=== PATIENT | female | born 1945 | race Caucasian/White ===

== ENCOUNTER → 2017-04-30 | Outpatient (CLI) | payer OTHER ==
[~2017-04-30] MED LIST: AZIT250 PO; Aspir 8181 MG PO; BENZ100A PO; BREO ELLIPTA 21 EACH INH; BUME2 PO; CEPH250A PO; DESL5; ESTR1; FLUT220OIA; LANS30PKT; LINZESS145 MCG PO; LOSA50 PO; MELO7.5 PO; MIRALAX17 GM PO; MOXIOPS RIGHTEYE; Omeprazole20 M1 PO; POTA10T PO; PRAV20; PROACE50 PO; Pravachol40 MG PO; VENL150ER PO; VENL75ER; ZAFI20 PO; [UNRECOGNIZED DRUG - OTHER]
== END | disposition home or self-care (01) ==
LOC: LAB EV 14:55
DX: N39.0 Urinary tract infection, site not specified (principal)
CPT/HCPCS: 87077; 87086; 87186

== ENCOUNTER → 2017-08-25 | Outpatient (CLI) | payer OTHER ==
[~2017-08-25] MED LIST changes: -AZIT250 PO; -Aspir 8181 MG PO; -BENZ100A PO; -BREO ELLIPTA 21 EACH INH; -BUME2 PO; -CEPH250A PO; -LINZESS145 MCG PO; -LOSA50 PO; -MELO7.5 PO; -MIRALAX17 GM PO; -MOXIOPS RIGHTEYE; -Omeprazole20 M1 PO; -POTA10T PO; -Pravachol40 MG PO; -VENL150ER PO; -ZAFI20 PO
== END | disposition home or self-care (01) ==
LOC: LAB SHORT 18:25 → LAB EV 18:25
DX: N39.0 Urinary tract infection, site not specified (principal)
CPT/HCPCS: 87077; 87086; 87186

== ENCOUNTER → 2017-10-18 | Outpatient (CLI) | payer OTHER | END | disposition home or self-care (01) | LOC: LAB 16:45 → LAB SHORT 16:45 | DX: R10.9 Unspecified abdominal pain (principal) | CPT/HCPCS: 87177; 87209 ==

== ENCOUNTER 2018-02-22 18:00 | Inpatient (IN) | payer OTHER ==
[~2018-02-22] VITALS: Ht 162.6 cm; Wt 87.8 kg
[~2018-02-22 18:00] MED LIST changes: +Aspir 8181 MG PO; +BUME2 PO; +CEPH250A PO; +LINZESS145 MCG PO; +LOSA50 PO; +Omeprazole20 M1 PO; +POTA10T PO; +Pravachol40 MG PO; +VENL150ER PO; +ZAFI20 PO
[2018-02-22 19:06] LABS: Magnesium, Blood 1.9 mg/dL (1.6-2.4); Troponin I 0.145 ng/mL (0.000-0.040)
[2018-02-22 19:11] LABS: Albumin, Blood 2.5 g/dL (3.4-5.0); Albumin/Globulin Ratio 0.9 (0.8-1.8); Bilirubin, Total 0.8 mg/dL (0.1-1.0); Bun/Creatinine Ratio 23.2 (12.0-20.0); Calcium, Blood 8.3 mg/dL (8.5-10.1); Creatinine, Blood 1.51 mg/dL (0.40-1.00); Globulin, Blood 2.8 g/dL (2.2-4.0); Potassium, Blood 5.4 mmol/L (3.5-5.5); Total Protein, Blood 5.3 g/dL (6.4-8.2)
[2018-02-22 19:47] LABS: BASOPHILS PERCENT AUTO 0 % (0-2); EOSINOPHILS ABSOLUTE AUTO 0.12 K/mm3 (0.00-0.68); EOSINOPHILS PERCENT AUTO 2 % (0-6); IMMATURE GRAN ABSOLUTE AUTO 0.04 K/mm3 (0.00-0.10); IMMATURE GRAN PERCENT AUTO 1 % (0-1); LYMPHOCYTES ABSOLUTE AUTO 1.32 K/mm3 (0.84-5.20); LYMPHOCYTES PERCENT AUTO 19 % (21-46); MONOCYTES ABSOLUTE AUTO 1.03 K/mm3 (0.16-1.47); MONOCYTES PERCENT AUTO 15 % (4-13); Mean Corpuscular HGB 25.2 pg (26.0-34.0); Mean Corpuscular HGB Conc 29.8 g/dL (31.5-36.5); Mean Corpuscular Volume 85 fL (80-100); Mean Platelet Volume 10.4 fL (9.1-12.4); NEUTROPHILS ABSOLUTE AUTO 4.41 K/mm3 (1.96-9.15); NEUTROPHILS PERCENT AUTO 64 % (41-73); Platelet Count 241 K/mm3 (150-400); RDW Coefficient Variation 14.4 % (11.7-14.2); RDW Standard Deviation 44.4 fL (35.1-46.3); Red Blood Cell Count 1.43 M/mm3 (3.80-5.20); White Blood Cell Count 6.92 K/mm3 (4.00-11.30)
[2018-02-22 19:49] LABS: Hematocrit 12.1 % (33.0-51.0); Hemoglobin 3.6 g/dL (11.5-16.0)
[2018-02-22 19:50] LABS: International Normalized Ratio 1.24; Prothrombin Time Results 12.6 Sec (9.7-11.5)
[2018-02-22] MEDS ORDERED: BREO ELLIPTA 21 EACH INH (21:53)
[2018-02-23 02:21] LABS: Hematocrit 22.1 % (33.0-51.0); Hemoglobin 7.1 g/dL (11.5-16.0)
[2018-02-23 02:40] LABS: Albumin, Blood 2.4 g/dL (3.4-5.0); Albumin/Globulin Ratio 0.9 (0.8-1.8); Bilirubin, Total 1.9 mg/dL (0.1-1.0); Bun/Creatinine Ratio 22.9 (12.0-20.0); Calcium, Blood 7.9 mg/dL (8.5-10.1); Creatinine, Blood 1.44 mg/dL (0.40-1.00); Globulin, Blood 2.6 g/dL (2.2-4.0); Potassium, Blood 4.8 mmol/L (3.5-5.5)
[2018-02-23 05:56] LABS: BASOPHILS ABSOLUTE AUTO 0.02 K/mm3 (0.00-0.23); BASOPHILS PERCENT AUTO 0 % (0-2); EOSINOPHILS ABSOLUTE AUTO 0.08 K/mm3 (0.00-0.68); EOSINOPHILS PERCENT AUTO 1 % (0-6); Hematocrit 21.8 % (33.0-51.0); Hemoglobin 7.2 g/dL (11.5-16.0); IMMATURE GRAN ABSOLUTE AUTO 0.02 K/mm3 (0.00-0.10); IMMATURE GRAN PERCENT AUTO 0 % (0-1); LYMPHOCYTES ABSOLUTE AUTO 1.41 K/mm3 (0.84-5.20); LYMPHOCYTES PERCENT AUTO 25 % (21-46); MONOCYTES ABSOLUTE AUTO 0.85 K/mm3 (0.16-1.47); MONOCYTES PERCENT AUTO 15 % (4-13); Mean Corpuscular HGB 28.3 pg (26.0-34.0); Mean Corpuscular Volume 86 fL (80-100); Mean Platelet Volume 9.7 fL (9.1-12.4); NEUTROPHILS ABSOLUTE AUTO 3.35 K/mm3 (1.96-9.15); NEUTROPHILS PERCENT AUTO 59 % (41-73); Platelet Count 166 K/mm3 (150-400); RDW Coefficient Variation 14.5 % (11.7-14.2); Red Blood Cell Count 2.54 M/mm3 (3.80-5.20); White Blood Cell Count 5.73 K/mm3 (4.00-11.30)
[2018-02-23] MEDS ORDERED: MIRALAX17 GM PO (07:03)
[2018-02-23 10:02] LABS: Hematocrit 22.2 % (33.0-51.0); Hemoglobin 7.2 g/dL (11.5-16.0)
[2018-02-23 10:42] LABS: International Normalized Ratio 1.25; Prothrombin Time Results 12.7 Sec (9.7-11.5)
[2018-02-23 21:30] LABS: Hematocrit 24.7 % (33.0-51.0); Hemoglobin 8.2 g/dL (11.5-16.0)
[2018-02-24 03:38] LABS: Hematocrit 25.6 % (33.0-51.0); Hemoglobin 8.3 g/dL (11.5-16.0)
[2018-02-24 03:39] LABS: BASOPHILS ABSOLUTE AUTO 0.03 K/mm3 (0.00-0.23); BASOPHILS PERCENT AUTO 1 % (0-2); EOSINOPHILS ABSOLUTE AUTO 0.11 K/mm3 (0.00-0.68); EOSINOPHILS PERCENT AUTO 2 % (0-6); Hemoglobin 8.3 g/dL (11.5-16.0); IMMATURE GRAN ABSOLUTE AUTO 0.04 K/mm3 (0.00-0.10); IMMATURE GRAN PERCENT AUTO 1 % (0-1); LYMPHOCYTES ABSOLUTE AUTO 1.38 K/mm3 (0.84-5.20); LYMPHOCYTES PERCENT AUTO 21 % (21-46); MONOCYTES ABSOLUTE AUTO 0.95 K/mm3 (0.16-1.47); MONOCYTES PERCENT AUTO 14 % (4-13); Mean Corpuscular HGB Conc 33.2 g/dL (31.5-36.5); Mean Corpuscular Volume 85 fL (80-100); Mean Platelet Volume 9.7 fL (9.1-12.4); NEUTROPHILS ABSOLUTE AUTO 4.08 K/mm3 (1.96-9.15); NEUTROPHILS PERCENT AUTO 62 % (41-73); Platelet Count 159 K/mm3 (150-400); RDW Coefficient Variation 15.1 % (11.7-14.2); RDW Standard Deviation 46.6 fL (35.1-46.3); Red Blood Cell Count 2.96 M/mm3 (3.80-5.20); White Blood Cell Count 6.59 K/mm3 (4.00-11.30)
[2018-02-24 03:53] LABS: Bun/Creatinine Ratio 20.4 (12.0-20.0); Creatinine, Blood 1.08 mg/dL (0.40-1.00); Potassium, Blood 4.2 mmol/L (3.5-5.5)
[2018-02-24 09:46] LABS: Hematocrit 25.1 % (33.0-51.0); Hemoglobin 8.2 g/dL (11.5-16.0)
[2018-02-24 12:21] LABS: Source, Urine Clean Catch
[2018-02-24 12:35] LABS: Appearance, Urine Hazy (Clear); Bilirubin, Urine Neg (Neg); Blood, Urine 1+ (Neg); Color, Urine Yellow (P-Yellow); Glucose Qualitative, Urine Neg (Neg); Ketones, Urine Neg (Neg); Leukocyte Esterase, Urine 2+ (Neg); Nitrite, Urine Pos (Neg); Protein, Urine 1+ (Neg); Specific Gravity, Urine 1.015 (1.003-1.022); Urobilinogen, Urine NORM (Normal)
[2018-02-24] MEDS ORDERED: MELO7.5 PO (13:01)
[2018-02-24] MEDS ORDERED: CEPH250A PO (13:02)
[2018-02-24 13:04] LABS: Bacteria Many /hpf; Squamous Epithelial Cells Few /hpf (Few); White Blood Cells, Urine 50-100 /hpf (0-5)
[2018-02-24] MEDS ORDERED: LINZESS145 MCG PO (13:10)
[2018-02-24] MEDS ORDERED: BENZ100A PO (13:11)
[2018-02-24] MEDS ORDERED: MOXIOPS RIGHTEYE (13:13)
[2018-02-24] MEDS ORDERED: AZIT250 PO (13:15)
[2018-02-25 08:06] LABS: BASOPHILS ABSOLUTE AUTO 0.03 K/mm3 (0.00-0.23); BASOPHILS PERCENT AUTO 0 % (0-2); EOSINOPHILS PERCENT AUTO 1 % (0-6); Hematocrit 25.3 % (33.0-51.0); Hemoglobin 7.9 g/dL (11.5-16.0); IMMATURE GRAN ABSOLUTE AUTO 0.05 K/mm3 (0.00-0.10); IMMATURE GRAN PERCENT AUTO 0 % (0-1); LYMPHOCYTES ABSOLUTE AUTO 0.88 K/mm3 (0.84-5.20); LYMPHOCYTES PERCENT AUTO 7 % (21-46); MONOCYTES ABSOLUTE AUTO 1.58 K/mm3 (0.16-1.47); MONOCYTES PERCENT AUTO 13 % (4-13); Mean Corpuscular HGB 28.2 pg (26.0-34.0); Mean Corpuscular HGB Conc 31.2 g/dL (31.5-36.5); Mean Platelet Volume 9.7 fL (9.1-12.4); NEUTROPHILS ABSOLUTE AUTO 9.93 K/mm3 (1.96-9.15); NEUTROPHILS PERCENT AUTO 79 % (41-73); Platelet Count 190 K/mm3 (150-400); RDW Coefficient Variation 15.7 % (11.7-14.2); RDW Standard Deviation 52.3 fL (35.1-46.3); White Blood Cell Count 12.57 K/mm3 (4.00-11.30)
[2018-02-25 08:30] LABS: Mean Corpuscular Volume 90 fL (80-100)
[2018-02-25 08:31] LABS: Anion Gap 6 mmol/L (6-16); Blood Urea Nitrogen 16 mg/dL (8-24); Bun/Creatinine Ratio 17.7 (12.0-20.0); CO2, Blood 24 mmol/L (21-32); Calcium, Blood 8.1 mg/dL (8.5-10.1); Chloride, Blood 112 mmol/L (98-108); Creatinine, Blood 0.91 mg/dL (0.40-1.00); Glomerular Filtration Rate >60 (60-); Glucose, Blood 114 mg/dL (70-99); Potassium, Blood 4.3 mmol/L (3.5-5.5); Sodium, Blood 142 mmol/L (136-145)
[2018-02-26 06:07] LABS: BASOPHILS ABSOLUTE AUTO 0.03 K/mm3 (0.00-0.23); BASOPHILS PERCENT AUTO 0 % (0-2); EOSINOPHILS ABSOLUTE AUTO 0.11 K/mm3 (0.00-0.68); EOSINOPHILS PERCENT AUTO 1 % (0-6); Hematocrit 24.4 % (33.0-51.0); Hemoglobin 7.7 g/dL (11.5-16.0); IMMATURE GRAN ABSOLUTE AUTO 0.04 K/mm3 (0.00-0.10); IMMATURE GRAN PERCENT AUTO 0 % (0-1); LYMPHOCYTES ABSOLUTE AUTO 1.01 K/mm3 (0.84-5.20); LYMPHOCYTES PERCENT AUTO 9 % (21-46); MONOCYTES ABSOLUTE AUTO 1.25 K/mm3 (0.16-1.47); MONOCYTES PERCENT AUTO 11 % (4-13); Mean Corpuscular HGB 28.4 pg (26.0-34.0); Mean Corpuscular HGB Conc 31.6 g/dL (31.5-36.5); Mean Corpuscular Volume 90 fL (80-100); Mean Platelet Volume 9.3 fL (9.1-12.4); NEUTROPHILS PERCENT AUTO 79 % (41-73); Platelet Count 161 K/mm3 (150-400); RDW Coefficient Variation 15.7 % (11.7-14.2); RDW Standard Deviation 50.4 fL (35.1-46.3); Red Blood Cell Count 2.71 M/mm3 (3.80-5.20); White Blood Cell Count 11.74 K/mm3 (4.00-11.30)
[2018-02-26 06:25] LABS: Albumin, Blood 2.3 g/dL (3.4-5.0); Anion Gap 6 mmol/L (6-16); Blood Urea Nitrogen 19 mg/dL (8-24); Bun/Creatinine Ratio 17.6 (12.0-20.0); CO2, Blood 24 mmol/L (21-32); Calcium, Blood 8.1 mg/dL (8.5-10.1); Chloride, Blood 111 mmol/L (98-108); Creatinine, Blood 1.08 mg/dL (0.40-1.00); Glomerular Filtration Rate 53 (60-); Glucose, Blood 103 mg/dL (70-99); Phosphorus, Blood 2.4 mg/dL (2.5-4.9); Potassium, Blood 4.2 mmol/L (3.5-5.5); Sodium, Blood 141 mmol/L (136-145)
[2018-02-27 04:40] LABS: Hematocrit 27.1 % (33.0-51.0); Hemoglobin 8.8 g/dL (11.5-16.0); Mean Corpuscular HGB 28.7 pg (26.0-34.0); Mean Corpuscular HGB Conc 32.5 g/dL (31.5-36.5); Mean Corpuscular Volume 88 fL (80-100); Mean Platelet Volume 9.5 fL (9.1-12.4); Platelet Count 148 K/mm3 (150-400); RDW Coefficient Variation 16.4 % (11.7-14.2); RDW Standard Deviation 50.4 fL (35.1-46.3); Red Blood Cell Count 3.07 M/mm3 (3.80-5.20); White Blood Cell Count 9.13 K/mm3 (4.00-11.30)
[2018-02-27 05:14] LABS: Albumin, Blood 2.3 g/dL (3.4-5.0); Anion Gap 7 mmol/L (6-16); Blood Urea Nitrogen 16 mg/dL (8-24); Bun/Creatinine Ratio 17.9 (12.0-20.0); CO2, Blood 24 mmol/L (21-32); Calcium, Blood 8.1 mg/dL (8.5-10.1); Chloride, Blood 111 mmol/L (98-108); Glomerular Filtration Rate >60 (60-); Glucose, Blood 83 mg/dL (70-99); Phosphorus, Blood 2.6 mg/dL (2.5-4.9); Potassium, Blood 4.1 mmol/L (3.5-5.5); Sodium, Blood 142 mmol/L (136-145)
== END 2018-03-01 14:16 | DRG 347 ==
LOC: ER 18:00 → ICUW 20:47 → SURS 02-24 15:00
PROVIDERS: Emergency Medicine; Family Medicine; Internal Medicine; Nurse Practitioner Acute Care; Surgery
PROC: 30233N1 Transfusion of Nonautologous Red Blood Cells into Peripheral Vein, Percutaneous Approach (ICD-10-PCS; 2018-02-23)
PROC: 30233K1 Transfusion of Nonautologous Frozen Plasma into Peripheral Vein, Percutaneous Approach (ICD-10-PCS; 2018-02-23)
PROC: 06BY0ZC Excision of Hemorrhoidal Plexus, Open Approach (ICD-10-PCS; principal; 2018-02-24 17:00)
DX: K64.8 Other hemorrhoids (principal); R57.8 Other shock; D62 Acute posthemorrhagic anemia; N17.9 Acute kidney failure, unspecified; K76.6 Portal hypertension; N39.0 Urinary tract infection, site not specified; I50.30 Unspecified diastolic (congestive) heart failure; E78.5 Hyperlipidemia, unspecified; R79.89 Other specified abnormal findings of blood chemistry; F32.9 Major depressive disorder, single episode, unspecified; K64.2 Third degree hemorrhoids; B96.20 Unspecified Escherichia coli [E. coli] as the cause of diseases classified elsewhere; I11.0 Hypertensive heart disease with heart failure; R53.81 Other malaise; J20.9 Acute bronchitis, unspecified
CPT/HCPCS: 36415; 36430; 71045; 78278; 80048; 80053; 80069; 81001; 82550; 82947; 83735; 83880; 84484; 85014; 85018; 85025; 85027; 85610; 85730; 86850; 86900; 86901; 86923; 87077; 87086; 87186; 88304; 93005; 93010; 93306; 94640; 94760; 96360; 97110; 97116; 97162; 97166; 97530; 97535; 99285-25; A9560; C9113; G8978; G8979; G8987; G8988; J0696; J1170; J1940; J2250; J3010; J7030; J7040; J7120; P9016; P9059

== ENCOUNTER → 2018-08-15 | Outpatient (CLI) | payer OTHER ==
[~2018-08-15] MED LIST changes: +AZIT250 PO; +BENZ100A PO; +BREO ELLIPTA 21 EACH INH; +MELO7.5 PO; +MIRALAX17 GM PO; +MOXIOPS RIGHTEYE
[2018-08-17 05:53] LABS: Stool Occult Bld Immuno 1 Negative (NEGATIVE); Stool Occult Bld Immuno 2 Negative (NEGATIVE); Stool Occult Bld Immuno 3 Negative (NEGATIVE)
== END | disposition home or self-care (01) ==
LOC: LAB SHORT 12:07 → LAB 12:07
PROVIDERS: Physician Assistant
DX: D50.9 Iron deficiency anemia, unspecified (principal)
CPT/HCPCS: 82274

== ENCOUNTER 2019-04-04 16:29 | Inpatient (IN) | payer OTHER ==
[~2019-04-04] VITALS: Ht 165.1 cm; Wt 76.0 kg
[~2019-04-04 16:29] MED LIST changes: -VENL150ER PO; +VENL75ER PO
[2019-04-04 17:53] LABS: Source, Urine Voided
[2019-04-04 17:58] LABS: Appearance, Urine Clear (Clear); Blood, Urine 1+ (Neg); Color, Urine Amber (P-Yellow); Glucose Qualitative, Urine Neg (Neg); Ketones, Urine 1+ (Neg); Leukocyte Esterase, Urine 1+ (Neg); Nitrite, Urine Neg (Neg); Protein, Urine 1+ (Neg); Specific Gravity, Urine 1.015 (1.003-1.022); Urobilinogen, Urine 2+ (Normal)
[2019-04-04 18:01] LABS: BASOPHILS ABSOLUTE AUTO 0.02 K/mm3 (0.00-0.23); BASOPHILS PERCENT AUTO 0 % (0-2); EOSINOPHILS PERCENT AUTO 4 % (0-6); Hematocrit 23.2 % (33.0-51.0); Hemoglobin 7.5 g/dL (11.5-16.0); IMMATURE GRAN ABSOLUTE AUTO 0.03 K/mm3 (0.00-0.10); IMMATURE GRAN PERCENT AUTO 1 % (0-1); LYMPHOCYTES ABSOLUTE AUTO 0.95 K/mm3 (0.84-5.20); LYMPHOCYTES PERCENT AUTO 17 % (21-46); MONOCYTES ABSOLUTE AUTO 0.55 K/mm3 (0.16-1.47); MONOCYTES PERCENT AUTO 10 % (4-13); Mean Corpuscular HGB 30.6 pg (26.0-34.0); Mean Corpuscular HGB Conc 32.3 g/dL (31.5-36.5); Mean Corpuscular Volume 95 fL (80-100); Mean Platelet Volume 9.2 fL (9.1-12.4); NEUTROPHILS ABSOLUTE AUTO 4.02 K/mm3 (1.96-9.15); NEUTROPHILS PERCENT AUTO 70 % (41-73); Platelet Count 163 K/mm3 (150-400); RDW Coefficient Variation 15.3 % (11.7-14.2); Red Blood Cell Count 2.45 M/mm3 (3.80-5.20); White Blood Cell Count 5.77 K/mm3 (4.00-11.30)
[2019-04-04 18:11] LABS: Bilirubin, Urine 1+ (Neg)
[2019-04-04 18:15] LABS: International Normalized Ratio 1.34; Prothrombin Time Results 14.1 Sec (9.7-11.5)
[2019-04-04 18:17] LABS: Bacteria Many /hpf; Red Blood Cells, Urine 0-2 /hpf (0-2); Squamous Epithelial Cells Mod /hpf (Few)
[2019-04-04 18:18] LABS: Amorphous Light (0-Heavy)
[2019-04-04 18:24] LABS: Alanine Aminotransfer (ALT/SGP 18 U/L (12-78); Albumin, Blood 2.4 g/dL (3.4-5.0); Albumin/Globulin Ratio 0.8 (0.8-1.8); Alk Phos 69 U/L (50-136); Anion Gap 7 mmol/L (6-16); Aspartate Aminotrans (AST/SGOT 39 U/L (12-37); Bilirubin, Total 3.4 mg/dL (0.1-1.0); Blood Urea Nitrogen 19 mg/dL (8-24); Bun/Creatinine Ratio 21.9 (12.0-20.0); CO2, Blood 24 mmol/L (21-32); Calcium, Blood 8.7 mg/dL (8.5-10.1); Chloride, Blood 109 mmol/L (98-108); Creatinine, Blood 0.87 mg/dL (0.40-1.00); Ethanol (Alcohol), Blood, Med <3 mg/dL; Globulin, Blood 3.2 g/dL (2.2-4.0); Glomerular Filtration Rate >60 (60-); Glucose, Blood 91 mg/dL (70-99); Potassium, Blood 3.3 mmol/L (3.5-5.5); Sodium, Blood 140 mmol/L (136-145); Total Protein, Blood 5.6 g/dL (6.4-8.2); Troponin I 0.042 ng/mL (0.000-0.040)
[2019-04-04] MEDS ORDERED: ALBU90OI INH (20:05)
[2019-04-04] MEDS ORDERED: THERA-D2000 UNIT PO (20:17)
--- NOTE | 2019-04-04 22:33 | NUR ---
PATIENT IS A NEW ADMIT FROM THE ED. FOUR PERSON TRANSFER FROM [facility] TO BED. AXOX 3 WITH CONFUSION AT TIMES. FAMILY PRESENT ON ADMIT. BEDFAST AND BED ALARM ACTIVATED. ON ROOM AIR. REPORTS FRAGILE SKIN WITH BRUISING AND PAIN WITH MOVEMENT. ORIENTED TO ROOM AND CALL LIGHT SYSTEM. BLOOD CONSENT SIGNED. WILL CONTINUE TO MONITOR.
[2019-04-04 23:48] LABS: Percent Saturation 9.6 % (15.0-50.0)
--- NOTE | 2019-04-04 23:50 | NUR ---
ONE UNIT PRBC TRANSFUSING. TOLERATING WELL AT THIS TIME.
[2019-04-05 02:31] LABS: Hematocrit 22.5 % (33.0-51.0); Hemoglobin 7.5 g/dL (11.5-16.0); IMMATURE RETIC FRACTION 25.2 % (2.3-16.0); RETIC HGB EQUIVALENT 32.3 pg (28.20-36.60); RETICULOCYTE COUNT PERCENT 3.87 % (0.50-2.50)
[2019-04-05 02:49] LABS: Troponin I 0.042 ng/mL (0.000-0.040)
--- NOTE | 2019-04-05 03:15 | NUR ---
PATIENT RECEIVED ONE UNIT PRBC; ONE IV ROCEPHIN; IV POTASSIUM CHLORIDE 20 MEQ X TWO AND IV ALUBUMIN 25% 100 mL SINCE ADMIT. REPORTS NOT SLEEPING WELL X FIVE NIGHTS. CALL LIGHT IN REACH.
--- NOTE | 2019-04-05 04:37 | NUR ---
SHIFT SUMMARY PATIENT HAD NO ACUTE CHANGES OBSERVED. AXOX 3 W/CONFUSION AT TIMES, BEDREST. REPORTED VISUAL HALLUCINATIONS PRIOR TO ADMIT AT HOME. PATIENT REPORTS PAIN WITH TOUCH ALL OVER HER BODY WITH HX OF CHRONIC ANEMIA. DENIES SOB AND N/V. LOW GRADE TEMPERATURE ON ADMIT AND DURING BLOOD TRANSFUSION. IV ROCEPH, IV ALBUMIN, IV POTASSIUM INFUSED THIS SHIFT. PIVS REMAIN INTACT. PARAMEDICAL AIDE REPORTS NSR 96. TAKES MEDICATION WHOLE WITH WATER. DR SY IN ROOM FOR ASSESSMENT AFTER ADMIT. ORDERS PLACED. ON ROOM AIR. COOPERATIVE WITH CARE. CALL LIGHT IN REACH. BED IN LOWEST POSITION. BED ALARM ACTIVATED WITH NO BED EXITS THIS SHIFT. WILL CONTINUE TO MONITOR UNTIL DAY SHIFT NURSE ASSUMES CARE.
--- NOTE | 2019-04-05 05:27 | NUR ---
BLOOD BANK REPORTS CALLING DR SY AND HE REPORTS TO CANCEL THE OTHER TWO UNITS OF PRBC. BLOOD BANK CALLED BACK AND CANCELLED REMAINING TWO UNITS OF PRBC PER DR SY.
[2019-04-05 10:51] LABS: Hematocrit 27.4 % (33.0-51.0); Hemoglobin 8.7 g/dL (11.5-16.0); Mean Corpuscular HGB 29.9 pg (26.0-34.0); Mean Corpuscular HGB Conc 31.8 g/dL (31.5-36.5); Mean Corpuscular Volume 94 fL (80-100); Mean Platelet Volume 9.1 fL (9.1-12.4); Platelet Count 177 K/mm3 (150-400); RDW Coefficient Variation 15.5 % (11.7-14.2); RDW Standard Deviation 52.6 fL (35.1-46.3); Red Blood Cell Count 2.91 M/mm3 (3.80-5.20); White Blood Cell Count 6.97 K/mm3 (4.00-11.30)
[2019-04-05 11:07] LABS: Troponin I 0.033 ng/mL (0.000-0.040)
[2019-04-05 11:12] LABS: Alanine Aminotransfer (ALT/SGP 20 U/L (12-78); Albumin/Globulin Ratio 0.9 (0.8-1.8); Alk Phos 72 U/L (50-136); Anion Gap 7 mmol/L (6-16); Aspartate Aminotrans (AST/SGOT 45 U/L (12-37); Bilirubin, Total 3.4 mg/dL (0.1-1.0); Blood Urea Nitrogen 17 mg/dL (8-24); Bun/Creatinine Ratio 19.2 (12.0-20.0); CO2, Blood 23 mmol/L (21-32); Chloride, Blood 109 mmol/L (98-108); Creatinine, Blood 0.88 mg/dL (0.40-1.00); Globulin, Blood 3.2 g/dL (2.2-4.0); Glomerular Filtration Rate >60 (60-); Glucose, Blood 119 mg/dL (70-99); Potassium, Blood 3.8 mmol/L (3.5-5.5); Sodium, Blood 139 mmol/L (136-145); Total Protein, Blood 6.2 g/dL (6.4-8.2)
[2019-04-05 15:29] LABS: Hematocrit 25.6 % (33.0-51.0); Hemoglobin 8.4 g/dL (11.5-16.0)
--- NOTE | 2019-04-05 16:05 | NUR ---
She has been sitting in the recliner since breakfast with her legs raised except during meals. Her family has been all around her. She has very fragile ecchymotic skin. She has no complaints. The family is waiting for to round. She just did. Will start a diuretic. Tele nsr. Blood count stable.
--- NOTE | 2019-04-05 19:43 | NUR ---
HER BLOOD COUNT IS STABLE. A DIURETIC WAS GIVEN PO THIS AFTERNOON. HER LEGS ARE VERY EDEMATOUS. SHE REFUSES HER SCD'S BECAUSE HER SKIN HURTS TO BE TOUCHED. TELE NSR. I.S UP TO 1250. FLUTTER AT BEDSIDE. SHE SAT UP A LOT TODAY WITH LEGS ELEVATED. NO SIGNS OF BLEEDING.
--- NOTE | 2019-04-06 04:37 | NUR ---
SHIFT SUMMARY: VSS. AFEB. A/O X2-3. FORGETFUL AND SOMEWHAT CONFUSED DURING THE NIGHT. REDIRECTS EASILY. UPPER LOBES CLEAR, MID AND LOWER LOBES DIM. OCCASIONAL PRODUCTIVE SOUNDING COUGH. PT STATES SHE IS NOT SPITTING SPUTUM UP AND IS INSTEAD SWALLOWING IT. NO SOB. MAINTAINING SATS AT 92-94% ON RA. LE PAINFUL TO TOUCH. SLEPT MUCH OF THE NIGHT. NO ACUTE CHANGES. BED LOW, CALL BUTTON IN REACH, BED ALARM ON. WILL CONT. TO MONITOR.
[2019-04-06 05:23] LABS: BASOPHILS ABSOLUTE AUTO 0.03 K/mm3 (0.00-0.23); BASOPHILS PERCENT AUTO 1 % (0-2); EOSINOPHILS ABSOLUTE AUTO 0.26 K/mm3 (0.00-0.68); EOSINOPHILS PERCENT AUTO 5 % (0-6); Hematocrit 22.1 % (33.0-51.0); Hemoglobin 7.1 g/dL (11.5-16.0); IMMATURE GRAN ABSOLUTE AUTO 0.03 K/mm3 (0.00-0.10); IMMATURE GRAN PERCENT AUTO 1 % (0-1); LYMPHOCYTES ABSOLUTE AUTO 1.27 K/mm3 (0.84-5.20); LYMPHOCYTES PERCENT AUTO 25 % (21-46); MONOCYTES ABSOLUTE AUTO 0.53 K/mm3 (0.16-1.47); MONOCYTES PERCENT AUTO 10 % (4-13); Mean Corpuscular HGB 30.5 pg (26.0-34.0); Mean Corpuscular HGB Conc 32.1 g/dL (31.5-36.5); Mean Corpuscular Volume 95 fL (80-100); Mean Platelet Volume 9.5 fL (9.1-12.4); NEUTROPHILS ABSOLUTE AUTO 2.99 K/mm3 (1.96-9.15); NEUTROPHILS PERCENT AUTO 58 % (41-73); Platelet Count 126 K/mm3 (150-400); RDW Coefficient Variation 15.6 % (11.7-14.2); RDW Standard Deviation 52.9 fL (35.1-46.3); Red Blood Cell Count 2.33 M/mm3 (3.80-5.20); White Blood Cell Count 5.11 K/mm3 (4.00-11.30)
[2019-04-06 05:55] LABS: Alanine Aminotransfer (ALT/SGP 20 U/L (12-78); Albumin, Blood 2.3 g/dL (3.4-5.0); Albumin/Globulin Ratio 0.8 (0.8-1.8); Alk Phos 69 U/L (50-136); Anion Gap 7 mmol/L (6-16); Aspartate Aminotrans (AST/SGOT 37 U/L (12-37); Bilirubin, Total 2.2 mg/dL (0.1-1.0); Blood Urea Nitrogen 19 mg/dL (8-24); CO2, Blood 23 mmol/L (21-32); Calcium, Blood 8.6 mg/dL (8.5-10.1); Chloride, Blood 112 mmol/L (98-108); Creatinine, Blood 0.91 mg/dL (0.40-1.00); Globulin, Blood 2.9 g/dL (2.2-4.0); Glomerular Filtration Rate >60 (60-); Glucose, Blood 91 mg/dL (70-99); Potassium, Blood 3.9 mmol/L (3.5-5.5); Sodium, Blood 142 mmol/L (136-145); Total Protein, Blood 5.2 g/dL (6.4-8.2)
--- NOTE | 2019-04-06 06:32 | NUR ---
CONTACTED HOSPITALIST REGARDING HGB 7.1. DR. CHANCE ORDERED 1 UNIT PRBC.
[2019-04-06 11:44] LABS: Hemoglobin 8.1 g/dL (11.5-16.0)
--- NOTE | 2019-04-06 17:16 | NUR ---
PATIENT ORIENTED TO SELF AND FAMILY. REPEATS QUESTIONS FREQUENTLY. CALM AND COOPERATIVE WITH CARE. NPO AFTER BREAKFAST THIS AM FOR A GI CONSULT, DR. GAMEZ'S OFFICE CALLED THIS AM. 1 UNIT OF BLOOD GIVEN THIS AM AND REPEAT HGB CAME UP TO 8.1. TREATING UTI WITH ROCEPHIN. SKIN PAINFUL TO THE TOUCH. EDEMA TO BLE AND L ARM. VSS, ON RA. FALL PRECAUTIONS PER UNIT PROTOCOL. PATIENT IS UP WITH A FWW, GB AND 1 ASSIST. 18GIV TO R HAND AND 22G TO L FA WNL AND SL. CALM AND COOPERATIVE WITH CARE. HAS NOT TRIED TO GET UP UNASSISTED THIS SHIFT.
[2019-04-07 05:16] LABS: BASOPHILS ABSOLUTE AUTO 0.02 K/mm3 (0.00-0.23); BASOPHILS PERCENT AUTO 0 % (0-2); EOSINOPHILS ABSOLUTE AUTO 0.26 K/mm3 (0.00-0.68); EOSINOPHILS PERCENT AUTO 5 % (0-6); Hematocrit 25.5 % (33.0-51.0); Hemoglobin 8.1 g/dL (11.5-16.0); IMMATURE GRAN ABSOLUTE AUTO 0.02 K/mm3 (0.00-0.10); IMMATURE GRAN PERCENT AUTO 0 % (0-1); LYMPHOCYTES ABSOLUTE AUTO 1.23 K/mm3 (0.84-5.20); LYMPHOCYTES PERCENT AUTO 23 % (21-46); MONOCYTES ABSOLUTE AUTO 0.53 K/mm3 (0.16-1.47); MONOCYTES PERCENT AUTO 10 % (4-13); Mean Corpuscular HGB 29.7 pg (26.0-34.0); Mean Corpuscular HGB Conc 31.8 g/dL (31.5-36.5); Mean Corpuscular Volume 93 fL (80-100); Mean Platelet Volume 9.1 fL (9.1-12.4); NEUTROPHILS ABSOLUTE AUTO 3.37 K/mm3 (1.96-9.15); NEUTROPHILS PERCENT AUTO 62 % (41-73); Platelet Count 118 K/mm3 (150-400); RDW Coefficient Variation 15.2 % (11.7-14.2); RDW Standard Deviation 51.9 fL (35.1-46.3); Red Blood Cell Count 2.73 M/mm3 (3.80-5.20); White Blood Cell Count 5.43 K/mm3 (4.00-11.30)
--- NOTE | 2019-04-07 05:40 | NUR ---
SHIFT SUMMARY: VSS. AFEB. A/O WITH SOME FORGETFULLNESS AND REPEATING OF COMMENTS AND QUESTIONS. TALKATIVE, GOOD MOOD, SHARING CONCERNS OF PLACEMENT AFTER DISCHARGE. PT DOES REMEMBER SHE IS TO HAVE AN ENDOSCOPY TODAY. ABD SOFT, SLIGHT TENDERNESS IN UPPER RIGHT QUADRANT, NON-DISTENDED. COMMUNICATING NEEDS WELL. SLEPT THROUGH MUCH OF THE NIGHT. CONT WITH SUPERIFICIAL PAIN TO THE TOUCH. CONT WITH EDEMA IN L ELBOW AND BLE. LEGS ELEVATED. BED LOW, BED ALARM ON, CALL BUTTON IN REACH. NO ACUTE CHANGES, WILL CONT TO MONITOR.
[2019-04-07 05:52] LABS: Anion Gap 7 mmol/L (6-16); Blood Urea Nitrogen 17 mg/dL (8-24); Bun/Creatinine Ratio 19.9 (12.0-20.0); CO2, Blood 22 mmol/L (21-32); Calcium, Blood 8.7 mg/dL (8.5-10.1); Chloride, Blood 112 mmol/L (98-108); Creatinine, Blood 0.86 mg/dL (0.40-1.00); Glomerular Filtration Rate >60 (60-); Glucose, Blood 90 mg/dL (70-99); Potassium, Blood 3.7 mmol/L (3.5-5.5); Sodium, Blood 141 mmol/L (136-145)
--- NOTE | 2019-04-07 16:20 | NUR ---
PATIENT TO DAY SURGERY FOR EGD. NPO SINCE AFTER BREAKFAST. PROTONIX GTT STOPPED FOR TRANSPORT.
--- NOTE | 2019-04-07 16:46 | NUR ---
History, Chart, Medications and Allergies reviewed before start of procedure.Lungs clear T/O to Auscultation. Patient confirms NPO status and agrees with scheduled surgery. VSS.
--- NOTE | 2019-04-07 16:57 | NUR ---
04/07/19 1657 MINDA HUMMEL History, Chart, Medications and Allergies reviewed before start of procedure.3-LEAD EKG REVIEWED WITH PHYSICIAN PRIOR TO START OF PROCEDURE.O2 VIA N/C INTACT THROUGHOUT SEDATION/PROCEDURE. MONITOR INTACT WITH CONTINUOUS PULSE OXIMETRY AND INTERMITTENT BP.MAC WITH DR. PERRY.
--- NOTE | 2019-04-07 18:32 | NUR ---
PATIENT BACK FROM ECG AND VSS. PATIENT A/OX3, BUT REPEATS QUESTIONS FREQUENTLY AND NEEDS REMINDERS ABOUT PLAN OF CARE. PROTONIX GTT D/C'D AND CHANGED TO ORAL. PATIENT USES CALL LIGHT APPROPRIATELY FOR ASSISTANCE. UP WITH FWW, GB AND 1 ASSIST TO BSC. SKIN PAINFUL TO THE TOUCH. LUNGS CLEAR/DIM ON RA. CONTINUES TO HAVE A DRY HARSH COUGH, USING FLUTTER VALVE AND IS. FALL PRECAUTIONS IN PLACE PER UNIT PROTOCOL. UNSURE OF PLAN FOR D/C, BUT MAY NEED PLACEMENT.
--- NOTE | 2019-04-08 02:45 | NUR ---
HAVING AUDITORY HALLUCINATIONS A FEW MINUTES AT A TIME FOR 15 MINUTES ONLY.
--- NOTE | 2019-04-08 03:30 | NUR ---
SHIFT SUMMARY PATIENT HAD NO ACUTE CHANGES OBSERVED THIS SHIFT. AXOX 3 WITH CONFUSION REPEATING HERSELF AT TIMES. ONE ASSIST WITH FWW/GAIT BELT TO BSC. PIVS REMAIN INTACT. IV ABX INFUSED. VSS/AFEBRILE. DRY HARSH COUGH. UNIVERSAL WINDING MACHINE OPERATOR REPORTS NSR 98. BED ALARM ACTIVATED FOR SAFETY AND NO BED EXIT EVENTS. DENIES SOB AND N/V. REPORTS PAIN WITH TOUCH T/O HER BODY. HX CHRONIC ANEMIA. CALL LIGHT IN REACH. BED IN LOWEST POSITION. WILL CONTINUE TO MONITOR UNTIL DAY SHIFT NURSE ASSUMES CARE.
[2019-04-08 08:28] LABS: Hematocrit 25.6 % (33.0-51.0); Hemoglobin 8.4 g/dL (11.5-16.0)
[2019-04-08 08:48] LABS: Anion Gap 6 mmol/L (6-16); Blood Urea Nitrogen 14 mg/dL (8-24); Bun/Creatinine Ratio 18.9 (12.0-20.0); CO2, Blood 23 mmol/L (21-32); Calcium, Blood 8.8 mg/dL (8.5-10.1); Chloride, Blood 113 mmol/L (98-108); Creatinine, Blood 0.74 mg/dL (0.40-1.00); Glomerular Filtration Rate >60 (60-); Glucose, Blood 83 mg/dL (70-99); Potassium, Blood 3.7 mmol/L (3.5-5.5); Sodium, Blood 142 mmol/L (136-145)
--- NOTE | 2019-04-08 18:07 | NUR ---
NO ACUTE CHANGES TO PATIENT. SHE HAS BEEN ADVANCED TO REGULAR DIET, TOLERATING WELL. PATIENT HAS MOMENTS OF CONFUSION BUT IS PLEASANT AND COOPERATIVE WITH CARES . CALL LIGHT WITH IN REACH.
--- NOTE | 2019-04-09 03:46 | NUR ---
SHIFT SUMMARY PATIENT HAD NO ACUTE CHANGES OBSERVED. AXO X3 WITH MILD CONFUSION. VSS/AFEBRILE. DENIES PAIN,SOB, AND N/V. PIVS REMAIN INTACT. AIR ANTISUBMARINE OFFICER REPORTS SR 92. ONE ASSIST W/FWW/GAIT TO BS. COOPERATIVE WITH CARE. CALL LIGHT IN REACH. BED IN LOWEST POSITION. WILL CONTINUE TO MONITOR UNTIL DAY SHIFT NURSE ASSUMES CARE.
[2019-04-09 05:18] LABS: BASOPHILS ABSOLUTE AUTO 0.03 K/mm3 (0.00-0.23); BASOPHILS PERCENT AUTO 1 % (0-2); EOSINOPHILS ABSOLUTE AUTO 0.27 K/mm3 (0.00-0.68); EOSINOPHILS PERCENT AUTO 5 % (0-6); Hematocrit 24.7 % (33.0-51.0); Hemoglobin 7.8 g/dL (11.5-16.0); IMMATURE GRAN ABSOLUTE AUTO 0.06 K/mm3 (0.00-0.10); IMMATURE GRAN PERCENT AUTO 1 % (0-1); LYMPHOCYTES ABSOLUTE AUTO 1.16 K/mm3 (0.84-5.20); LYMPHOCYTES PERCENT AUTO 21 % (21-46); MONOCYTES PERCENT AUTO 13 % (4-13); Mean Corpuscular HGB 29.9 pg (26.0-34.0); Mean Corpuscular HGB Conc 31.6 g/dL (31.5-36.5); Mean Corpuscular Volume 95 fL (80-100); Mean Platelet Volume 9.4 fL (9.1-12.4); NEUTROPHILS ABSOLUTE AUTO 3.37 K/mm3 (1.96-9.15); NEUTROPHILS PERCENT AUTO 60 % (41-73); Platelet Count 128 K/mm3 (150-400); RDW Coefficient Variation 15.4 % (11.7-14.2); RDW Standard Deviation 52.3 fL (35.1-46.3); Red Blood Cell Count 2.61 M/mm3 (3.80-5.20); White Blood Cell Count 5.59 K/mm3 (4.00-11.30)
[2019-04-09 05:42] LABS: Anion Gap 6 mmol/L (6-16); Blood Urea Nitrogen 14 mg/dL (8-24); Bun/Creatinine Ratio 18.1 (12.0-20.0); CO2, Blood 23 mmol/L (21-32); Calcium, Blood 8.9 mg/dL (8.5-10.1); Chloride, Blood 111 mmol/L (98-108); Creatinine, Blood 0.77 mg/dL (0.40-1.00); Glomerular Filtration Rate >60 (60-); Glucose, Blood 83 mg/dL (70-99); Potassium, Blood 3.7 mmol/L (3.5-5.5); Sodium, Blood 140 mmol/L (136-145)
--- NOTE | 2019-04-09 18:37 | NUR ---
No acute changes noted. No current complaints of pain or discomfort note. No GI bleeding noted this shift. Will continue to monitor for changes.
--- NOTE | 2019-04-10 00:55 | NUR ---
PATIENT UP USING LOTION PROVIDED. REPORTS SHE SLEEPS ON/OFF AND WILL START TO READ SOON. CALL LIGHT IN REACH.
--- NOTE | 2019-04-10 03:19 | NUR ---
SHIFT SUMMARY PATIENT HAD NO ACUTE CHANGES OBSERVED. AXOX 3 WITH MILD CONFUSION. ONE ASSIST TO BSC WITH FWW. DENIES PAIN, SOB, AND N/V. PIVS REMAIN INTACT. VSS/FEBRILE. PATIENT SLEPT ON AND OFF. WANTING TO READ WHEN SHE WAS AWAKE OR WATCH TV. COOPERATIVE WITH CARE. ON ROOM AIR. CALL LIGHT IN REACH. BED IN LOWEST POSITION. WILL CONTINUE TO MONITOR UNTIL DAY SHIFT NURSE ASSUMES CARE.
[2019-04-10 05:38] LABS: BASOPHILS ABSOLUTE AUTO 0.04 K/mm3 (0.00-0.23); BASOPHILS PERCENT AUTO 1 % (0-2); EOSINOPHILS ABSOLUTE AUTO 0.27 K/mm3 (0.00-0.68); EOSINOPHILS PERCENT AUTO 5 % (0-6); Hematocrit 25.1 % (33.0-51.0); Hemoglobin 7.9 g/dL (11.5-16.0); IMMATURE GRAN ABSOLUTE AUTO 0.15 K/mm3 (0.00-0.10); IMMATURE GRAN PERCENT AUTO 3 % (0-1); LYMPHOCYTES ABSOLUTE AUTO 1.25 K/mm3 (0.84-5.20); LYMPHOCYTES PERCENT AUTO 21 % (21-46); MONOCYTES ABSOLUTE AUTO 0.68 K/mm3 (0.16-1.47); MONOCYTES PERCENT AUTO 11 % (4-13); Mean Corpuscular HGB 30.5 pg (26.0-34.0); Mean Corpuscular HGB Conc 31.5 g/dL (31.5-36.5); Mean Corpuscular Volume 97 fL (80-100); Mean Platelet Volume 9.7 fL (9.1-12.4); NEUTROPHILS ABSOLUTE AUTO 3.58 K/mm3 (1.96-9.15); NEUTROPHILS PERCENT AUTO 60 % (41-73); Platelet Count 138 K/mm3 (150-400); RDW Coefficient Variation 15.7 % (11.7-14.2); RDW Standard Deviation 54.4 fL (35.1-46.3); Red Blood Cell Count 2.59 M/mm3 (3.80-5.20); White Blood Cell Count 5.97 K/mm3 (4.00-11.30)
[2019-04-10 06:06] LABS: Anion Gap 8 mmol/L (6-16); Blood Urea Nitrogen 17 mg/dL (8-24); Bun/Creatinine Ratio 21.1 (12.0-20.0); CO2, Blood 21 mmol/L (21-32); Chloride, Blood 111 mmol/L (98-108); Creatinine, Blood 0.81 mg/dL (0.40-1.00); Glomerular Filtration Rate >60 (60-); Glucose, Blood 84 mg/dL (70-99); Potassium, Blood 3.7 mmol/L (3.5-5.5); Sodium, Blood 140 mmol/L (136-145)
--- NOTE | 2019-04-10 14:21 | NUR ---
PT GAVE STUDENT NURSE PERMISSION FOR CARE ON 04/10/19 FOR 04/11/19.
--- NOTE | 2019-04-10 18:47 | NUR ---
SHIFT SUMMARY- PT ALERT WITH SOME INTERMITENT CONFUSION. PT IS PLESANT AND COOPERATIVE. SHE IS UP AND AMBULATING TO THE RESTROOM WITH ASSISTANCE. PT EATING AND DRINKING WELL.
[2019-04-11 05:45] LABS: BASOPHILS ABSOLUTE AUTO 0.03 K/mm3 (0.00-0.23); BASOPHILS PERCENT AUTO 1 % (0-2); EOSINOPHILS ABSOLUTE AUTO 0.22 K/mm3 (0.00-0.68); EOSINOPHILS PERCENT AUTO 4 % (0-6); Hematocrit 25.1 % (33.0-51.0); IMMATURE GRAN ABSOLUTE AUTO 0.12 K/mm3 (0.00-0.10); IMMATURE GRAN PERCENT AUTO 2 % (0-1); LYMPHOCYTES ABSOLUTE AUTO 1.15 K/mm3 (0.84-5.20); LYMPHOCYTES PERCENT AUTO 20 % (21-46); MONOCYTES ABSOLUTE AUTO 0.73 K/mm3 (0.16-1.47); MONOCYTES PERCENT AUTO 13 % (4-13); Mean Corpuscular HGB 30.4 pg (26.0-34.0); Mean Corpuscular HGB Conc 31.9 g/dL (31.5-36.5); Mean Corpuscular Volume 95 fL (80-100); Mean Platelet Volume 9.6 fL (9.1-12.4); NEUTROPHILS ABSOLUTE AUTO 3.52 K/mm3 (1.96-9.15); NEUTROPHILS PERCENT AUTO 61 % (41-73); Platelet Count 143 K/mm3 (150-400); RDW Coefficient Variation 15.9 % (11.7-14.2); RDW Standard Deviation 54.3 fL (35.1-46.3); Red Blood Cell Count 2.63 M/mm3 (3.80-5.20); White Blood Cell Count 5.77 K/mm3 (4.00-11.30)
--- NOTE | 2019-04-11 05:55 | NUR ---
04/11/19 0545 AWAKENED FOR AM MED. STATES SHE HAS SLEPT WELL TONIGHT. DENIES ANY S/S OR DISCOMFORT AT THIS TIME. VITALS STABLE. HAD ONE BROWN FORMED BM LAST NIGHT.
[2019-04-11 06:04] LABS: Anion Gap 7 mmol/L (6-16); Blood Urea Nitrogen 19 mg/dL (8-24); Bun/Creatinine Ratio 20.5 (12.0-20.0); CO2, Blood 22 mmol/L (21-32); Calcium, Blood 9.3 mg/dL (8.5-10.1); Chloride, Blood 109 mmol/L (98-108); Creatinine, Blood 0.93 mg/dL (0.40-1.00); Glomerular Filtration Rate >60 (60-); Glucose, Blood 88 mg/dL (70-99); Potassium, Blood 3.8 mmol/L (3.5-5.5); Sodium, Blood 138 mmol/L (136-145)
--- NOTE | 2019-04-11 18:47 | NUR ---
SHIFT SUMMARY- PT IS PLESANT AND COOPERATIVE. SHE IS EATING AND DRINKING WELL. WILL DISCHARGE TO [facility] TOMORROW.
--- NOTE | 2019-04-12 01:11 | NUR ---
BEGINNING SHIFT SUMMARY ASUMED CARE OF PT AT 1900. PT IS ALERT AND ORIENTED TO SELF, DATE, AND SIUTATION. PT IS PAINFUL TO TOUCH, SKIN IS FRAGILE AND EDEMATOUS +4. PT IS PAINFUL, MEDICATED PER EMAR. LUNG SOUNDS DIMINISHED, HEART SOUNDS REGULAR, DENIES SOB/CP AT THIS TIME. PT IS INCONTINENT OF BLADDER. PT STATED THAT SHE HAS BEEN FEELING VERY SLEEPY LATELY, CALL LIGHT IN REACH, BED IN LOWEST POSTION, BED ALARM ON, WILL CONTINUE TO MONITOR.
--- NOTE | 2019-04-12 04:58 | NUR ---
END SHIFT SUMMARY NO ACUTE CHANGES NOTED T/O THE NIGHT. PT WAS INCONTINENT DURING THE NIGHT. PT HAD A COUGH DURING THE NIGHT. PT IS EXPECTED TO GO TO A CORRECTION CARE FACILITY TODAY. CALL LIGHT IN REACH, BED IN LOWEST POSTION, BED ALARM ON, WILL CONTINUE TO MONITOR UNTIL DAYSHIFT NURSE ARRIVES.
[2019-04-12 05:51] LABS: BASOPHILS ABSOLUTE AUTO 0.04 K/mm3 (0.00-0.23); BASOPHILS PERCENT AUTO 1 % (0-2); EOSINOPHILS ABSOLUTE AUTO 0.18 K/mm3 (0.00-0.68); EOSINOPHILS PERCENT AUTO 4 % (0-6); Hematocrit 25.3 % (33.0-51.0); Hemoglobin 8.2 g/dL (11.5-16.0); IMMATURE GRAN ABSOLUTE AUTO 0.09 K/mm3 (0.00-0.10); IMMATURE GRAN PERCENT AUTO 2 % (0-1); LYMPHOCYTES ABSOLUTE AUTO 0.83 K/mm3 (0.84-5.20); LYMPHOCYTES PERCENT AUTO 17 % (21-46); MONOCYTES ABSOLUTE AUTO 0.67 K/mm3 (0.16-1.47); MONOCYTES PERCENT AUTO 14 % (4-13); Mean Corpuscular HGB 31.1 pg (26.0-34.0); Mean Corpuscular HGB Conc 32.4 g/dL (31.5-36.5); Mean Corpuscular Volume 96 fL (80-100); Mean Platelet Volume 9.3 fL (9.1-12.4); NEUTROPHILS ABSOLUTE AUTO 2.99 K/mm3 (1.96-9.15); NEUTROPHILS PERCENT AUTO 62 % (41-73); Platelet Count 152 K/mm3 (150-400); RDW Coefficient Variation 16.1 % (11.7-14.2); RDW Standard Deviation 55.7 fL (35.1-46.3); Red Blood Cell Count 2.64 M/mm3 (3.80-5.20)
[2019-04-12] MEDS ORDERED: SPIR25 PO (13:08)
[2019-04-12] MEDS ORDERED: PANT40 PO (13:08)
[2019-04-12] MEDS ORDERED: FERSU300 PO (13:09)
[2019-04-12] MEDS ORDERED: SUCR1 (13:09)
[2019-04-12 15:06] LABS: Source, Urine Catheter
[2019-04-12 15:11] LABS: Bilirubin, Urine Neg (Neg); Blood, Urine 2+ (Neg); Glucose Qualitative, Urine Neg (Neg); Ketones, Urine 1+ (Neg); Leukocyte Esterase, Urine Neg (Neg); Nitrite, Urine Neg (Neg); Protein, Urine 1+ (Neg); Urobilinogen, Urine NORM (Normal)
[2019-04-12 15:18] LABS: Appearance, Urine Clear (Clear); Color, Urine Yellow (P-Yellow)
[2019-04-12 15:19] LABS: Bacteria Few /hpf; Squamous Epithelial Cells Few /hpf (Few); White Blood Cells, Urine 0-2 /hpf (0-5)
[2019-04-12 16:01] LABS: PCO2 Arterial 32.9 mmHg (35-45); PO2 Arterial 54.5 mmHg (80-100); pH Blood Arterial 7.45 (7.35-7.45)
[2019-04-12 17:39] LABS: Adenovirus Not Detected (NOT DETECT); Coronavirus 229E Not Detected (NOT DETECT); Coronavirus HKU1 Detected (NOT DETECT); Coronavirus NL63 Not Detected (NOT DETECT); Coronavirus OC43 Not Detected (NOT DETECT); Human Metapneumovirus Not Detected (NOT DETECT); Human Rhinovirus/Enterovirus Not Detected (NOT DETECT); Influenza A Not Detected (NOT DETECT); Influenza A/2009-H1 Detected (NOT DETECT); Influenza A/H1 Not Detected (NOT DETECT); Influenza A/H3 Not Detected (NOT DETECT); Influenza B Not Detected (NOT DETECT); Parainfluenza Virus 1 Not Detected (NOT DETECT)
[2019-04-12 17:40] LABS: Bordetella pertussis Not Detected (NOT DETECT); Chlamydophila pneumoniae Not Detected (NOT DETECT); Mycoplasma pneumoniae Not Detected (NOT DETECT); Parainfluenza Virus 2 Not Detected (NOT DETECT); Parainfluenza Virus 3 Not Detected (NOT DETECT); Parainfluenza Virus 4 Not Detected (NOT DETECT); Respiratory Syncytial Virus Not Detected (NOT DETECT)
--- NOTE | 2019-04-12 18:34 | NUR ---
SHIFT SUMMARY PT HAS BEEN DROWSY SINCE CARE WAS ASSUMED. FAMILY HAS BEEN PRESENT AND CONCERNED ABOUT PATIENTS DROWSINESS. CHEST XRAY DONE, ABG AND PCR COMPLETE. LASIX GIVEN. PT IS MILDLY CONFUSED. VSS. WILL MONITOR UNTIL REPORT TO ONCOMING RN
--- NOTE | 2019-04-12 23:22 | NUR ---
BEGINNING SHIFT SUMMARY ASSUMED CARE OT PT AT 1900. PT IS LYING IN BED SLEEPING. PT IS ALERT AND ORIENTED TO SELF AND SURROUNDINGS. PT TESTED POSITIVE TO INFLUENZA A AND CORONAVIRUS, TAMIFLU STARTED AND PT PUT ON ISOLATION PRECAUTIONS. PT C/O COUGH, ON 2L O2 DUE TO COUGHING, FINE CRACKLES T/O LUNG FEILDS, DENIES SOB AT THIS TIME. HEART SOUNDS IRREGULAR, BLE HAVE +4 PITTING EDEMA, SCDS IN PLACE. PT HAS BEEN INCONTINET T/O THE NIGHT. CALL LIGHT IN REACH, BED IN LOWEST POSTION, WILL CONTINUE TO MONITOR.
--- NOTE | 2019-04-13 01:21 | NUR ---
HOSPITALIST CALL PT BEGAN TO COUGH WHEN SHE WAS HAVING HER ATTENDS CHANGED. PT COUGHED TO HARD THAT SHE STARTED TO VOMIT, UNCLEAR IF THE SECRETIONS ARE FROM HER LUNGS OR HER STOMACH. HOSPITALIST NOTIFIED, MEDICATIONS ORDERED. PT STOPPED COUGHING AND IS NOW SLEEPING, MEDICATIONS WERE REFUSED BECAUSE PT STATES THAT SHE DOESNT FEEL BAD ANYMORE BUT WILL USE THEM NEXT TIME. CALL LIGHT IN REACH, BED IN LOWEST POSTION, WILL CONTINUE TO MONITOR.
--- NOTE | 2019-04-13 02:41 | NUR ---
FLU POSITIVE PT TESTED POSITVE FOR INFLUENZA A AND CORONAVIRUS. PT DENIES BEING OUT OF THE [place] IN THE PAST 14 DAYS AND DENIES KNOWING ANY FAMILY MEMBERS WHO HAVE TRAVELED OUTSIDE OF THE [place] EITHER.
--- NOTE | 2019-04-13 04:23 | NUR ---
END SHIFT SUMMARY PT HAS HAD NO FURTHER EPISODES OF N/V. PT HAS STILL HAD A COUGH DURING THE NIGHT. PT SLEPT MOST OF THE NIGHT. PT HAD TIMES OF CONFUSION ABOUT HOW LONG SHE HAS BEEN HERE AND WHY SHE WAS HERE BEFORE. CALL LIGHT IN REACH, BED IN LOWEST POSTION, WILL CONTINUE TO MONITR UNTIL DAYSHIFT NURSE ARRIVES.
[2019-04-13 05:21] LABS: BASOPHILS ABSOLUTE AUTO 0.02 K/mm3 (0.00-0.23); BASOPHILS PERCENT AUTO 1 % (0-2); EOSINOPHILS ABSOLUTE AUTO 0.11 K/mm3 (0.00-0.68); EOSINOPHILS PERCENT AUTO 3 % (0-6); Hematocrit 26.2 % (33.0-51.0); Hemoglobin 8.3 g/dL (11.5-16.0); IMMATURE GRAN ABSOLUTE AUTO 0.08 K/mm3 (0.00-0.10); IMMATURE GRAN PERCENT AUTO 2 % (0-1); LYMPHOCYTES PERCENT AUTO 17 % (21-46); MONOCYTES PERCENT AUTO 14 % (4-13); Mean Corpuscular HGB 30.5 pg (26.0-34.0); Mean Corpuscular HGB Conc 31.7 g/dL (31.5-36.5); Mean Corpuscular Volume 96 fL (80-100); Mean Platelet Volume 9.4 fL (9.1-12.4); NEUTROPHILS ABSOLUTE AUTO 2.65 K/mm3 (1.96-9.15); NEUTROPHILS PERCENT AUTO 64 % (41-73); Platelet Count 140 K/mm3 (150-400); RDW Coefficient Variation 16.5 % (11.7-14.2); RDW Standard Deviation 57.1 fL (35.1-46.3); Red Blood Cell Count 2.72 M/mm3 (3.80-5.20); White Blood Cell Count 4.16 K/mm3 (4.00-11.30)
--- NOTE | 2019-04-13 18:23 | NUR ---
PT SLEEPY AND LETHARGIC THIS AM. PT MUCH MORE ALERT AND ACTIVE THIS AFTERNOON. PT WORKED WITH PT AND OT THIS AM. PT UP TO CHAIR FOR LUNCH AND DINNER. PT HAS HAD FAMILY MEMBERS VISITING MULTIPLE TIMES DURING THIS SHIFT. PT UP IN CHAIR EATING DINNER, NO ADDITIONAL NEEDS AT THIS TIME, CALL LIGHT IN REACH.
--- NOTE | 2019-04-14 04:54 | NUR ---
SHIFT SUMMARY PT HAD NO NEW ISSUES NOTED. PT HAS SLEPT T/O SHIFT. PT CONTINUES TO HAVE A PERSISTANT COUGH AND TX PER EMAR. PT CURRENTLY SLEEPING AND BREATHING EASY. CALL LIGHT IN REACH.
[2019-04-14 05:02] LABS: BASOPHILS ABSOLUTE AUTO 0.03 K/mm3 (0.00-0.23); BASOPHILS PERCENT AUTO 1 % (0-2); EOSINOPHILS PERCENT AUTO 5 % (0-6); Hematocrit 25.8 % (33.0-51.0); Hemoglobin 8.1 g/dL (11.5-16.0); IMMATURE GRAN ABSOLUTE AUTO 0.05 K/mm3 (0.00-0.10); IMMATURE GRAN PERCENT AUTO 1 % (0-1); LYMPHOCYTES ABSOLUTE AUTO 1.17 K/mm3 (0.84-5.20); LYMPHOCYTES PERCENT AUTO 31 % (21-46); MONOCYTES ABSOLUTE AUTO 0.54 K/mm3 (0.16-1.47); MONOCYTES PERCENT AUTO 14 % (4-13); Mean Corpuscular HGB 30.3 pg (26.0-34.0); Mean Corpuscular HGB Conc 31.4 g/dL (31.5-36.5); Mean Corpuscular Volume 97 fL (80-100); Mean Platelet Volume 9.4 fL (9.1-12.4); NEUTROPHILS PERCENT AUTO 48 % (41-73); Platelet Count 121 K/mm3 (150-400); RDW Coefficient Variation 16.4 % (11.7-14.2); RDW Standard Deviation 57.8 fL (35.1-46.3); Red Blood Cell Count 2.67 M/mm3 (3.80-5.20); White Blood Cell Count 3.79 K/mm3 (4.00-11.30)
[2019-04-14 05:39] LABS: Anion Gap 5 mmol/L (6-16); Blood Urea Nitrogen 18 mg/dL (8-24); Bun/Creatinine Ratio 19.4 (12.0-20.0); CO2, Blood 23 mmol/L (21-32); Calcium, Blood 8.6 mg/dL (8.5-10.1); Chloride, Blood 112 mmol/L (98-108); Creatinine, Blood 0.93 mg/dL (0.40-1.00); Glomerular Filtration Rate >60 (60-); Glucose, Blood 86 mg/dL (70-99); Potassium, Blood 4.1 mmol/L (3.5-5.5); Sodium, Blood 140 mmol/L (136-145)
--- NOTE | 2019-04-14 18:26 | NUR ---
PT ALERT THROUGH MOST OF THIS SHIFT. PT CONTINUES TO BE FORGETFUL. PT'S DAUGHTER IN THE ROOM MULTIPLE TIMES DURING THIS SHIFT. PT UP TO CHAIR FOR BREAKFAST AND LUNCH. PT EATING INDEPENDENTLY AND COOPERATIVE WITH CARE. PT CURRENTLY SITTING UP IN BED EATING DINNER.
--- NOTE | 2019-04-14 20:24 | NUR ---
BOWEL CARE: NO BM SINCE 04/11/19, BETHANY STEVENSON IS NOTIFIED AND AN ORDER FOR BOWEL CARE PROTOCOL WAS OBTAINED.
[2019-04-15 05:41] LABS: Anion Gap 6 mmol/L (6-16); Blood Urea Nitrogen 16 mg/dL (8-24); Bun/Creatinine Ratio 17.4 (12.0-20.0); CO2, Blood 22 mmol/L (21-32); Calcium, Blood 8.3 mg/dL (8.5-10.1); Chloride, Blood 112 mmol/L (98-108); Creatinine, Blood 0.92 mg/dL (0.40-1.00); Glomerular Filtration Rate >60 (60-); Glucose, Blood 87 mg/dL (70-99); Sodium, Blood 140 mmol/L (136-145)
--- NOTE | 2019-04-15 07:39 | NUR ---
SHIFT SUMMARY: PATIENT IS A&OX3, NO COMPLAINTS OF PAIN.PATIENT IS INCONTINENT OF URINE. PATIENT IS REFUSING TO GET OUT TO THE BSC TO VOID, "I FEEL TO WEAK". EDUCATION IS GIVED ON THE IMPORTANCE OF MOBILITY AND THE HEALING PROCESS. PATIENT HAS NOT HAD A BM SINCE 04/11. BOWEL CARE ORDERS WERE OBTAINED AND COLACE AND SENNA WERE GIVEN, AWAITING RESULT.
--- NOTE | 2019-04-15 11:16 | NUR ---
PT TRIALING RA. PT TRIALING RA AT THIS TIME. SATING AT 96%. WILL CONTINUE TO MONITOR.
--- NOTE | 2019-04-15 16:46 | NUR ---
SHIFT SUMMARY PT SATING IN THE ON RA. DENIES SOB. PT CONT/INCONT THIS SHIFT. 2 BMS THIS SHIFT. PT DENIES PAIN EXCEPT WHEN SKIN IS TOUCHED TOO ROUGHLY. NO OTHER CHANGES IN ASSESSMENT AT THIS TIME. VSS. PT GIVEN EXTRA OT LASIX DOSE TO ASSIST WITH SWELLING. PT UP TO CHAIR FOR MEALS THIS SHIFT. TOLERATING WELL. 1-2P ASSIST. PT SCARED OF FALLING INCREASING HER RELUCTANCE TO GET OUT OF BED. PT AGREES HOWEVER WITH ENCOURAGMENT. WILL CONTINUE TO MONITOR UNTIL TURNOVER IS COMPLETE.
[2019-04-16 05:35] LABS: BASOPHILS ABSOLUTE AUTO 0.03 K/mm3 (0.00-0.23); BASOPHILS PERCENT AUTO 1 % (0-2); EOSINOPHILS ABSOLUTE AUTO 0.23 K/mm3 (0.00-0.68); EOSINOPHILS PERCENT AUTO 6 % (0-6); Hematocrit 27.2 % (33.0-51.0); Hemoglobin 8.5 g/dL (11.5-16.0); IMMATURE GRAN ABSOLUTE AUTO 0.03 K/mm3 (0.00-0.10); IMMATURE GRAN PERCENT AUTO 1 % (0-1); LYMPHOCYTES ABSOLUTE AUTO 1.66 K/mm3 (0.84-5.20); LYMPHOCYTES PERCENT AUTO 41 % (21-46); MONOCYTES ABSOLUTE AUTO 0.43 K/mm3 (0.16-1.47); MONOCYTES PERCENT AUTO 11 % (4-13); Mean Corpuscular HGB 29.8 pg (26.0-34.0); Mean Corpuscular HGB Conc 31.3 g/dL (31.5-36.5); Mean Corpuscular Volume 95 fL (80-100); Mean Platelet Volume 9.5 fL (9.1-12.4); NEUTROPHILS ABSOLUTE AUTO 1.67 K/mm3 (1.96-9.15); NEUTROPHILS PERCENT AUTO 41 % (41-73); Platelet Count 115 K/mm3 (150-400); RDW Coefficient Variation 16.1 % (11.7-14.2); RDW Standard Deviation 56.6 fL (35.1-46.3); Red Blood Cell Count 2.85 M/mm3 (3.80-5.20); White Blood Cell Count 4.05 K/mm3 (4.00-11.30)
[2019-04-16 06:02] LABS: Anion Gap 6 mmol/L (6-16); Blood Urea Nitrogen 14 mg/dL (8-24); Bun/Creatinine Ratio 18.1 (12.0-20.0); CO2, Blood 24 mmol/L (21-32); Calcium, Blood 8.4 mg/dL (8.5-10.1); Chloride, Blood 112 mmol/L (98-108); Creatinine, Blood 0.77 mg/dL (0.40-1.00); Glomerular Filtration Rate >60 (60-); Glucose, Blood 81 mg/dL (70-99); Potassium, Blood 3.8 mmol/L (3.5-5.5); Sodium, Blood 142 mmol/L (136-145)
--- NOTE | 2019-04-16 08:28 | NUR ---
SHIFT SUMMARY: PATIENT IS A&OX4, VS ARE STABLE, NO COMPLAUINTS OF PAIN. WAS CONTINENT WHEN UP IN CHAIR BUT INC. THROUGHT THE NIGHT. STRESS INC. IS ALSO PRESENT WITH COUGH WHICH IS LOOSE AND PRODUCTIVE OF A YELLOW SPUTUM. PATIENT REMAINS IN DROPLET/CONTACT PRECATIONS FOR THE FLU.
--- NOTE | 2019-04-16 16:41 | NUR ---
SHIFT SUMMARY- PT IS A/O, PLESANT AND COOPERATIVE. SHE HAS SOME INTERMITENT CONFUSION. PT DAUGHTER AND GRANDDAUGHTER AT BEDSIDE THIS AFTERNOON. PT EATING AND DRINKING WELL. PT HAS INTERMITENT COUGH AND SOME RELATED BACK PAIN, DECLINED PAIN MEDICATION. PT SLEEPING FREQUENTLY THROUGOUT THIS SHIFT. PT HAD AND INCOTINENT VOID THIS MORNING. CHANGED HER BEDDING. PT UP TO THE CHAIR FOR MEALS.
--- NOTE | 2019-04-17 03:42 | NUR ---
SHIFT SUMMARY: PATIENT INTERMITTENT CONFUSION, VSS. BED LOW AND LOCKED WITH EXIT ALARM ON. NO ISSUES NOTED THIS SHIFT.
--- NOTE | 2019-04-17 16:22 | NUR ---
REVIEW D'C W/PATIENT. AWARE MEDS AT [facility]. AWARE [facility] WILL CALL W/F/U. AWAITING RIDE. ANSWER ALL QUESTIONS.
== END 2019-04-17 17:14 | disposition home health service (06) | DRG 380 ==
LOC: ER 16:29 → MEDS 19:39
PROVIDERS: Emergency Medicine; Family Medicine; Internal Medicine; Internal Medicine Endocrinology, Diabetes & Metabolism; Internal Medicine Gastroenterology; ADMIT Internal Medicine
PROC: 0W3P8ZZ Control Bleeding in Gastrointestinal Tract, Via Natural or Artificial Opening Endoscopic (ICD-10-PCS; principal; 2019-04-07 10:15)
PROC: 0DB58ZX Excision of Esophagus, Via Natural or Artificial Opening Endoscopic, Diagnostic (ICD-10-PCS; 2019-04-07 10:15)
DX: K22.11 Ulcer of esophagus with bleeding (principal); J09.X1 Influenza due to identified novel influenza A virus with pneumonia; N39.0 Urinary tract infection, site not specified; F33.40 Major depressive disorder, recurrent, in remission, unspecified; K31.811 Angiodysplasia of stomach and duodenum with bleeding; K74.60 Unspecified cirrhosis of liver; E78.5 Hyperlipidemia, unspecified; I10 Essential (primary) hypertension; Z79.82 Long term (current) use of aspirin; E87.6 Hypokalemia
CPT/HCPCS: 0099U; 36415; 36600; 70450; 71046; 76705; 80048; 80053; 81001; 82105; 82140; 82272; 82550; 82728; 82803; 82947; 83540; 83550; 83880; 84443; 84484; 85014; 85018; 85025; 85027; 85045; 85610; 86850; 86900; 86901; 86923; 88305; 88312; 88342; 93005; 93010; 94640; 94667; 94760; 97110; 97116; 97161; 97166; 97530; 97535; 99285-25; A9270; C9113; G0480; J0696; J1940; J1956; J2405; J2704; J2916; J3480; J7030; J7040; J7050; J7120; P9016; P9046

== ENCOUNTER → 2019-05-09 | Outpatient (CLI) | payer OTHER ==
[~2019-05-09] MED LIST changes: +ALBU90OI INH; +FERSU300 PO; +LACT10SY PO; +PANT40 PO; +POTCHL20ER PO; +RIFA550T2 PO; +SPIR25 PO; +SUCR1; +THERA-D2000 UNIT PO
[2019-05-09 15:16] LABS: BASOPHILS ABSOLUTE AUTO 0.03 K/mm3 (0.00-0.23); BASOPHILS PERCENT AUTO 1 % (0-2); EOSINOPHILS ABSOLUTE AUTO 0.31 K/mm3 (0.00-0.68); EOSINOPHILS PERCENT AUTO 6 % (0-6); Hemoglobin 10.8 g/dL (11.5-16.0); IMMATURE GRAN ABSOLUTE AUTO 0.02 K/mm3 (0.00-0.10); IMMATURE GRAN PERCENT AUTO 0 % (0-1); LYMPHOCYTES ABSOLUTE AUTO 1.17 K/mm3 (0.84-5.20); LYMPHOCYTES PERCENT AUTO 21 % (21-46); MONOCYTES ABSOLUTE AUTO 0.49 K/mm3 (0.16-1.47); MONOCYTES PERCENT AUTO 9 % (4-13); Mean Corpuscular HGB 30.4 pg (26.0-34.0); Mean Corpuscular HGB Conc 31.8 g/dL (31.5-36.5); Mean Corpuscular Volume 96 fL (80-100); Mean Platelet Volume 10.7 fL (9.1-12.4); NEUTROPHILS ABSOLUTE AUTO 3.59 K/mm3 (1.96-9.15); NEUTROPHILS PERCENT AUTO 64 % (41-73); Platelet Count 119 K/mm3 (150-400); RDW Standard Deviation 59.8 fL (35.1-46.3); Red Blood Cell Count 3.55 M/mm3 (3.80-5.20); White Blood Cell Count 5.61 K/mm3 (4.00-11.30)
[2019-05-09 15:43] LABS: Alanine Aminotransfer (ALT/SGP 25 U/L (12-78); Albumin, Blood 2.9 g/dL (3.4-5.0); Albumin/Globulin Ratio 0.8 (0.8-1.8); Alk Phos 91 U/L (50-136); Anion Gap 5 mmol/L (6-16); Aspartate Aminotrans (AST/SGOT 40 U/L (12-37); Blood Urea Nitrogen 23 mg/dL (8-24); Bun/Creatinine Ratio 25.9 (12.0-20.0); CO2, Blood 25 mmol/L (21-32); Calcium, Blood 9.5 mg/dL (8.5-10.1); Chloride, Blood 108 mmol/L (98-108); Creatinine, Blood 0.89 mg/dL (0.40-1.00); Globulin, Blood 3.7 g/dL (2.2-4.0); Glomerular Filtration Rate >60 (60-); Glucose, Blood 117 mg/dL (70-99); Potassium, Blood 3.3 mmol/L (3.5-5.5); Sodium, Blood 138 mmol/L (136-145); Total Protein, Blood 6.6 g/dL (6.4-8.2)
== END ==
LOC: LAB 15:07 → LAB SHORT 15:07
PROVIDERS: Family Medicine
DX: R79.89 Other specified abnormal findings of blood chemistry (principal); R68.89 Other general symptoms and signs; R94.6 Abnormal results of thyroid function studies
CPT/HCPCS: 80053; 84443; 85025

== ENCOUNTER 2019-05-14 22:02 | Observation (INO) | payer OTHER ==
[~2019-05-14] VITALS: Ht 167.6 cm; Wt 61.5 kg
[~2019-05-14 22:02] MED LIST changes: -LACT10SY PO; -POTCHL20ER PO; -RIFA550T2 PO
[2019-05-14 22:45] LABS: BASOPHILS ABSOLUTE AUTO 0.04 K/mm3 (0.00-0.23); BASOPHILS PERCENT AUTO 1 % (0-2); EOSINOPHILS ABSOLUTE AUTO 0.27 K/mm3 (0.00-0.68); EOSINOPHILS PERCENT AUTO 4 % (0-6); Hematocrit 36.3 % (33.0-51.0); Hemoglobin 11.6 g/dL (11.5-16.0); IMMATURE GRAN ABSOLUTE AUTO 0.01 K/mm3 (0.00-0.10); IMMATURE GRAN PERCENT AUTO 0 % (0-1); LYMPHOCYTES PERCENT AUTO 32 % (21-46); MONOCYTES ABSOLUTE AUTO 0.63 K/mm3 (0.16-1.47); MONOCYTES PERCENT AUTO 10 % (4-13); Mean Corpuscular HGB 30.2 pg (26.0-34.0); Mean Corpuscular Volume 95 fL (80-100); Mean Platelet Volume 10.7 fL (9.1-12.4); NEUTROPHILS ABSOLUTE AUTO 3.23 K/mm3 (1.96-9.15); NEUTROPHILS PERCENT AUTO 52 % (41-73); Platelet Count 134 K/mm3 (150-400); RDW Coefficient Variation 16.4 % (11.7-14.2); RDW Standard Deviation 57.3 fL (35.1-46.3); Red Blood Cell Count 3.84 M/mm3 (3.80-5.20); White Blood Cell Count 6.18 K/mm3 (4.00-11.30)
[2019-05-14 23:03] LABS: Albumin, Blood 3.1 g/dL (3.4-5.0); Albumin/Globulin Ratio 0.8 (0.8-1.8); Bilirubin, Total 3.5 mg/dL (0.1-1.0); Bun/Creatinine Ratio 28.2 (12.0-20.0); Calcium, Blood 9.9 mg/dL (8.5-10.1); Creatinine, Blood 1.17 mg/dL (0.40-1.00); Potassium, Blood 3.9 mmol/L (3.5-5.5); Total Protein, Blood 7.1 g/dL (6.4-8.2)
[2019-05-15] MEDS ORDERED: BREO ELLIPTA 21 EACH INH (01:49)
[2019-05-15] MEDS ORDERED: POTCHL20ER PO (01:52)
--- NOTE | 2019-05-15 01:57 | NUR ---
ADMISSION: PATIENT IS RECIEVED FROM ER, NO COMPLIANTS OF PAIN OR NAUSEA. PATIENT IS PLESANTLY CONFUSED, OREINTED TO SELF, FAMILY AND PLACE. PATIENT AND DAUGHTER ARE ORIENTED TO ROOM AND CALL HUITRON. BED ALARM IS ON FOR SAFETY. MEDICATIONS AND HEALTH HISTORY ARE REVIEWED WITH DAUGHTER MAC DUE TO CONFUSION.
[2019-05-15 05:47] LABS: BASOPHILS ABSOLUTE AUTO 0.02 K/mm3 (0.00-0.23); BASOPHILS PERCENT AUTO 1 % (0-2); EOSINOPHILS ABSOLUTE AUTO 0.17 K/mm3 (0.00-0.68); EOSINOPHILS PERCENT AUTO 4 % (0-6); Hematocrit 28.7 % (33.0-51.0); Hemoglobin 9.2 g/dL (11.5-16.0); IMMATURE GRAN ABSOLUTE AUTO 0.02 K/mm3 (0.00-0.10); IMMATURE GRAN PERCENT AUTO 1 % (0-1); LYMPHOCYTES ABSOLUTE AUTO 1.45 K/mm3 (0.84-5.20); LYMPHOCYTES PERCENT AUTO 34 % (21-46); MONOCYTES ABSOLUTE AUTO 0.43 K/mm3 (0.16-1.47); MONOCYTES PERCENT AUTO 10 % (4-13); Mean Corpuscular HGB 30.1 pg (26.0-34.0); Mean Corpuscular HGB Conc 32.1 g/dL (31.5-36.5); Mean Corpuscular Volume 94 fL (80-100); Mean Platelet Volume 10.8 fL (9.1-12.4); NEUTROPHILS ABSOLUTE AUTO 2.21 K/mm3 (1.96-9.15); NEUTROPHILS PERCENT AUTO 51 % (41-73); Platelet Count 86 K/mm3 (150-400); RDW Coefficient Variation 16.3 % (11.7-14.2); RDW Standard Deviation 56.3 fL (35.1-46.3); Red Blood Cell Count 3.06 M/mm3 (3.80-5.20)
[2019-05-15 06:08] LABS: Albumin, Blood 2.4 g/dL (3.4-5.0); Albumin/Globulin Ratio 0.8 (0.8-1.8); Bilirubin, Total 2.8 mg/dL (0.1-1.0); Bun/Creatinine Ratio 28.8 (12.0-20.0); Calcium, Blood 8.9 mg/dL (8.5-10.1); Creatinine, Blood 1.11 mg/dL (0.40-1.00); Potassium, Blood 3.7 mmol/L (3.5-5.5); Total Protein, Blood 5.4 g/dL (6.4-8.2)
[2019-05-15 06:56] LABS: Source, Urine Clean Catch
[2019-05-15 06:58] LABS: Bilirubin, Urine Neg (Neg); Blood, Urine Neg (Neg); Glucose Qualitative, Urine Neg (Neg); Ketones, Urine Neg (Neg); Leukocyte Esterase, Urine Neg (Neg); Nitrite, Urine Neg (Neg); Protein, Urine Neg (Neg); Specific Gravity, Urine 1.015 (1.003-1.022); Urobilinogen, Urine 2+ (Normal)
[2019-05-15 07:16] LABS: Appearance, Urine Clear (Clear); Color, Urine Yellow (P-Yellow)
--- NOTE | 2019-05-15 14:30 | NUR ---
SHIFT SUMMARY PT AWAKE AT START OF SHIFT. VERY PLEASANT AND CO-OP WITH CARE. PER REPORT, PT HAD BEEN INDEPENDENT, BUT NOW NEEDING MORE CARE. 1P ASSIST TO BSC. AMONIA LEVEL DECREASED TODAY; SEE CHART. NO BM TO PRESENT THOUGH. LACTULOSE GIVEN PER EMAR; STILL INEFFECTIVE. HX OF LIVER CIRRHOSIS WITH JAUNDICE TO EYES AND SKIN. PER REPORT, PT WAS LIVING ALONE, BUT NOW NEEDING MORE CARE. POSSIBLE D/C TO SNF WHEN AVAILABLE. FAMILY IN TO SEE PT FOR A WHILE. PT RESTING QUIETLY AT THIS TIME. BED ALARM ON FOR SAFETY. CALL LT IN REACH.
--- NOTE | 2019-05-15 14:48 | NUR ---
SPOKE WITH PT ON 05/15/2019 TO REQUEST TO HELP WITH HER CARE TOMORROW, 05/16/2019 FROM [id number]. PT AGREED.
[2019-05-16 05:00] LABS: BASOPHILS ABSOLUTE AUTO 0.03 K/mm3 (0.00-0.23); BASOPHILS PERCENT AUTO 1 % (0-2); EOSINOPHILS ABSOLUTE AUTO 0.19 K/mm3 (0.00-0.68); EOSINOPHILS PERCENT AUTO 4 % (0-6); Hemoglobin 9.4 g/dL (11.5-16.0); IMMATURE GRAN PERCENT AUTO 0 % (0-1); LYMPHOCYTES ABSOLUTE AUTO 1.75 K/mm3 (0.84-5.20); LYMPHOCYTES PERCENT AUTO 39 % (21-46); MONOCYTES ABSOLUTE AUTO 0.52 K/mm3 (0.16-1.47); MONOCYTES PERCENT AUTO 12 % (4-13); Mean Corpuscular HGB 30.9 pg (26.0-34.0); Mean Corpuscular HGB Conc 32.4 g/dL (31.5-36.5); Mean Corpuscular Volume 95 fL (80-100); Mean Platelet Volume 10.9 fL (9.1-12.4); NEUTROPHILS ABSOLUTE AUTO 1.95 K/mm3 (1.96-9.15); NEUTROPHILS PERCENT AUTO 44 % (41-73); Platelet Count 78 K/mm3 (150-400); RDW Coefficient Variation 16.5 % (11.7-14.2); RDW Standard Deviation 58.2 fL (35.1-46.3); Red Blood Cell Count 3.04 M/mm3 (3.80-5.20); White Blood Cell Count 4.44 K/mm3 (4.00-11.30)
[2019-05-16 05:18] LABS: Albumin, Blood 2.4 g/dL (3.4-5.0); Albumin/Globulin Ratio 0.8 (0.8-1.8); Bilirubin, Total 2.9 mg/dL (0.1-1.0); Bun/Creatinine Ratio 20.7 (12.0-20.0); Calcium, Blood 8.6 mg/dL (8.5-10.1); Creatinine, Blood 1.21 mg/dL (0.40-1.00); Potassium, Blood 3.6 mmol/L (3.5-5.5); Total Protein, Blood 5.4 g/dL (6.4-8.2)
--- NOTE | 2019-05-16 06:19 | NUR ---
74 year olf Female admitted with acute hepatic encephalopathy continues pleasant with mild confusion. She did ask me once to close closed window blinds because someone was peeking in . She is weak has unsteady gait. Up to bedside commode to void no bowel movements. She has extensive bruising bilat upper extremities. 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 , lives alone. DC planning for SNF.
--- NOTE | 2019-05-16 18:20 | NUR ---
SHIFT SUMMARY... NO ACUTE NEGATIVE CHANGES NOTED THIS SHIFT. PT'S VS HAVE BEEN STABLE T/O SHIFT. PT HAS HAD FAMILY AT THE BEDSIDE MOST OF THIS SHIFT. PT DENIES CHEST PAIN/PRESSURE N/V OR SOB. PT HAS BEEN REFUSING LAST DOSE OF LACTULOSE THIS EVENING. PT HAS ONLY HAD 1 SOFT MED BM THIS SHIFT. PT WORKED WITH PT/OT THIS SHIFT WELL. CALL LIGHT IN REACH WILL CONTINUE TO MONITOR UNTIL REPORT IS GIVEN TO ONCOMING RN.
--- NOTE | 2019-05-17 01:54 | NUR ---
74 year old Female with hepatic encephalopathy nonalcoholic liver failure continues to work with PT OT and she is up with 1 assist to bedside commode to void holley urine. No further significant stool this shift. Lives alone in [place], DTR who lives in [place] is supportive but reportedly overwhelmed with caring for ill family and working bacteriologist food. PT with minmal appetite, says she didn't eat dinner and declined HS snack or meal replacement. She is on room air, denies acute pain or SOB. Recent GI bleed per PT report. Scant amt of stool soft brown.
[2019-05-17 05:23] LABS: BASOPHILS ABSOLUTE AUTO 0.02 K/mm3 (0.00-0.23); BASOPHILS PERCENT AUTO 0 % (0-2); EOSINOPHILS ABSOLUTE AUTO 0.25 K/mm3 (0.00-0.68); EOSINOPHILS PERCENT AUTO 5 % (0-6); Hematocrit 29.9 % (33.0-51.0); Hemoglobin 9.6 g/dL (11.5-16.0); IMMATURE GRAN ABSOLUTE AUTO 0.01 K/mm3 (0.00-0.10); IMMATURE GRAN PERCENT AUTO 0 % (0-1); LYMPHOCYTES ABSOLUTE AUTO 1.63 K/mm3 (0.84-5.20); LYMPHOCYTES PERCENT AUTO 35 % (21-46); MONOCYTES ABSOLUTE AUTO 0.47 K/mm3 (0.16-1.47); MONOCYTES PERCENT AUTO 10 % (4-13); Mean Corpuscular HGB 30.6 pg (26.0-34.0); Mean Corpuscular HGB Conc 32.1 g/dL (31.5-36.5); Mean Corpuscular Volume 95 fL (80-100); Mean Platelet Volume 10.8 fL (9.1-12.4); NEUTROPHILS ABSOLUTE AUTO 2.35 K/mm3 (1.96-9.15); NEUTROPHILS PERCENT AUTO 50 % (41-73); Platelet Count 74 K/mm3 (150-400); RDW Coefficient Variation 16.4 % (11.7-14.2); RDW Standard Deviation 57.5 fL (35.1-46.3); Red Blood Cell Count 3.14 M/mm3 (3.80-5.20); White Blood Cell Count 4.73 K/mm3 (4.00-11.30)
[2019-05-17] MEDS ORDERED: RIFA550T2 PO (11:25)
[2019-05-17] MEDS ORDERED: LACT10SY PO (11:25)
--- NOTE | 2019-05-17 13:57 | NUR ---
PTIENT DISCHARGED HOME. MEDICATIONS FAXED TO PHARMACY. ALL IV LINES DISCONTINUED.
== END 2019-05-17 13:33 | disposition home or self-care (01) ==
LOC: ER 22:02 → MEDS 05-15 00:19 → ENPENDDIS 05-17 11:00 → MEDS 05-17 13:33
PROVIDERS: Emergency Medicine; Family Medicine; ADMIT Internal Medicine
DX: K72.00 Acute and subacute hepatic failure without coma (principal); K74.60 Unspecified cirrhosis of liver; K76.6 Portal hypertension; E72.20 Disorder of urea cycle metabolism, unspecified; J45.909 Unspecified asthma, uncomplicated; Z86.73 Personal history of transient ischemic attack (TIA), and cerebral infarction without residual deficits; Z79.899 Other long term (current) drug therapy; Z79.82 Long term (current) use of aspirin
CPT/HCPCS: 36415; 80053; 81003; 82140; 83690; 85025; 96361; 96374; 97116; 97162; 97165; 97535; 99285-25; A9270-GY; G0480; J2405; J7030

== ENCOUNTER → 2019-05-29 | Outpatient (CLI) | payer OTHER ==
[~2019-05-29] MED LIST changes: +LACT10SY PO; +POTCHL20ER PO; +RIFA550T2 PO
== END ==
LOC: LAB SHORT 16:16 → OLS 16:16 → LAB FUT 05-25 15:05
DX: K72.90 Hepatic failure, unspecified without coma (principal); R30.9 Painful micturition, unspecified
CPT/HCPCS: 87086

== ENCOUNTER 2019-06-08 15:49 | Emergency (ER) | payer OTHER ==
[~2019-06-08] VITALS: Ht 157.5 cm; Wt 54.4 kg
[~2019-06-08 15:49] MED LIST changes: +Bumetanide2 MG PO; -THERA-D2000 UNIT PO; +Vitamin D2000 UNIT PO
[2019-06-08 18:21] LABS: BASOPHILS ABSOLUTE AUTO 0.03 K/mm3 (0.00-0.23); BASOPHILS PERCENT AUTO 1 % (0-2); EOSINOPHILS ABSOLUTE AUTO 0.12 K/mm3 (0.00-0.68); EOSINOPHILS PERCENT AUTO 6 % (0-6); Hemoglobin 10.3 g/dL (11.5-16.0); IMMATURE GRAN ABSOLUTE AUTO 0.01 K/mm3 (0.00-0.10); IMMATURE GRAN PERCENT AUTO 1 % (0-1); LYMPHOCYTES ABSOLUTE AUTO 1.18 K/mm3 (0.84-5.20); LYMPHOCYTES PERCENT AUTO 54 % (21-46); MONOCYTES ABSOLUTE AUTO 0.82 K/mm3 (0.16-1.47); MONOCYTES PERCENT AUTO 38 % (4-13); Mean Corpuscular HGB 30.1 pg (26.0-34.0); Mean Corpuscular HGB Conc 33.2 g/dL (31.5-36.5); Mean Platelet Volume 10.5 fL (9.1-12.4); NEUTROPHILS ABSOLUTE AUTO 0.01 K/mm3 (1.96-9.15); NEUTROPHILS PERCENT AUTO 0 % (41-73); Platelet Count 175 K/mm3 (150-400); RDW Coefficient Variation 14.6 % (11.7-14.2); RDW Standard Deviation 48.6 fL (35.1-46.3); Red Blood Cell Count 3.42 M/mm3 (3.80-5.20); White Blood Cell Count 2.17 K/mm3 (4.00-11.30)
[2019-06-08 18:26] LABS: Mean Corpuscular Volume 91 fL (80-100)
[2019-06-08 18:58] LABS: Albumin, Blood 2.5 g/dL (3.4-5.0); Albumin/Globulin Ratio 0.7 (0.8-1.8); Bilirubin, Total 3.8 mg/dL (0.1-1.0); Bun/Creatinine Ratio 22.9 (12.0-20.0); Calcium, Blood 9.1 mg/dL (8.5-10.1); Creatinine, Blood 1.4 mg/dL (0.40-1.00); Globulin, Blood 3.4 g/dL (2.2-4.0); Potassium, Blood 3.7 mmol/L (3.5-5.5); Total Protein, Blood 5.9 g/dL (6.4-8.2)
[2019-06-10] MEDS ORDERED: KEFLEX500 MG PO (16:36)
[2019-06-10] MEDS ORDERED: HYDR1TAB94 PO (16:36)
== END 2019-06-08 19:59 | disposition home or self-care (01) ==
LOC: ER 15:49
PROVIDERS: Emergency Medicine
DX: S09.90XA Unspecified injury of head, initial encounter (principal); M25.512 Pain in left shoulder; M25.522 Pain in left elbow; M25.562 Pain in left knee; E72.20 Disorder of urea cycle metabolism, unspecified; W18.30XA Fall on same level, unspecified, initial encounter
CPT/HCPCS: 70450; 73030; 73562-LT; 80053; 82140; 85025; 99284-25

== ENCOUNTER → 2019-07-05 | Outpatient (CLI) | payer OTHER ==
[~2019-07-05] MED LIST changes: +HYDR1TAB94 PO; +KEFLEX500 MG PO
[2019-07-05 13:54] LABS: Source, Urine Clean Catch
[2019-07-05 15:47] LABS: Bilirubin, Urine Neg (Neg); Blood, Urine 5+ (Neg); Glucose Qualitative, Urine Neg (Neg); Ketones, Urine Neg (Neg); Leukocyte Esterase, Urine 3+ (Neg); Nitrite, Urine Neg (Neg); Protein, Urine 2+ (Neg); Urobilinogen, Urine NORM (Normal)
[2019-07-05 16:03] LABS: Appearance, Urine Cloudy (Clear); Color, Urine Yellow (P-Yellow); White Blood Cells, Urine TNTC /hpf (0-5)
[2019-07-05 16:04] LABS: Bacteria Many /hpf; Squamous Epithelial Cells Few /hpf (Few)
== END | disposition home or self-care (01) ==
LOC: OLS 12:55 → LAB SHORT 12:55
PROVIDERS: Physician Assistant
DX: N17.9 Acute kidney failure, unspecified (principal); N18.9 Chronic kidney disease, unspecified; D63.1 Anemia in chronic kidney disease; R80.0 Isolated proteinuria
CPT/HCPCS: 81001

== ENCOUNTER → 2019-11-09 | Outpatient (CLI) | payer OTHER ==
[~2019-11-09] MED LIST changes: +CONSTULOSE10 GM/15 M PO; +NADO20 PO
[2019-11-09 15:36] LABS: Source, Urine Voided
[2019-11-09 16:53] LABS: Appearance, Urine Clear (Clear); Bilirubin, Urine Neg (Neg); Blood, Urine 1+ (Neg); Color, Urine Yellow (P-Yellow); Glucose Qualitative, Urine Neg (Neg); Ketones, Urine Neg (Neg); Leukocyte Esterase, Urine Neg (Neg); Nitrite, Urine Neg (Neg); Protein, Urine Neg (Neg); Urobilinogen, Urine NORM (Normal)
[2019-11-09 17:20] LABS: Bacteria Mod /hpf; Red Blood Cells, Urine Not Seen /hpf (0-2); Squamous Epithelial Cells Rare /hpf (Few); White Blood Cells, Urine 0-2 /hpf (0-5)
== END ==
LOC: LAB SHORT 10:20 → LAB 10:20
PROVIDERS: Physician Assistant
DX: R30.9 Painful micturition, unspecified (principal)
CPT/HCPCS: 81001; 87086

== ENCOUNTER 2020-01-27 12:49 | Emergency (ER) | payer OTHER ==
[~2020-01-27] VITALS: Ht 160 cm; Wt 61.7 kg
[~2020-01-27 12:49] MED LIST changes: +ALBU90OI; +BREO ELLIPTA 21 EAC1
[2020-01-27 13:36] LABS: Source, Urine Clean Catch
[2020-01-27 13:47] LABS: BASOPHILS ABSOLUTE AUTO 0.03 K/mm3 (0.00-0.23); BASOPHILS PERCENT AUTO 1 % (0-2); EOSINOPHILS ABSOLUTE AUTO 0.08 K/mm3 (0.00-0.68); EOSINOPHILS PERCENT AUTO 2 % (0-6); Hematocrit 31.7 % (33.0-51.0); Hemoglobin 9.9 g/dL (11.5-16.0); IMMATURE GRAN ABSOLUTE AUTO 0.01 K/mm3 (0.00-0.10); IMMATURE GRAN PERCENT AUTO 0 % (0-1); LYMPHOCYTES PERCENT AUTO 19 % (21-46); MONOCYTES ABSOLUTE AUTO 0.45 K/mm3 (0.16-1.47); MONOCYTES PERCENT AUTO 12 % (4-13); Mean Corpuscular HGB 29.4 pg (26.0-34.0); Mean Corpuscular HGB Conc 31.2 g/dL (31.5-36.5); Mean Corpuscular Volume 94 fL (80-100); Mean Platelet Volume 10.6 fL (9.1-12.4); NEUTROPHILS ABSOLUTE AUTO 2.44 K/mm3 (1.96-9.15); NEUTROPHILS PERCENT AUTO 66 % (41-73); Platelet Count 119 K/mm3 (150-400); RDW Coefficient Variation 18.4 % (11.7-14.2); RDW Standard Deviation 63.8 fL (35.1-46.3); Red Blood Cell Count 3.37 M/mm3 (3.80-5.20); White Blood Cell Count 3.71 K/mm3 (4.00-11.30)
[2020-01-27 13:47] LABS: Bilirubin, Urine Neg (Neg); Blood, Urine 2+ (Neg); Glucose Qualitative, Urine Neg (Neg); Ketones, Urine Neg (Neg); Leukocyte Esterase, Urine 1+ (Neg); Nitrite, Urine Neg (Neg); Protein, Urine Neg (Neg); Specific Gravity, Urine 1.015 (1.003-1.022); Urobilinogen, Urine NORM (Normal)
[2020-01-27 13:54] LABS: Appearance, Urine Clear (Clear); Color, Urine Yellow (P-Yellow)
[2020-01-27 13:56] LABS: Amorphous Light (0-Heavy); Bacteria Few /hpf; Red Blood Cells, Urine 0-2 /hpf (0-2); Squamous Epithelial Cells Few /hpf (Few)
[2020-01-27 14:09] LABS: Alanine Aminotransfer (ALT/SGP 19 U/L (12-78); Albumin/Globulin Ratio 0.8 (0.8-1.8); Alk Phos 158 U/L (50-136); Anion Gap 5 mmol/L (6-16); Aspartate Aminotrans (AST/SGOT 46 U/L (12-37); Bilirubin, Total 2.1 mg/dL (0.1-1.0); Blood Urea Nitrogen 35 mg/dL (8-24); CO2, Blood 25 mmol/L (21-32); Calcium, Blood 9.2 mg/dL (8.5-10.1); Chloride, Blood 111 mmol/L (98-108); Creatinine, Blood 1.13 mg/dL (0.40-1.00); Globulin, Blood 3.6 g/dL (2.2-4.0); Glomerular Filtration Rate 50 (60-); Glucose, Blood 90 mg/dL (70-99); Sodium, Blood 141 mmol/L (136-145); Total Protein, Blood 6.6 g/dL (6.4-8.2); Troponin I <0.015 ng/mL (0.000-0.040)
== END 2020-01-27 17:23 | disposition home or self-care (01) ==
LOC: ER 12:49
PROVIDERS: Physician Assistant
DX: R05 Cough (principal); K72.90 Hepatic failure, unspecified without coma; R60.0 Localized edema; I10 Essential (primary) hypertension; Z79.899 Other long term (current) drug therapy; Z88.0 Allergy status to penicillin; Z91.013 Allergy to seafood; Z88.2 Allergy status to sulfonamides; Z88.5 Allergy status to narcotic agent; Z88.1 Allergy status to other antibiotic agents; Z88.8 Allergy status to other drugs, medicaments and biological substances; Z79.51 Long term (current) use of inhaled steroids
CPT/HCPCS: 36415; 71045; 80053; 81001; 82140; 83880; 84484; 85025; 87086; 93005; 93010; 99284-25

== ENCOUNTER 2020-02-19 09:11 | Day surgery (SDC) | payer OTHER ==
[~2020-02-19] VITALS: Ht 160 cm; Wt 61.0 kg
== END 2020-02-19 11:04 | disposition home or self-care (01) ==
LOC: ORSCSDS 09:11
PROVIDERS: Student in an Organized Health Care Education/Training Program
PROC: 0DJ08ZZ Inspection of Upper Intestinal Tract, Via Natural or Artificial Opening Endoscopic (ICD-10-PCS; principal; 2020-02-19 10:15)
DX: K74.60 Unspecified cirrhosis of liver (principal); I85.10 Secondary esophageal varices without bleeding; K76.6 Portal hypertension; K31.89 Other diseases of stomach and duodenum; K31.819 Angiodysplasia of stomach and duodenum without bleeding; K44.9 Diaphragmatic hernia without obstruction or gangrene; K31.7 Polyp of stomach and duodenum; Z13.810 Encounter for screening for upper gastrointestinal disorder; I10 Essential (primary) hypertension; J45.909 Unspecified asthma, uncomplicated; Z86.73 Personal history of transient ischemic attack (TIA), and cerebral infarction without residual deficits; F03.90 Unspecified dementia, unspecified severity, without behavioral disturbance, psychotic disturbance, mood disturbance, and anxiety; Z79.899 Other long term (current) drug therapy
CPT/HCPCS: J2001; J2250; J2704; J7120

== ENCOUNTER 2020-09-11 07:18 | Emergency (ER) | payer OTHER ==
[~2020-09-11] VITALS: Ht 157.5 cm; Wt 63.5 kg
[2020-09-11 07:47] LABS: BASOPHILS ABSOLUTE AUTO 0.02 K/mm3 (0.00-0.23); BASOPHILS PERCENT AUTO 0 % (0-2); EOSINOPHILS ABSOLUTE AUTO 0.07 K/mm3 (0.00-0.68); EOSINOPHILS PERCENT AUTO 1 % (0-6); Hematocrit 32.9 % (33.0-51.0); Hemoglobin 9.6 g/dL (11.5-16.0); IMMATURE GRAN ABSOLUTE AUTO 0.02 K/mm3 (0.00-0.10); IMMATURE GRAN PERCENT AUTO 0 % (0-1); LYMPHOCYTES ABSOLUTE AUTO 0.21 K/mm3 (0.84-5.20); LYMPHOCYTES PERCENT AUTO 3 % (21-46); MONOCYTES ABSOLUTE AUTO 0.33 K/mm3 (0.16-1.47); MONOCYTES PERCENT AUTO 5 % (4-13); Mean Corpuscular HGB 26.4 pg (26.0-34.0); Mean Corpuscular HGB Conc 29.2 g/dL (31.5-36.5); Mean Corpuscular Volume 91 fL (80-100); Mean Platelet Volume 10.8 fL (9.1-12.4); NEUTROPHILS ABSOLUTE AUTO 5.77 K/mm3 (1.96-9.15); NEUTROPHILS PERCENT AUTO 90 % (41-73); Platelet Count 139 K/mm3 (150-400); RDW Coefficient Variation 17.6 % (11.7-14.2); RDW Standard Deviation 58.4 fL (35.1-46.3); Red Blood Cell Count 3.63 M/mm3 (3.80-5.20); White Blood Cell Count 6.42 K/mm3 (4.00-11.30)
[2020-09-11 07:56] LABS: Albumin, Blood 3.1 g/dL (3.4-5.0); Albumin/Globulin Ratio 0.8 (0.8-1.8); Bilirubin, Total 1.6 mg/dL (0.1-1.0); Bun/Creatinine Ratio 36.1 (12.0-20.0); Calcium, Blood 8.8 mg/dL (8.5-10.1); Creatinine, Blood 1.08 mg/dL (0.40-1.00); Globulin, Blood 3.7 g/dL (2.2-4.0); Potassium, Blood 4.4 mmol/L (3.5-5.5); Total Protein, Blood 6.8 g/dL (6.4-8.2)
[2020-09-11 10:31] LABS: Source, Urine Clean Catch
[2020-09-11 10:40] LABS: Appearance, Urine Clear (Clear); Bilirubin, Urine Neg (Neg); Blood, Urine 5+ (Neg); Color, Urine Yellow (P-Yellow); Glucose Qualitative, Urine Neg (Neg); Ketones, Urine Neg (Neg); Leukocyte Esterase, Urine 1+ (Neg); Nitrite, Urine Neg (Neg); Protein, Urine 1+ (Neg); Urobilinogen, Urine NORM (Normal)
[2020-09-11 11:00] LABS: Red Blood Cells, Urine 25-50 /hpf (0-2)
[2020-09-11 11:01] LABS: Amorphous Mod (0-Heavy); Bacteria Not Seen /hpf; Squamous Epithelial Cells Few /hpf (Few)
[2020-09-11] MEDS ORDERED: ONDA4ODT MM (11:24)
[2020-09-12] MEDS ORDERED: BUME2 PO (20:33)
[2020-09-12] MEDS ORDERED: Keflex250 MG PO (20:33)
== END 2020-09-11 12:06 | disposition home or self-care (01) ==
LOC: ER 07:18
PROVIDERS: Emergency Medicine
DX: K80.20 Calculus of gallbladder without cholecystitis without obstruction (principal); K21.9 Gastro-esophageal reflux disease without esophagitis; Z86.73 Personal history of transient ischemic attack (TIA), and cerebral infarction without residual deficits; Z79.899 Other long term (current) drug therapy; Z88.0 Allergy status to penicillin; Z88.2 Allergy status to sulfonamides; Z88.1 Allergy status to other antibiotic agents; Z88.8 Allergy status to other drugs, medicaments and biological substances; Z91.013 Allergy to seafood; Z88.5 Allergy status to narcotic agent
CPT/HCPCS: 76705; 80053; 81001; 83690; 85025; 87077; 87086; 87186; 99284-25

== ENCOUNTER 2020-09-12 13:58 | Inpatient (IN) | payer OTHER ==
[~2020-09-12] VITALS: Ht 165.1 cm; Wt 60.1 kg
[~2020-09-12 13:58] MED LIST changes: +ONDA4ODT MM
[2020-09-12 14:24] LABS: BASOPHILS ABSOLUTE AUTO 0.01 K/mm3 (0.00-0.23); BASOPHILS PERCENT AUTO 0 % (0-2); EOSINOPHILS ABSOLUTE AUTO 0.12 K/mm3 (0.00-0.68); EOSINOPHILS PERCENT AUTO 5 % (0-6); Hematocrit 26.4 % (33.0-51.0); Hemoglobin 8.1 g/dL (11.5-16.0); IMMATURE GRAN ABSOLUTE AUTO 0.01 K/mm3 (0.00-0.10); IMMATURE GRAN PERCENT AUTO 0 % (0-1); LYMPHOCYTES ABSOLUTE AUTO 0.45 K/mm3 (0.84-5.20); LYMPHOCYTES PERCENT AUTO 18 % (21-46); MONOCYTES ABSOLUTE AUTO 0.21 K/mm3 (0.16-1.47); MONOCYTES PERCENT AUTO 8 % (4-13); Mean Corpuscular HGB 26.9 pg (26.0-34.0); Mean Corpuscular HGB Conc 30.7 g/dL (31.5-36.5); Mean Corpuscular Volume 88 fL (80-100); NEUTROPHILS ABSOLUTE AUTO 1.72 K/mm3 (1.96-9.15); NEUTROPHILS PERCENT AUTO 68 % (41-73); Platelet Count 121 K/mm3 (150-400); RDW Coefficient Variation 17.7 % (11.7-14.2); RDW Standard Deviation 56.9 fL (35.1-46.3); Red Blood Cell Count 3.01 M/mm3 (3.80-5.20); White Blood Cell Count 2.52 K/mm3 (4.00-11.30)
[2020-09-12 14:41] LABS: Albumin, Blood 2.6 g/dL (3.4-5.0); Albumin/Globulin Ratio 0.8 (0.8-1.8); Bun/Creatinine Ratio 30.7 (12.0-20.0); Creatinine, Blood 1.14 mg/dL (0.40-1.00); Globulin, Blood 3.3 g/dL (2.2-4.0); Potassium, Blood 4.1 mmol/L (3.5-5.5); Total Protein, Blood 5.9 g/dL (6.4-8.2)
[2020-09-12 19:58] LABS: Hematocrit 23.5 % (33.0-51.0); Hemoglobin 7.1 g/dL (11.5-16.0)
[2020-09-12] MEDS ORDERED: Keflex250 MG PO (20:33)
[2020-09-12] MEDS ORDERED: BUME2 PO (20:33)
[2020-09-12 22:43] LABS: Hematocrit 24.1 % (33.0-51.0); Hemoglobin 7.4 g/dL (11.5-16.0)
[2020-09-13 00:02] LABS: SARS-Cov-2 (COVID-19) PCR, MMC NEGATIVE (NEGATIVE)
[2020-09-13 03:23] LABS: BASOPHILS ABSOLUTE AUTO 0.01 K/mm3 (0.00-0.23); BASOPHILS PERCENT AUTO 1 % (0-2); EOSINOPHILS ABSOLUTE AUTO 0.09 K/mm3 (0.00-0.68); EOSINOPHILS PERCENT AUTO 5 % (0-6); Hematocrit 22.3 % (33.0-51.0); Hemoglobin 6.8 g/dL (11.5-16.0); Mean Corpuscular HGB 26.6 pg (26.0-34.0); Mean Corpuscular HGB Conc 30.5 g/dL (31.5-36.5); Mean Corpuscular Volume 87 fL (80-100); Mean Platelet Volume 11.1 fL (9.1-12.4); Platelet Count 92 K/mm3 (150-400); RDW Coefficient Variation 17.3 % (11.7-14.2); RDW Standard Deviation 55.7 fL (35.1-46.3); Red Blood Cell Count 2.56 M/mm3 (3.80-5.20); White Blood Cell Count 1.82 K/mm3 (4.00-11.30)
[2020-09-13 03:27] LABS: IMMATURE GRAN PERCENT AUTO 0 % (0-1); LYMPHOCYTES PERCENT AUTO 22 % (21-46); MONOCYTES ABSOLUTE AUTO 0.24 K/mm3 (0.16-1.47); MONOCYTES PERCENT AUTO 13 % (4-13); NEUTROPHILS ABSOLUTE AUTO 1.08 K/mm3 (1.96-9.15); NEUTROPHILS PERCENT AUTO 59 % (41-73)
[2020-09-13 03:35] LABS: International Normalized Ratio 1.46; Prothrombin Time Results 15.4 Sec (9.7-11.5)
[2020-09-13 03:40] LABS: Albumin, Blood 2.4 g/dL (3.4-5.0); Albumin/Globulin Ratio 0.8 (0.8-1.8); Bilirubin, Total 1.5 mg/dL (0.1-1.0); Calcium, Blood 7.7 mg/dL (8.5-10.1); Creatinine, Blood 1.07 mg/dL (0.40-1.00); Globulin, Blood 2.9 g/dL (2.2-4.0); Potassium, Blood 3.8 mmol/L (3.5-5.5); Total Protein, Blood 5.3 g/dL (6.4-8.2)
--- NOTE | 2020-09-13 05:40 | NUR ---
NEW ADMIT PT ARRIVED TO UNIT VIA HOSPITAL BED AT 2019. A/O X3 WITH FORGETFULNESS. PLEASANT AND COOPERATIVE. DAUGHTER CAME UP WITH PT AND HELPED ANSWER ADMISSION QUESTIONS REGARDING PT. PER DAUGHTER PT HAS HAD 7-8 BLOODY DIAHRREA EPISODES WITHIN THE PAST 2 DAYS. PT AMBULATES WITH 1 ASSIST WITH FWW. HAD 1 BROWN DIAHRREA EPISODE AFTER SETTLING ON TO UNIT. CALL LIGHT WITHIN REACH, BED ALARM ON.
--- NOTE | 2020-09-13 05:46 | NUR ---
PRE SCHOOL TEACHER SUMMARY PT A/O X3 WITH FORGETFULNESS. PLEASANT AND COOPERATIVE. DENIES PAIN, SOB, NAUSEA. PT HAD TOTAL OF 2 EPIDOES OF DIAHRREA THIS SHIFT. ONE WAS BROWN, THE ONE THIS MORNING WAS ALL RED AND LIQUID. AMBULATES TO BSC OR BATHROOM WITH 1 ASSIST AND FWW. VSS. CALL LIGHT WITHIN REACH, WILL CONTINUE TO MONITOR.
--- NOTE | 2020-09-13 06:31 | NUR ---
LOW H&H HOSPITALIST DR. HOUSTON MADE AWARE OF PT'S DROP IN H&H. 1 UNIT OF PRBC ORDERED. BLOOD TRANSFUSION VERBAL CONSENT RECEIEVED AND VERIFIED AND SIGNED BY 2 RN'S. WILL REPORT TO ONCOMING RN.
[2020-09-13 07:13] LABS: Adenovirus F 40/41 Not Detected (NOT DETECT); Astrovirus Not Detected (NOT DETECT); Campylobacter Sp Not Detected (NOT DETECT); Cryptosporidium Not Detected (NOT DETECT); Cyclospora Cayetanensis Not Detected (NOT DETECT); E. Coli O157 Not Detected (NOT DETECT); Entamoeba Histolytica Not Detected (NOT DETECT); Enteroaggregative E. coli-EAEC Not Detected (NOT DETECT); Enteropathogenic E. coli-EPEC Not Detected (NOT DETECT); Enterotoxigenic E. coli-ETEC Not Detected (NOT DETECT); Giardia Lamblia Not Detected (NOT DETECT); Norovirus GI/GII Detected (NOT DETECT); Plesiomonas Shigelloides Not Detected (NOT DETECT); Rotavirus A Not Detected (NOT DETECT); Salmonella Sp Not Detected (NOT DETECT); Sapovirus Not Detected (NOT DETECT); Shiga Toxin-prod E. coli-STEC Not Detected (NOT DETECT); Shigella/Enteroin E. coli-EIEC Not Detected (NOT DETECT); Vibrio Cholerae Not Detected (NOT DETECT); Vibrio Sp Not Detected (NOT DETECT); Yersinia Enterocolitica Not Detected (NOT DETECT)
[2020-09-13 07:16] LABS: Hematocrit 21.5 % (33.0-51.0); Hemoglobin 6.6 g/dL (11.5-16.0)
--- NOTE | 2020-09-13 10:20 | NUR ---
Pt resting in bed upon arrival. Pt is A&OX3/4. Pt denies pain and dyspnea at this time. Reviewed plan of care with Pt. Engaged in therapeutic and gentle education regarding disease process. Educated on trajectory of disease and the importance of planning for the future. Discussed having routine conversations with PCP and GI MD. Educated on having multiple plans in place as disease progresses based off of goals and values. Discussed current code status with Pt confirming her wishes for DNR. Recieved verbal permission from Pt to discuss conversation and update on plan of care with Pt's daughter. Pt expresses appreciation of visit. Spoke with Pt's primary RN Sydnee and discussed case. Called and spoke with Pt's daughter. Provided update on plan of care and relayed conversation with Pt. Victoria reports having a completed POLST for Pt and will bring with her when she visits Pt during visiting hours. Palliative Care will remain available.
[2020-09-13 14:16] LABS: Hematocrit 26.6 % (33.0-51.0)
--- NOTE | 2020-09-13 14:16 | NUR ---
ADMIT: 09/12/20 DISCHARGE: DX: Cirrhosis CC: kwilcox YAQUELIN CALL: RESIDENCE: Home CAREGIVER: Victoria Contreras, Child, kleber Gilliland, Family Member, DX: Cardiac valve disease, Cirrhosis, CAD, GERD, see list DME: compression stockings, 4-wheeled walker, CCM: Referral- 2018 HOME HEALTH: [facility] & [facility] - 2020 SUMMARY: 09/13/20- spoke with Mauro in palliative care. They have been asked to meet with the pt and discuss comfort care and end of life. Pt's daughter is to bring in an updated POLST form. Mauro will make a copy for EFM. Pt has colonoscopy scheduled for today. Pt could potentially discharge over the weekend after she has test. Per palliative care note, pt is now a DNR. -daniel
[2020-09-13 15:27] LABS: Hemoglobin 7.9 g/dL (11.5-16.0)
--- NOTE | 2020-09-13 16:38 | NUR ---
PT TRANSFERED TO [facility] FROM FLOOR. History, Chart, Medications and Allergies reviewed before start of procedure. Lungs clear T/O to Auscultation. Patient confirms NPO status and agrees with scheduled surgery. Pre-Op teaching done. Pt verbalizes understanding.
--- NOTE | 2020-09-13 17:01 | NUR ---
PT HAS BEEN AOX3 WITH MILD CONFUSION. PT HAS BEEN COOPERATIVE. UP TO COMMODE WITH SMALL BLOODY STOOLS. LAST H&H WAS 7.[address] PIERCE ORDERED LABS FOR TOMORROW MORNING TO MONITOR LEVELS. PT CURRENTLY HAVING UPPER SCOPE COMPLETED. WILL CONTINUE CLOSE MONITORING OF PT WHEN SHE RETURNS.
--- NOTE | 2020-09-13 17:31 | NUR ---
09/13/20 1731 MINDA HUMMEL History, Chart, Medications and Allergies reviewed before start of procedure. 3-LEAD EKG REVIEWED WITH PHYSICIAN PRIOR TO START OF PROCEDURE. O2 VIA POM INTACT THROUGHOUT SEDATION/PROCEDURE. MONITOR INTACT WITH CONTINUOUS PULSE OXIMETRY AND INTERMITTENT BP. MAC WITH DR. PERRY
[2020-09-14 04:20] LABS: BASOPHILS ABSOLUTE AUTO 0.01 K/mm3 (0.00-0.23); BASOPHILS PERCENT AUTO 0 % (0-2); EOSINOPHILS ABSOLUTE AUTO 0.11 K/mm3 (0.00-0.68); EOSINOPHILS PERCENT AUTO 4 % (0-6); Hematocrit 19.9 % (33.0-51.0); Hemoglobin 6.3 g/dL (11.5-16.0); IMMATURE GRAN ABSOLUTE AUTO 0.01 K/mm3 (0.00-0.10); IMMATURE GRAN PERCENT AUTO 0 % (0-1); LYMPHOCYTES ABSOLUTE AUTO 0.65 K/mm3 (0.84-5.20); LYMPHOCYTES PERCENT AUTO 21 % (21-46); MONOCYTES ABSOLUTE AUTO 0.34 K/mm3 (0.16-1.47); MONOCYTES PERCENT AUTO 11 % (4-13); Mean Corpuscular HGB 26.8 pg (26.0-34.0); Mean Corpuscular HGB Conc 31.7 g/dL (31.5-36.5); Mean Corpuscular Volume 85 fL (80-100); Mean Platelet Volume 10.2 fL (9.1-12.4); NEUTROPHILS ABSOLUTE AUTO 1.96 K/mm3 (1.96-9.15); NEUTROPHILS PERCENT AUTO 64 % (41-73); Platelet Count 101 K/mm3 (150-400); RDW Coefficient Variation 17.2 % (11.7-14.2); RDW Standard Deviation 53.1 fL (35.1-46.3); Red Blood Cell Count 2.35 M/mm3 (3.80-5.20); White Blood Cell Count 3.08 K/mm3 (4.00-11.30)
[2020-09-14 04:44] LABS: Albumin, Blood 2.2 g/dL (3.4-5.0); Albumin/Globulin Ratio 0.9 (0.8-1.8); Bilirubin, Total 2.3 mg/dL (0.1-1.0); Bun/Creatinine Ratio 21.7 (12.0-20.0); Calcium, Blood 6.9 mg/dL (8.5-10.1); Creatinine, Blood 1.06 mg/dL (0.40-1.00); Globulin, Blood 2.5 g/dL (2.2-4.0); Potassium, Blood 3.5 mmol/L (3.5-5.5); Total Protein, Blood 4.7 g/dL (6.4-8.2)
--- NOTE | 2020-09-14 06:45 | NUR ---
SUMMARY PT DRANK ALL OF HER GOLYTELY. PT HAD MULTIPLE BLOODY BM'S. PT DENIES PAIN OR N/V. PT HAS SLEPT WELL T/O SHIFT. PT THIS WAS FOUND W/ LOW HGB. DR CRAMER CALLED AND 1 UNIT PRBC WAS ORDERED. BLOOD CURRENTLY RUNNING AND PT TOLERATING WELL. CALL LIGHT IN REACH AND BED ALARM ON.
--- NOTE | 2020-09-14 11:34 | NUR ---
INTO [facility]IA [facility] FROM [facility], [facility]. DAUGHTER AT BEDSIDE (POA). History, Chart, Medications and Allergies reviewed before start of procedure.Patient confirms NPO status and agrees with scheduled surgery. Patient states colon prep results clear.Lungs clear T/O to Auscultation.
--- NOTE | 2020-09-14 11:58 | NUR ---
09/14/20 1158 Mauro Steele History, Chart, Medications and Allergies reviewed before start of procedure. MONITOR INTACT WITH CONTINUOUS PULSE OXIMETRY AND INTERMITTENT BP. 3-LEAD EKG MONITORED DURING PROCEDURE. O2 VIA N/C INTACT THROUGHOUT SEDATION/PROCEDURE. See Anesthesia record:DR PERRY.
--- NOTE | 2020-09-14 18:19 | NUR ---
END OF SHIFT SUMMARY: PATIENT DENIED PAIN THROUGHOUT SHIFT. PATIENT TOLERATED THE EFFECTS OF GO-LYTELY THIS MORNING WITHOUT NAUSEA OR ABDOMINAL DISCOMFORT. PATIENT TOLERATED HER FULL LIQUID DINNER WITHOUT NAUSEA OR ABDOMINAL DISCOMFORT. PATIENT OFF THE UNIT FOR COLONOSCOPY AROUND 11:50. PATIENT RETURNED TO UNIT ALERT AND ORIENTED X 4. REPORT RECEIVED FROM ALLEN LUNA. PATIENT CONTINUED TO DENY PAIN OR GASTRIC DISCOMFORT. PATIENT TOLERATED THIS MORNINGS UNIT OF BLOOD AND THIS AFTERNOON'S UNIT OF BLOOD WELL. NO SIGNS OR SYMPTOMS OF A REACTION PRESENT. NO SIGNS OR SYMPTOMS OF GI PRESENT. PATIENT DID NOT PASS ANY BLOODY STOOLS.
--- NOTE | 2020-09-14 19:30 | NUR ---
PROVIDER NOTIFY PRINT PROJECT MANAGER PROVIDER AWARE OF HYPOTENSION AND RECENT 400ML OF BRIGHT RED STOOL. NOTIFIED DR. BROOKS WELL, UNABLE TO COMPLETE TAGGED RBC SCAN D/T NUCLEAR MED UNAVAILABLE. PER DR. BROOKS OK TO D/C THAT ORDER. PER PRINT PROJECT MANAGER PROVIDER, SERIAL CBC'S, CT OF ABD, AND 500ML BOLUS GIVEN. WILL CONTINUE TO MONITOR.
--- NOTE | 2020-09-14 19:37 | NUR ---
BLOODY STOOL: AT 18:50, DICE SPOTTER NOTIFIED RN OF RED LIQUID STOOL. IN BSC WAS 400ML OF DARK, LIQUID THAT APPEARS TO BE PRIMARILY BLOOD. PATIENT DENIED DIZZINESS, SHORTNESS OF BREATH OR WEAKNESS. VITAL SIGNS TAKEN. NOTIFIED DR. BROOKS AND ONCOMING RNJESUS. NEW ORDERS RECEIVED AND ENTERED.
[2020-09-14 19:51] LABS: Mean Corpuscular HGB 27.5 pg (26.0-34.0); Mean Corpuscular Volume 86 fL (80-100); Platelet Count 95 K/mm3 (150-400); RDW Coefficient Variation 16.9 % (11.7-14.2); RDW Standard Deviation 52.7 fL (35.1-46.3); Red Blood Cell Count 2.91 M/mm3 (3.80-5.20); White Blood Cell Count 2.91 K/mm3 (4.00-11.30)
[2020-09-14 20:13] LABS: BASOPHILS PERCENT MAN 0 % (0-2); EOSINOPHILS ABSOLUTE MAN 0.17 K/mm3 (0.00-0.68); EOSINOPHILS PERCENT MAN 6 % (0-6); LYMPHOCYTES % ATYPICAL MANUAL 3 % (0-0); LYMPHOCYTES ABSOLUTE MAN 1.07 K/mm3 (0.84-5.20); LYMPHOCYTES PERCENT MAN 34 % (21-46); MONOCYTES ABSOLUTE MAN 0.02 K/mm3 (0.16-1.47); MONOCYTES PERCENT MAN 1 % (4-13); NEUTROPHILS ABSOLUTE MAN 1.62 K/mm3 (1.96-9.15); SEG NEUTROPHILS PERCENT MAN 56 % (41-73); TOTAL CELLS COUNTED 100
--- NOTE | 2020-09-14 22:10 | NUR ---
UPDATE HOTEL FRONT OFFICE MANAGER PROVIDER NOTIFIED OF ACTIVE RECTAL BLEEDING AND 200ML OF BRIGHT RED OUTPUT. NEW ORDER TO TRANSFUSE 1 UNIT PRBC.
[2020-09-15 02:14] LABS: BASOPHILS ABSOLUTE AUTO 0.01 K/mm3 (0.00-0.23); BASOPHILS PERCENT AUTO 0 % (0-2); EOSINOPHILS ABSOLUTE AUTO 0.09 K/mm3 (0.00-0.68); EOSINOPHILS PERCENT AUTO 3 % (0-6); Hematocrit 24.7 % (33.0-51.0); Hemoglobin 8.1 g/dL (11.5-16.0); Mean Corpuscular HGB 27.4 pg (26.0-34.0); Mean Corpuscular HGB Conc 32.8 g/dL (31.5-36.5); Mean Corpuscular Volume 83 fL (80-100); Mean Platelet Volume 10.7 fL (9.1-12.4); Platelet Count 88 K/mm3 (150-400); RDW Coefficient Variation 16.3 % (11.7-14.2); Red Blood Cell Count 2.96 M/mm3 (3.80-5.20); White Blood Cell Count 2.71 K/mm3 (4.00-11.30)
[2020-09-15 02:16] LABS: IMMATURE GRAN ABSOLUTE AUTO 0.02 K/mm3 (0.00-0.10); IMMATURE GRAN PERCENT AUTO 1 % (0-1); LYMPHOCYTES ABSOLUTE AUTO 0.95 K/mm3 (0.84-5.20); LYMPHOCYTES PERCENT AUTO 35 % (21-46); MONOCYTES ABSOLUTE AUTO 0.24 K/mm3 (0.16-1.47); MONOCYTES PERCENT AUTO 9 % (4-13); NEUTROPHILS PERCENT AUTO 52 % (41-73)
--- NOTE | 2020-09-15 04:32 | NUR ---
SHIFT SUMMARY A/OX3, FORGETFUL AT TIMES. PLEASANT AND COOPERATIVE WITH CARE. HYPOTENSIVE T/O SHIFT, BOLUS GIVEN X1. 1 UNIT PRBC TRANSFUSED, PLEASE SEE PREVIOUS NOTES. PT REPORTS DIZZINESS UPON STANDING WITH UNSTEADY GAIT. CT OF ABD COMPLETED THIS SHIFT, RESULTS PENDING RADIOLOGY REPORT. DENIES PAIN OR SOB. BED IN LOWEST POSITION, ALARM ON, CALL LIGHT IN REACH. WILL CONTINUE TO MONITOR AND REPORT TO ONCOMING RN.
[2020-09-15 08:20] LABS: Hematocrit 24.2 % (33.0-51.0); Mean Corpuscular HGB 27.7 pg (26.0-34.0); Mean Corpuscular HGB Conc 33.1 g/dL (31.5-36.5); Mean Corpuscular Volume 84 fL (80-100); Mean Platelet Volume 11.4 fL (9.1-12.4); Platelet Count 82 K/mm3 (150-400); RDW Coefficient Variation 16.6 % (11.7-14.2); RDW Standard Deviation 51.6 fL (35.1-46.3); Red Blood Cell Count 2.89 M/mm3 (3.80-5.20)
[2020-09-15 08:44] LABS: BAND PERCENT MAN 1 % (0-8); BASOPHILS ABSOLUTE MAN 0.02 K/mm3 (0.00-0.23); BASOPHILS PERCENT MAN 1 % (0-2); EOSINOPHILS ABSOLUTE MAN 0.13 K/mm3 (0.00-0.68); EOSINOPHILS PERCENT MAN 5 % (0-6); LYMPHOCYTES ABSOLUTE MAN 0.93 K/mm3 (0.84-5.20); LYMPHOCYTES PERCENT MAN 36 % (21-46); MONOCYTES ABSOLUTE MAN 0.28 K/mm3 (0.16-1.47); MONOCYTES PERCENT MAN 11 % (4-13); NEUTROPHILS ABSOLUTE MAN 1.22 K/mm3 (1.96-9.15); SEG NEUTROPHILS PERCENT MAN 46 % (41-73); TOTAL CELLS COUNTED 100
--- NOTE | 2020-09-15 08:51 | NUR ---
UPDATE TO DR. BROOKS: DR. BROOKS CALLED TO CHECK ON PATIENT. NOTIFIED HIM OF EVENTS DURING THE NIGHT. CONFIRMED THAT THE TAGGED RBC TEST HAS BEEN CANCELED. DISCUSSED THE PATIENT'S DIET. NEW ORDERS RECEIVED AND ENTERED.
--- NOTE | 2020-09-15 11:55 | NUR ---
EPISODE OF BLEEDING: LATE ENTRY: PATIENT HAD ANOTHER EPISODE OF RECTAL BLEEDING ACCOMPANIED BY A LOWER BP. PATIENT REPORTED SOME DIZZINESS. NOTIFIED DR. PIERCE AND DR. BROOKS. NEW ORDERS RECEIVED AND ENTERED.
--- NOTE | 2020-09-15 16:56 | NUR ---
RETURN FROM NUCLEAR MEDICINE: PATIENT LEFT FOR NUCLEAR MEDICINE TEST DURING PRBC ADMINISTRATION. MONTESSORI TEACHER, JOCELYNE Willingham ACCOMPANIED THE PATIENT. VITALS WERE UNABLE TO BE COMPLETED DURING SCAN. PATIENT ARRIVED BACK TO UNIT DENYING DIZZINESS OR PAIN. COMPLETION VITALS WNL FOR THE PATIENT (SEE VITALS). PATIENT ABLE TO TRANSFER FROM WHEELCHAIR TO BSC WITHOUT INCIDENT.
--- NOTE | 2020-09-15 18:56 | NUR ---
END OF SHIFT SUMMARY: PATIENT DENIED PAIN THROUGHOUT THE SHIFT. PATIENT'S MAJOR COMPLAINT IS LACK OF SOLID FOOD. PATIENT REPORTED MILD DIZZINESS AT TIMES. THE PATIENT EXPERIENCED ANOTHER EPISODE OF LIQUID BLOOD FROM THE RECTUM ONE TIME TODAY. (SEE NURSES NOTE). PATIENT DENIED PAIN OR DISCOMFORT. THIS WAS ACCOMPANIED BY A SLIGHT DIP OF BP. NO OTHER SIGNS OR SYMPTOMS OF BLEEDING THROUGHOUT THE DAY. PATIENT WENT TO NUCLEAR MEDICINE THIS AFTERNOON FOR A SCAN. PATIENT TOLERATED WELL. PATIENT'S DAUGHTER WAS ABLE TO SPEAK WITH DR. BROOKS AND DR. PIERCE TO FULLY UNDERSTAND PLAN OF CARE AND THE PATIENT'S OPTIONS.
--- NOTE | 2020-09-15 19:08 | NUR ---
UPDATE TO DR. BROOKS: NOTIFIED DR. BROOKS OF NUCLEAR SCAN RESULTS. PATIENT IS TO MAINTAIN CLEAR LIQUID DIET. DR. BROOKS ENCOURAGED TRANSFER OF PATIENT TO [facility] TO DETERMINE SOURCE OF BLEED. NEW ORDERS FOR LABS RECEIVED AND ENTERED.
[2020-09-15 19:32] LABS: Hematocrit 31.6 % (33.0-51.0); Hemoglobin 10.1 g/dL (11.5-16.0)
--- NOTE | 2020-09-15 23:42 | NUR ---
PT'S DAUGHTER (MAC) CALLED W/UPDATE PROVIDED. NO FURTHER Q'S/CONCERNS.
--- NOTE | 2020-09-16 00:22 | NUR ---
PT HAD APPROXIMATELY 200 MLS BRIGHT RED LIQUID STOOL. PT DENIES DIZZYNESS AND ALL OTHER S/S ANEMIA. MOST RECENT HGB/HCT WAS 10.1/31.6. VSS/AFEBRILE.
--- NOTE | 2020-09-16 04:18 | NUR ---
SUMMARY: PT A/OX3-4, MILDLY FORGETFULL AT TIMES BUT PLEASANT AND COOPERATIVE W/CARE. SHE CALLS APPROPRIATELY FOR ASSIST AND HAS DENIED DIZZINESS AND ALL OTHER S/S ANEMIA/BLEEDING. PT IS SBA TO [facility] AND HAD ANOTHER EPISODE BRIGHT RED BLOODY LIQUID STOOL, APPROXIMATELY 200 MLS. HGB/HCT HAD IMPROVED AFTER 1 UNIT PRBC'S RECIEVED ON DAY SHIFT W/AM CBC PENDING. PT REMAINS ON CLEAR LIQ DIET PER AND HE'S ENCOURAGING T/F TO [facility] TO DETERMINE SOURCE OF BLEEDING AFTER NUC MED STUDY WAS INCONCLUSIVE. PT'S DAUGHTER MAC WAS UPDATED THIS SHIFT. PT REMAINS SLIGHTLY HYPOTENSIVE W/SBP 90'S-1OO'S BUT HR IS STABLE AND PT IS ASYMPTOMATIC OF DISTRESS. ABX RECIEVED FOR TX OF UTI. PT DENIED COMPLAINTS, NO ACUTE CHANGES. WCTM AND REPORT TO DAY RN.
[2020-09-16 05:50] LABS: BASOPHILS ABSOLUTE AUTO 0.01 K/mm3 (0.00-0.23); BASOPHILS PERCENT AUTO 0 % (0-2); EOSINOPHILS PERCENT AUTO 4 % (0-6); Hematocrit 26.1 % (33.0-51.0); Hemoglobin 8.5 g/dL (11.5-16.0); IMMATURE GRAN PERCENT AUTO 0 % (0-1); LYMPHOCYTES ABSOLUTE AUTO 0.95 K/mm3 (0.84-5.20); LYMPHOCYTES PERCENT AUTO 41 % (21-46); MONOCYTES ABSOLUTE AUTO 0.16 K/mm3 (0.16-1.47); MONOCYTES PERCENT AUTO 7 % (4-13); Mean Corpuscular HGB 27.6 pg (26.0-34.0); Mean Corpuscular HGB Conc 32.6 g/dL (31.5-36.5); Mean Corpuscular Volume 85 fL (80-100); Mean Platelet Volume 10.7 fL (9.1-12.4); NEUTROPHILS ABSOLUTE AUTO 1.08 K/mm3 (1.96-9.15); NEUTROPHILS PERCENT AUTO 47 % (41-73); Platelet Count 72 K/mm3 (150-400); RDW Coefficient Variation 16.7 % (11.7-14.2); RDW Standard Deviation 51.8 fL (35.1-46.3); Red Blood Cell Count 3.08 M/mm3 (3.80-5.20)
--- NOTE | 2020-09-16 06:05 | NUR ---
HGB/HCT BACK DOWN TO 8.5/26.1 AND WAS 10.2/31.6 AFTER DAY SHIFT TRANSFUSION. PT HAD X1 EPISODE OF BLOODY STOOL TONIGHT REFLECTED BY DROP IN HGB/HCT TODAY.
[2020-09-16 06:14] LABS: Alanine Aminotransfer (ALT/SGP 25 U/L (12-78); Albumin, Blood 2.1 g/dL (3.4-5.0); Albumin/Globulin Ratio 0.9 (0.8-1.8); Alk Phos 68 U/L (50-136); Anion Gap 6 mmol/L (6-16); Aspartate Aminotrans (AST/SGOT 51 U/L (12-37); Bilirubin, Total 2.4 mg/dL (0.1-1.0); Blood Urea Nitrogen 11 mg/dL (8-24); Bun/Creatinine Ratio 12.4 (12.0-20.0); CO2, Blood 21 mmol/L (21-32); Calcium, Blood 6.9 mg/dL (8.5-10.1); Chloride, Blood 118 mmol/L (98-108); Creatinine, Blood 0.89 mg/dL (0.40-1.00); Globulin, Blood 2.3 g/dL (2.2-4.0); Glomerular Filtration Rate >60 (60-); Glucose, Blood 83 mg/dL (70-99); Potassium, Blood 3.5 mmol/L (3.5-5.5); Sodium, Blood 145 mmol/L (136-145); Total Protein, Blood 4.4 g/dL (6.4-8.2)
--- NOTE | 2020-09-16 17:06 | NUR ---
09/16/20 1706 MINDA HUMMEL History, Chart, Medications and Allergies reviewed before start of procedure. 3-LEAD EKG REVIEWED WITH PHYSICIAN PRIOR TO START OF PROCEDURE. O2 VIA POM INTACT THROUGHOUT SEDATION/PROCEDURE. MONITOR INTACT WITH CONTINUOUS PULSE OXIMETRY AND INTERMITTENT BP. MAC WITH DR. HAMILTON.
[2020-09-16 19:24] LABS: BASOPHILS ABSOLUTE AUTO 0.01 K/mm3 (0.00-0.23); BASOPHILS PERCENT AUTO 0 % (0-2); EOSINOPHILS ABSOLUTE AUTO 0.09 K/mm3 (0.00-0.68); EOSINOPHILS PERCENT AUTO 3 % (0-6); Hematocrit 32.3 % (33.0-51.0); Hemoglobin 10.5 g/dL (11.5-16.0); IMMATURE GRAN ABSOLUTE AUTO 0.01 K/mm3 (0.00-0.10); IMMATURE GRAN PERCENT AUTO 0 % (0-1); LYMPHOCYTES PERCENT AUTO 30 % (21-46); MONOCYTES PERCENT AUTO 7 % (4-13); Mean Corpuscular HGB 27.9 pg (26.0-34.0); Mean Corpuscular HGB Conc 32.5 g/dL (31.5-36.5); Mean Corpuscular Volume 86 fL (80-100); Mean Platelet Volume 10.3 fL (9.1-12.4); NEUTROPHILS ABSOLUTE AUTO 1.81 K/mm3 (1.96-9.15); NEUTROPHILS PERCENT AUTO 60 % (41-73); Platelet Count 79 K/mm3 (150-400); RDW Coefficient Variation 16.7 % (11.7-14.2); RDW Standard Deviation 52.5 fL (35.1-46.3); Red Blood Cell Count 3.76 M/mm3 (3.80-5.20); White Blood Cell Count 3.02 K/mm3 (4.00-11.30)
--- NOTE | 2020-09-16 19:26 | NUR ---
SHIFT SUMMARY PT AWAKE AT START OF SHIFT. VERY PLEASANT AND CO-OP. ICE CHIPS ONLY GIVEN PER PT REQUEST. PT WITH LOWER GI BLEED, UNDETERMINED SOURCE, PER REPORT. DR PIERCE IN TO SEE PT; VERBAL ORDERS TO GIVEN ANOTHER UNIT OF PRBC'S. PT WAS TO HAVE TX'D TO [facility] FOR HIGHER LEVEL OF CARE. [facility] LATER CALLED DR PIERCE TO REPORT THAT THEY COULD DO NOTHING FURTHER THAN WHAT HAD ALREADY BEEN DONE HERE. DR BROOKS LATER TOOK PT DOWN FOR UPPER AND LOWER SCOPE. PER DAY SX REPORT, 2 CLIPS PLACED IN STOMACH AND ABLATION DONE ON SEVERAL OTHER AREAS TO HOPEFULLY RESOLVE BLEEDING. PT TOLERATED PROCEDURE WELL. PALLIATIVE CARE HERE BEFORE PROCEDURE TO DISCUSS PLAN OF CARE. DAUGHTER AND PT TO DISCUSS HOSPICE IN THE FUTURE. PT PRESENTLY SITTING UP IN BED HAVING FL DINNER. DENIED FURTHER NEEDS. CALL LT IN REACH. REPORT GIVEN TO ONCOMING RN.
--- NOTE | 2020-09-16 20:31 | NUR ---
Pt resting able to follow part of conversation. pt daughter in for visit, she was notified that [facility] will not take pt. Pt jere is very distraught and having severe caregiver stress. She had back suregery two weeks ago. she had to take in her mother as she was failing and also her brother who is diabled and has lived with his mother his whole life. We spoke about prognois and she started crying. She stated her GI doctor had started the conversation. Kept it short and supportive and suggest she speak with her family about putting her on comfort measure gave her our number and offered support. Will have chaplian see her. Pt and family would do well with hospice support.
--- NOTE | 2020-09-17 04:21 | NUR ---
SHIFT SUMMARY ADMITTED FOR CIRRHOSIS. DNR CODE. CONTACT PRECAUTIONS FOR [facility]. PLAN IS FOR FAMILY AND HOSPITALIST TO DECIDE ON A FUTURE PLAN OF CARE. SHE HAS A POWERGLIDE IN BAUDILIO. NS INFUSING @ 100 ML/HR. SHE HAD AN UPPER AND LOWER SCOPE ON PREVIOUS SHIFT AND RECEIVED 2 GI CLIPS AND AN ABLATION. SHE HAS RECEIVED AT LEAST 4 UNITS OF BLOOD SINCE ADMIT.
[2020-09-17 05:30] LABS: BASOPHILS ABSOLUTE AUTO 0.01 K/mm3 (0.00-0.23); BASOPHILS PERCENT AUTO 0 % (0-2); EOSINOPHILS PERCENT AUTO 3 % (0-6); Hematocrit 29.8 % (33.0-51.0); Hemoglobin 9.8 g/dL (11.5-16.0); IMMATURE GRAN ABSOLUTE AUTO 0.02 K/mm3 (0.00-0.10); IMMATURE GRAN PERCENT AUTO 1 % (0-1); LYMPHOCYTES ABSOLUTE AUTO 0.78 K/mm3 (0.84-5.20); LYMPHOCYTES PERCENT AUTO 24 % (21-46); MONOCYTES ABSOLUTE AUTO 0.25 K/mm3 (0.16-1.47); MONOCYTES PERCENT AUTO 8 % (4-13); Mean Corpuscular HGB 28.2 pg (26.0-34.0); Mean Corpuscular HGB Conc 32.9 g/dL (31.5-36.5); Mean Corpuscular Volume 86 fL (80-100); Mean Platelet Volume 10.4 fL (9.1-12.4); NEUTROPHILS ABSOLUTE AUTO 2.09 K/mm3 (1.96-9.15); NEUTROPHILS PERCENT AUTO 64 % (41-73); Platelet Count 72 K/mm3 (150-400); RDW Coefficient Variation 16.9 % (11.7-14.2); Red Blood Cell Count 3.47 M/mm3 (3.80-5.20); White Blood Cell Count 3.25 K/mm3 (4.00-11.30)
[2020-09-17 05:43] LABS: International Normalized Ratio 1.46; Prothrombin Time Results 15.4 Sec (9.7-11.5)
[2020-09-17 05:51] LABS: Anion Gap 6 mmol/L (6-16); Blood Urea Nitrogen 9 mg/dL (8-24); Bun/Creatinine Ratio 10.1 (12.0-20.0); CO2, Blood 19 mmol/L (21-32); Calcium, Blood 7.1 mg/dL (8.5-10.1); Chloride, Blood 118 mmol/L (98-108); Creatinine, Blood 0.89 mg/dL (0.40-1.00); Glomerular Filtration Rate >60 (60-); Glucose, Blood 77 mg/dL (70-99); Potassium, Blood 3.7 mmol/L (3.5-5.5); Sodium, Blood 143 mmol/L (136-145)
--- NOTE | 2020-09-17 13:05 | NUR ---
TRANSFER PT TRANSFERRED TO ROOM 304 VIA WHEELCHAIR. REPORT GIVEN TO ALLEN MARSH. BELONGINGS WITH PT. THIS RN CALLED MAC, PT'S DAUGHTER NOTIFIED OF ROOM CHANGE.
--- NOTE | 2020-09-17 17:48 | NUR ---
ADMIT: 09/12/20 DISCHARGE: DX: Cirrhosis CC: kwilcox YAQUELIN CALL: RESIDENCE: Home CAREGIVER: Victoria Contreras, Child, kleber Gilliland, Family Member, DX: Cardiac valve disease, Cirrhosis, CAD, GERD, see list DME: compression stockings, 4-wheeled walker, CCM: Referral- 2018 HOME HEALTH: [facility] - 2020 SUMMARY: 09/17/20- per chart review with LEN Davis has been consulted and they are going to work on advancing the pt's diet. Plan is to potentially d/c the pt either Wednesday or . -daniel
--- NOTE | 2020-09-17 18:33 | NUR ---
Spiritual care note: Spent time with pt and dtr. Pt confused and had trouble following conversation. She smiles easily and became tearful during my prayer. Dtr, Victoria spoke at length about her family's numerous struggles of late. She appeared to benefit from theraputic listening and gentle college and career counselor. Advanced Directive and POLST completed, signed, and copies made. One copy of each placed in chart. Per POLST, Clara wishes to be DNR, comfort measures, no tube feeding. I will continue to follow at pt request.
--- NOTE | 2020-09-17 19:16 | NUR ---
SHIFT SUMMARY- PT IS ALERT, PLESANT AND COOPERATIVE. SHE IS FORGETFUL AT TIMES. SHE WAS TRANSFERED FROM [facility] THIS MORNING. HER CAREGIVER WAS IN THIS AFTERNOON. SHE WAS ADVANCED TO A REGULAR DIET BY GI. SHE IS EATING AND DRINKING WELL. HER IV FLUIDS WERE DISCONTINUED THIS SHIFT. SHE IS IN THE CHAIR WITH THE CALL LIGHT WITHIN REACH.
--- NOTE | 2020-09-18 05:06 | NUR ---
SUMMARY NO NEW ISSUES NOTED. NO BLEEDING NOTED THIS SHIFT. PT IS EAGER TO GO HOME. PT HAS SLEPT WELL T/O SHIFT. PT CURRENTLY SLEEPING IN NO DISTRESS. CALL LIGHT IN REACH.
[2020-09-18 09:08] LABS: BASOPHILS ABSOLUTE AUTO 0.02 K/mm3 (0.00-0.23); BASOPHILS PERCENT AUTO 1 % (0-2); EOSINOPHILS PERCENT AUTO 3 % (0-6); Hematocrit 30.2 % (33.0-51.0); Hemoglobin 9.8 g/dL (11.5-16.0); IMMATURE GRAN ABSOLUTE AUTO 0.01 K/mm3 (0.00-0.10); IMMATURE GRAN PERCENT AUTO 0 % (0-1); LYMPHOCYTES ABSOLUTE AUTO 0.85 K/mm3 (0.84-5.20); LYMPHOCYTES PERCENT AUTO 23 % (21-46); MONOCYTES ABSOLUTE AUTO 0.29 K/mm3 (0.16-1.47); MONOCYTES PERCENT AUTO 8 % (4-13); Mean Corpuscular HGB 28.2 pg (26.0-34.0); Mean Corpuscular HGB Conc 32.5 g/dL (31.5-36.5); Mean Corpuscular Volume 87 fL (80-100); Mean Platelet Volume 10.6 fL (9.1-12.4); NEUTROPHILS PERCENT AUTO 65 % (41-73); Platelet Count 77 K/mm3 (150-400); RDW Coefficient Variation 17.1 % (11.7-14.2); RDW Standard Deviation 53.1 fL (35.1-46.3); Red Blood Cell Count 3.47 M/mm3 (3.80-5.20); White Blood Cell Count 3.67 K/mm3 (4.00-11.30)
--- NOTE | 2020-09-18 16:14 | NUR ---
09/18/20- per chart review with Dr. tomas, pt is improving and as long she is not having any GI bleeds, she could potentially discharge home tomorrow. -daniel
--- NOTE | 2020-09-18 17:55 | NUR ---
SHIFT SUMMARY- PT IS A/I, PLESANT AND COOPERATIVE. SHE IS EATING AND DRINKING WELL. SHE WORKED WITH PT TODAY AND TOLERATED WELL. SHE WAS UP TO THE CHAIR SEVERAL TIMES THIS SHIFT. SHE SLEPT INTERMITENTLY TRHOUGHOUT THIS SHIFT. HER BED IS IN THE LOW POSITOIN AND CALL LIGHT IS WITIN REACH.
--- NOTE | 2020-09-18 18:27 | NUR ---
Spiritual care note: Clara was talkative and friendly. Her dtr, Victoria, was at bedside. Provided spiritual direction to Clara and prayer for peace at her request. Both pt and family state they are waiting for clear dx and POC. I will remain available.
--- NOTE | 2020-09-19 05:12 | NUR ---
SUMMARY PT HAS NO NEW ISSUES NOTED. PT HAS SLEPT T/O SHIFT. PT HAS BEEN VOIDING WELL W/ NO BLEEDING NOTED. PT LEG EDEMA IS IMPROVING. PT CURRENTLY AWAKE AND IN NO DISTRESS. CALL LIGHT IN REACH.
[2020-09-19 09:19] LABS: Hematocrit 30.7 % (33.0-51.0)
[2020-09-19 09:25] LABS: Bun/Creatinine Ratio 10.3 (12.0-20.0); Calcium, Blood 7.9 mg/dL (8.5-10.1); Creatinine, Blood 1.17 mg/dL (0.40-1.00); Potassium, Blood 4.2 mmol/L (3.5-5.5)
--- NOTE | 2020-09-19 12:23 | NUR ---
Spiritual care note: Provided prayer and encouragement to Clara to good effect. She admits she is nervous about going home. She does not want to burden her dtr. Gentle veterans' counselor well recieved.
--- NOTE | 2020-09-19 13:17 | NUR ---
09/19/20- PER CHART REVIEW WITH DR. PATEL, PT IS STABLE FOR DISCHARGE. SPOKE WITH DAUGHTER MAC, SHE REPORTS THAT PRIOR TO PT COMING INTO THE HOSPITAL, PT WAS LIVING WITH HER AND DAUGHTER IS HER CAREGIVER. THEY LIVE IN A SINGLE STORY HOME WITH WORKING UTILITIES AND PT WILL BE DISCHARGING BACK HOME WITH DAUGHTER. DAUGHTER WILL BE COMING TO THE HOSPITAL AND WILL BE TRANSPORTING HER HOME. DAUGHTER MAC IS HER POA AND THEY DO NOT NEED AND DME EQUIPMENT IN THE HOME. DISCUSSED YAQUELIN CALL AND DAUGHTER ACKNOWLEDGED UNDERSTANDING. PHARMACY IS [facility] IN [place]. CALLED AND UPDATED FLOOR NURSE.-DEBBIE
--- NOTE | 2020-09-19 16:34 | NUR ---
PT DISCHARGED FROM THE UNIT. POWERGLIDE REMOVED. DISCHARGE INSTRUCTIONS REVIEWED. DAUGHTER AT BEDSIDE DURING DISCHARGE. NO NEW MEDICATION. PT LEFT UNIT VIA WHEEL CHAIR. DAUGHTER TO DRIVE HOME
== END 2020-09-19 15:20 | disposition home or self-care (01) | DRG 377 ==
LOC: ER 13:58 → ERHOLD 13:59 → MEDS 13:59
PROVIDERS: Emergency Medicine; Hospitalist; Internal Medicine; Internal Medicine Gastroenterology; ADMIT Internal Medicine
PROC: 0W3P8ZZ Control Bleeding in Gastrointestinal Tract, Via Natural or Artificial Opening Endoscopic (ICD-10-PCS; 2020-09-13)
PROC: 0DBH8ZZ Excision of Cecum, Via Natural or Artificial Opening Endoscopic (ICD-10-PCS; 2020-09-14)
PROC: 0W3P8ZZ Control Bleeding in Gastrointestinal Tract, Via Natural or Artificial Opening Endoscopic (ICD-10-PCS; 2020-09-14)
PROC: 0W3P8ZZ Control Bleeding in Gastrointestinal Tract, Via Natural or Artificial Opening Endoscopic (ICD-10-PCS; 2020-09-16)
PROC: 0DJD8ZZ Inspection of Lower Intestinal Tract, Via Natural or Artificial Opening Endoscopic (ICD-10-PCS; 2020-09-16)
PROC: 30233N1 Transfusion of Nonautologous Red Blood Cells into Peripheral Vein, Percutaneous Approach (ICD-10-PCS; principal; 2020-09-16 17:00)
DX: K57.31 Diverticulosis of large intestine without perforation or abscess with bleeding (principal); E43 Unspecified severe protein-calorie malnutrition; I85.11 Secondary esophageal varices with bleeding; A08.39 Other viral enteritis; R18.8 Other ascites; D61.818 Other pancytopenia; K76.6 Portal hypertension; N39.0 Urinary tract infection, site not specified; Z20.822 Contact with and (suspected) exposure to COVID-19; Z66 Do not resuscitate; I35.0 Nonrheumatic aortic (valve) stenosis; K21.9 Gastro-esophageal reflux disease without esophagitis; K31.811 Angiodysplasia of stomach and duodenum with bleeding; K55.21 Angiodysplasia of colon with hemorrhage; I27.20 Pulmonary hypertension, unspecified; M79.7 Fibromyalgia; E78.5 Hyperlipidemia, unspecified; F32.9 Major depressive disorder, single episode, unspecified; F41.9 Anxiety disorder, unspecified; K80.20 Calculus of gallbladder without cholecystitis without obstruction; K74.69 Other cirrhosis of liver; J43.9 Emphysema, unspecified; J45.909 Unspecified asthma, uncomplicated; M19.90 Unspecified osteoarthritis, unspecified site; K72.10 Chronic hepatic failure without coma; D12.0 Benign neoplasm of cecum; G62.9 Polyneuropathy, unspecified; F01.50 Vascular dementia, unspecified severity, without behavioral disturbance, psychotic disturbance, mood disturbance, and anxiety; N18.31 Chronic kidney disease, stage 3a; K60.2 Anal fissure, unspecified; M06.9 Rheumatoid arthritis, unspecified; Z88.2 Allergy status to sulfonamides; Z88.8 Allergy status to other drugs, medicaments and biological substances; Z88.1 Allergy status to other antibiotic agents; Z88.5 Allergy status to narcotic agent; Z88.0 Allergy status to penicillin; Z91.013 Allergy to seafood; Z86.73 Personal history of transient ischemic attack (TIA), and cerebral infarction without residual deficits; Z85.828 Personal history of other malignant neoplasm of skin; Z90.89 Acquired absence of other organs; Z98.890 Other specified postprocedural states; Z90.710 Acquired absence of both cervix and uterus; Z79.899 Other long term (current) drug therapy; Z87.11 Personal history of peptic ulcer disease; Z86.010 Personal history of colon polyps; Z68.22 Body mass index [BMI] 22.0-22.9, adult
CPT/HCPCS: 0097U; 36415; 36430; 74176; 74177; 78278; 80048; 80053; 82105; 82947; 83690; 85014; 85018; 85025; 85610; 86850; 86900; 86901; 86923; 94762; 96365; 96366; 96376; 97110; 97116; 97161; 97165; 97530; 97535; 99285-25; A9270; A9560; C1751; G0378; J0744; J2370; J2405; J2704; J2765; J7030; J7120; P9016; Q9967; U0004

== ENCOUNTER 2021-02-17 00:29 | Inpatient (IN) | payer OTHER ==
[~2021-02-17] VITALS: Ht 160 cm; Wt 59.9 kg
[~2021-02-17 00:29] MED LIST changes: +Keflex250 MG PO
[2021-02-17 01:33] LABS: BASOPHILS ABSOLUTE AUTO 0.01 K/mm3 (0.00-0.23); BASOPHILS PERCENT AUTO 1 % (0-2); EOSINOPHILS ABSOLUTE AUTO 0.06 K/mm3 (0.00-0.68); EOSINOPHILS PERCENT AUTO 3 % (0-6); Hematocrit 26.3 % (33.0-51.0); Hemoglobin 7.9 g/dL (11.5-16.0); IMMATURE GRAN PERCENT AUTO 0 % (0-1); LYMPHOCYTES ABSOLUTE AUTO 0.35 K/mm3 (0.84-5.20); LYMPHOCYTES PERCENT AUTO 17 % (21-46); MONOCYTES ABSOLUTE AUTO 0.28 K/mm3 (0.16-1.47); MONOCYTES PERCENT AUTO 13 % (4-13); Mean Corpuscular HGB 24.7 pg (26.0-34.0); Mean Corpuscular Volume 82 fL (80-100); Mean Platelet Volume 11.7 fL (9.1-12.4); NEUTROPHILS ABSOLUTE AUTO 1.41 K/mm3 (1.96-9.15); NEUTROPHILS PERCENT AUTO 67 % (41-73); Platelet Count 119 K/mm3 (150-400); RDW Coefficient Variation 17.6 % (11.7-14.2); RDW Standard Deviation 53.7 fL (35.1-46.3); White Blood Cell Count 2.11 K/mm3 (4.00-11.30)
[2021-02-17 01:45] LABS: Source, Urine Clean Catch
[2021-02-17 01:56] LABS: Bilirubin, Urine Neg (Neg); Blood, Urine 1+ (Neg); Glucose Qualitative, Urine Neg (Neg); Ketones, Urine 1+ (Neg); Leukocyte Esterase, Urine 1+ (Neg); Nitrite, Urine Pos (Neg); Protein, Urine Neg (Neg); Urobilinogen, Urine NORM (Normal)
[2021-02-17 01:57] LABS: Influenza A, PCR NEGATIVE (NEGATIVE); Influenza B, PCR NEGATIVE (NEGATIVE); SARS-Cov-2 (COVID-19) PCR, MMC NEGATIVE (NEGATIVE)
[2021-02-17 01:58] LABS: Appearance, Urine Hazy (Clear); Color, Urine Yellow (P-Yellow)
[2021-02-17 02:01] LABS: Albumin, Blood 2.7 g/dL (3.4-5.0); Albumin/Globulin Ratio 0.7 (0.8-1.8); Bilirubin, Total 1.3 mg/dL (0.1-1.0); Bun/Creatinine Ratio 30.8 (12.0-20.0); Creatinine, Blood 1.07 mg/dL (0.40-1.00); Globulin, Blood 3.8 g/dL (2.2-4.0); Potassium, Blood 4.7 mmol/L (3.5-5.5); Total Protein, Blood 6.5 g/dL (6.4-8.2)
[2021-02-17 02:10] LABS: Amorphous Mod (0-Heavy); Bacteria Many /hpf; Red Blood Cells, Urine Rare /hpf (0-2); Squamous Epithelial Cells Few /hpf (Few)
[2021-02-17 02:12] LABS: Resp Syncytial Virus, PCR POSITIVE (NEGATIVE)
[2021-02-17] MEDS ORDERED: CEPH250A PO (03:38)
--- NOTE | 2021-02-17 08:00 | NUR ---
Pt laying in bed awake a/ox2, pleasant and cooperative with care, follows commands well, denies pain, lungs have some fine crackles, otherwise clear, on r/a, resp even and unlabored, has a nonproductive occ cough, hrr, tele in place running sr per monitor, see strip, no edema noted, ppp+1, cap refill <3sec, vs stable, afebrile, iv site to lac is clear and patent, btx4, abd flat soft nontender, voids without diff, skin c/w/d, maew, blue, call light in reach.
--- NOTE | 2021-02-17 18:02 | NUR ---
pt laying in bed sleeping when left undisturbed, no complaints, daughter in to see her, she was concerned about pt recieving a lovenox injection. doesn't want any blood thinners given as she has a bleeding problem. new iv was placed to rfa x1 attempt, good blood return. flushes well, no further changes this shift. call light in reach.
--- NOTE | 2021-02-18 05:18 | NUR ---
PT WAS A/O X3 , STABLE VITALS, NO ACUTE CHANGES, HAD SOME COUGHING DURING THE NIGHT. PT WAS PLEASANT AND COOPERATIVE.
--- NOTE | 2021-02-18 18:43 | NUR ---
PATIENT A/O X3. PT AMBULATES TO COMMODE.VOIDED 4 TIMES DURING. NO SIGNS OF ACUTE DISTRESS. NO COMPLAINTS OF PAIN/DISCOMFORT FOR SHIFT. REPORT GIVEN TO FAMILY ENGAGEMENT SPECIALIST NURSE
--- NOTE | 2021-02-19 05:11 | NUR ---
PT WAS A/O X4, STABLE VITAL SIGNS, NO ACUTE CHANGES. PT DENIES PAIN AND SLEPT THROUGH THE NIGHT
--- NOTE | 2021-02-19 19:04 | NUR ---
PATIENT A/O X3 FOR SHIFT. NO ACUTE CHANGES.PT DENIES PAIN. VITALS STABLE. REPORT GIVEN TO MIGUE SHIFT NURSE
--- NOTE | 2021-02-20 04:43 | NUR ---
PT A/O X4, STABLE VITALS, NO ACUTE CHANGES, PT ONLY CALLED FOR ASSISTANCE TO USE THE RESTROOM. PT COMPLAINED OF ENULOSE CAUSING HER TO USE THE TOILET MULTIPLE TIMES AT NIGHT AND DISTRUBING HER SLEEP.
[2021-02-20 05:43] LABS: Hematocrit 23.7 % (33.0-51.0); Hemoglobin 7.1 g/dL (11.5-16.0); Mean Corpuscular HGB 24.4 pg (26.0-34.0); Mean Corpuscular Volume 81 fL (80-100); Platelet Count 65 K/mm3 (150-400); RDW Coefficient Variation 17.6 % (11.7-14.2); RDW Standard Deviation 52.1 fL (35.1-46.3); Red Blood Cell Count 2.91 M/mm3 (3.80-5.20); White Blood Cell Count 2.77 K/mm3 (4.00-11.30)
[2021-02-20 06:42] LABS: Bun/Creatinine Ratio 24.6 (12.0-20.0); Calcium, Blood 8.8 mg/dL (8.5-10.1); Creatinine, Blood 0.98 mg/dL (0.40-1.00); Potassium, Blood 4.1 mmol/L (3.5-5.5)
[2021-02-20 07:13] LABS: BAND PERCENT MAN 1 % (0-8); BASOPHILS PERCENT MAN 0 % (0-2); EOSINOPHILS ABSOLUTE MAN 0.11 K/mm3 (0.00-0.68); EOSINOPHILS PERCENT MAN 4 % (0-6); LYMPHOCYTES ABSOLUTE MAN 0.77 K/mm3 (0.84-5.20); LYMPHOCYTES PERCENT MAN 28 % (21-46); MONOCYTES ABSOLUTE MAN 0.13 K/mm3 (0.16-1.47); MONOCYTES PERCENT MAN 5 % (4-13); NEUTROPHILS ABSOLUTE MAN 1.74 K/mm3 (1.96-9.15); SEG NEUTROPHILS PERCENT MAN 62 % (41-73); TOTAL CELLS COUNTED 100
--- NOTE | 2021-02-20 08:27 | NUR ---
CALL TO DR PATEL ABOUT THIS PT HGB. NO ORDER RECEIVED. WILL CONTINUE TO MONITOR
--- NOTE | 2021-02-20 18:20 | NUR ---
NO REPORTED PAIN. PT UP TO THE COMMODE WITH ASSISTANCE FOR SHIFT. NO ACUTE CHANGES. REGIONAL EXTENSION SERVICE SPECIALIST NURSE WILL CONTINUE TO MONITOR
--- NOTE | 2021-02-21 04:45 | NUR ---
PT WAS A/0 X3, PATIENT HAD LOW BP, NS 1000ML @ 125ML WAS GIVEN . PT DENIES ANY PAIN AND ONLY CALL FOR ASSISTANCE TO USE THE BEDSIDE COMMODE.
[2021-02-21 08:55] LABS: BASOPHILS ABSOLUTE AUTO 0.02 K/mm3 (0.00-0.23); BASOPHILS PERCENT AUTO 1 % (0-2); EOSINOPHILS PERCENT AUTO 3 % (0-6); Hematocrit 25.7 % (33.0-51.0); Hemoglobin 7.7 g/dL (11.5-16.0); IMMATURE GRAN ABSOLUTE AUTO 0.01 K/mm3 (0.00-0.10); IMMATURE GRAN PERCENT AUTO 0 % (0-1); LYMPHOCYTES ABSOLUTE AUTO 1.05 K/mm3 (0.84-5.20); LYMPHOCYTES PERCENT AUTO 35 % (21-46); MONOCYTES ABSOLUTE AUTO 0.36 K/mm3 (0.16-1.47); MONOCYTES PERCENT AUTO 12 % (4-13); Mean Corpuscular HGB 24.1 pg (26.0-34.0); Mean Corpuscular Volume 80 fL (80-100); NEUTROPHILS PERCENT AUTO 49 % (41-73); Platelet Count 75 K/mm3 (150-400); RDW Coefficient Variation 17.3 % (11.7-14.2); RDW Standard Deviation 50.6 fL (35.1-46.3); White Blood Cell Count 3.04 K/mm3 (4.00-11.30)
--- NOTE | 2021-02-21 15:16 | NUR ---
Received referral from [facility] Creel Operator (Isela Hernandez) on 02/21/2021. Patient was admitted to [facility] on 02/18/2021 due to acute encephalopathy. Patient is to discharge with orders for home health and elected [facility]. Met with patient and patient's daughter (Victoria Contreras) to further discuss the above. Patient and daughter decline home health services at this time stating "we have had home health multiple times in the past, we are confident we are able to manage at home without home health at this time". Informed patient that if they changed their mind they could always request services through their primary care provider. Provided patient with my business card and home health pamphlet. Communicated the above to [facility] Creel Operator (Isela Hernandez) and bedside RN (Sundeep Camacho). No further interventions required. Sonja Valentin Referral Liaison
--- NOTE | 2021-02-21 15:30 | NUR ---
Per chart review, Dr. Hernández patient is appropriate for discharge. Patient and patient's daughter denied barriers to discharge. Home health was ordered, Sonja from [facility] consulted with the patient and her daughter. They declined home health services and advised by Sonja that if they changed their mind, to contact her Wednesday otherwise the PCP would need to refer them at a later time. A hospital follow-up is scheduled with Dr. Teresa Macdonald on Thursday, February 25, 2021 at 04:20 PM. Patient's daughter is aware of this.
--- NOTE | 2021-02-21 16:18 | NUR ---
PATIENT A/O X3. AMBULATES WELL TO THE ROOM WITH ASSISTANCE. NO ACUTE CHANGES NOTED. PATIENT DENIES PAIN AND DISCOMFIORT FOR SHIFT.
--- NOTE | 2021-02-21 16:20 | NUR ---
ORDER RECEIVED TO DISCHARGE PATIENT.DAUGHTER AT BEDSIDE. DISCHARGE INSTRUCTIONS GIVEN TO PATIENT AND DAUGHTER. PATIENT AND DAUGHTER REFUSED HH. PHARMACY AND MEDS VERIFIED. PT DENIES PAIN. NO SIGNS OF ACUTE DISTRESS. PATIENT DISCHARGED
[2021-02-22 01:08] LABS: ALKALINE PHOSPHATASE, S 116 IU/L (44-121); BONE FRACTION: 22 % (14-68); INTESTINAL FRAC.: 18 % (0-18); LIVER FRACTION: 60 % (18-85)
== END 2021-02-21 16:30 | disposition home health service (06) | DRG 871 ==
LOC: ER 00:29 → MEDS 00:30
PROVIDERS: Internal Medicine; Student in an Organized Health Care Education/Training Program; ADMIT Internal Medicine
DX: A41.89 Other specified sepsis (principal); G93.41 Metabolic encephalopathy; N39.0 Urinary tract infection, site not specified; E72.20 Disorder of urea cycle metabolism, unspecified; D61.818 Other pancytopenia; Z16.342 Resistance to multiple antimycobacterial drugs; Z66 Do not resuscitate; Z20.822 Contact with and (suspected) exposure to COVID-19; B97.4 Respiratory syncytial virus as the cause of diseases classified elsewhere; K74.69 Other cirrhosis of liver; N18.30 Chronic kidney disease, stage 3 unspecified; M06.9 Rheumatoid arthritis, unspecified; Z88.8 Allergy status to other drugs, medicaments and biological substances; Z88.0 Allergy status to penicillin; Z88.5 Allergy status to narcotic agent; Z88.2 Allergy status to sulfonamides; Z88.1 Allergy status to other antibiotic agents; Z91.013 Allergy to seafood; K72.10 Chronic hepatic failure without coma; K74.60 Unspecified cirrhosis of liver; K21.9 Gastro-esophageal reflux disease without esophagitis; M19.90 Unspecified osteoarthritis, unspecified site; Z85.828 Personal history of other malignant neoplasm of skin; Z79.899 Other long term (current) drug therapy; Z90.710 Acquired absence of both cervix and uterus; Z98.890 Other specified postprocedural states; E86.0 Dehydration; J43.9 Emphysema, unspecified; F03.90 Unspecified dementia, unspecified severity, without behavioral disturbance, psychotic disturbance, mood disturbance, and anxiety; I27.20 Pulmonary hypertension, unspecified; M79.7 Fibromyalgia; F32.A Depression, unspecified; F41.9 Anxiety disorder, unspecified; Z86.73 Personal history of transient ischemic attack (TIA), and cerebral infarction without residual deficits; I35.0 Nonrheumatic aortic (valve) stenosis
CPT/HCPCS: 0241U; 36415; 71045; 80048; 80053; 81001; 82140; 82947; 83605; 83880; 84075; 84080; 85025; 87040; 87077; 87086; 87186; 93005; 93010; 94760; 96365; 96366; 96372; 99285-25; A9270; G0378; J0696; J1650; J2185; J7030

== ENCOUNTER 2021-06-07 21:43 | Observation (INO) | payer OTHER ==
[~2021-06-07] VITALS: Ht 160 cm; Wt 62.6 kg
[2021-06-07 22:48] LABS: BASOPHILS ABSOLUTE AUTO 0.01 K/mm3 (0.00-0.23); BASOPHILS PERCENT AUTO 0 % (0-2); EOSINOPHILS ABSOLUTE AUTO 0.07 K/mm3 (0.00-0.68); EOSINOPHILS PERCENT AUTO 3 % (0-6); Hematocrit 36.4 % (33.0-51.0); Hemoglobin 11.6 g/dL (11.5-16.0); IMMATURE GRAN PERCENT AUTO 0 % (0-1); LYMPHOCYTES ABSOLUTE AUTO 0.69 K/mm3 (0.84-5.20); LYMPHOCYTES PERCENT AUTO 26 % (21-46); MONOCYTES ABSOLUTE AUTO 0.28 K/mm3 (0.16-1.47); MONOCYTES PERCENT AUTO 11 % (4-13); Mean Corpuscular HGB 28.4 pg (26.0-34.0); Mean Corpuscular HGB Conc 31.9 g/dL (31.5-36.5); Mean Corpuscular Volume 89 fL (80-100); NEUTROPHILS ABSOLUTE AUTO 1.57 K/mm3 (1.96-9.15); NEUTROPHILS PERCENT AUTO 60 % (41-73); Platelet Count 97 K/mm3 (150-400); RDW Coefficient Variation 20.1 % (11.7-14.2); RDW Standard Deviation 65.1 fL (35.1-46.3); Red Blood Cell Count 4.08 M/mm3 (3.80-5.20); White Blood Cell Count 2.62 K/mm3 (4.00-11.30)
[2021-06-07 22:53] LABS: Mean Platelet Volume 10.2 fL (9.1-12.4)
[2021-06-07 22:58] LABS: Alanine Aminotransfer (ALT/SGP 31 U/L (12-78); Albumin/Globulin Ratio 0.8 (0.8-1.8); Alk Phos 156 U/L (50-136); Anion Gap 7 mmol/L (6-16); Aspartate Aminotrans (AST/SGOT 52 U/L (12-37); Bilirubin, Total 1.9 mg/dL (0.1-1.0); Blood Urea Nitrogen 27 mg/dL (8-24); Bun/Creatinine Ratio 27.4 (12.0-20.0); CO2, Blood 24 mmol/L (21-32); Calcium, Blood 9.2 mg/dL (8.5-10.1); Chloride, Blood 111 mmol/L (98-108); Creatinine, Blood 0.98 mg/dL (0.40-1.00); Ethanol (Alcohol), Blood, Med <3 mg/dL; Globulin, Blood 3.8 g/dL (2.2-4.0); Glomerular Filtration Rate 55 (60-); Glucose, Blood 87 mg/dL (70-99); Potassium, Blood 4.2 mmol/L (3.5-5.5); Sodium, Blood 142 mmol/L (136-145); Total Protein, Blood 6.8 g/dL (6.4-8.2)
[2021-06-08 00:11] LABS: Source, Urine Condom Cath
[2021-06-08 00:15] LABS: Bilirubin, Urine Neg (Neg); Blood, Urine 1+ (Neg); Glucose Qualitative, Urine Neg (Neg); Ketones, Urine 1+ (Neg); Leukocyte Esterase, Urine 3+ (Neg); Nitrite, Urine Pos (Neg); Protein, Urine Neg (Neg); Specific Gravity, Urine 1.025 (1.003-1.022); Urobilinogen, Urine NORM (Normal)
[2021-06-08 00:18] LABS: Appearance, Urine Hazy (Clear); Color, Urine Yellow (P-Yellow)
[2021-06-08 00:22] LABS: Bacteria Many /hpf; Red Blood Cells, Urine Rare /hpf (0-2); Squamous Epithelial Cells Few /hpf (Few); White Blood Cells, Urine TNTC /hpf (0-5)
[2021-06-08 00:35] LABS: U Amphetamine Screen Not Detected; U Barbituate Screen Not Detected; U Benzodiazapine Screen Not Detected; U Buprenorphine Screen Not Detected; U Cannabinoids Screen Not Detected; U Cocaine Screen Not Detected; U Methadone Screen Not Detected; U Methamphetamine Screen Not Detected; U Opiates Screen DETECTED; U Oxycodone Screen Not Detected; U Phencyclidine Screen Not Detected; U Propoxyphene Screen Not Detected
[2021-06-08 01:29] LABS: Influenza A, PCR NEGATIVE (NEGATIVE); Influenza B, PCR NEGATIVE (NEGATIVE); Resp Syncytial Virus, PCR NEGATIVE (NEGATIVE); SARS-Cov-2 (COVID-19) PCR, MMC NEGATIVE (NEGATIVE)
--- NOTE | 2021-06-08 05:27 | NUR ---
PT CAME IN FROM THE ED DUE TO CONFUSION AND INCREASED WEAKNESS. PT IS ALERT AND ORIENTED X3-4 CAN BE FORGETFUL, ON RA SATTING >90, TELE- SB/NSR HIGH 50'S-LOW 60'S. PT DOES NOT C/O PAIN, SOB, OR N/V. PT IS MAKING GOOD URINE AND DOES NOT COMPLAIN OF ANY PAIN DUIRNG URINATION. PT CURRENTLY NPO BUT WILL HAVE MORNING NURSE CLARIFY ORDERS WITH MD THIS MORNING. OTHERWISE NO ACUTE EVENTS OVERNIGHT, PT VITALS HAVE BEEN STABLE NO EPISODES OF HYPOTENSION. PT CALL LIGHT AND BELONGINGS WITHIN REACH.
[2021-06-08] MEDS ORDERED: NITR100CA PO (13:05)
--- NOTE | 2021-06-08 15:20 | NUR ---
DISCHARGE SUMMARY PT DISCHARGED TO HOME. PT LEFT ROOM AT 1508 VIA WHEELCHAIR WITH CYTOGENETIC TECHNICIAN ESCORT WITH GRANDDAUGHTER PRESENT. ALL DISCHARGE TEACHING COMPLETED OVER THE PHONE WITH PT'S DAUGHTER, ALL QUESTIONS ANSWERED. PT'S GRANDDAUGHTER AGREES TO ENERGY AND CONSERVATION TECHNICIAN PRESCRIPTION FROM PHARMACY TONIGHT. IV DC'D AND BELONGINGS RETURNED
== END 2021-06-08 15:20 | disposition home or self-care (01) ==
LOC: ER 21:43 → MEDS 21:44 → ER 06-08 02:23 → MEDS 06-08 02:23
PROVIDERS: Emergency Medicine; Student in an Organized Health Care Education/Training Program; ADMIT Internal Medicine
DX: G92.8 Other toxic encephalopathy (principal); K74.60 Unspecified cirrhosis of liver; D61.818 Other pancytopenia; N39.0 Urinary tract infection, site not specified; Z88.0 Allergy status to penicillin; Z88.2 Allergy status to sulfonamides; Z88.8 Allergy status to other drugs, medicaments and biological substances; Z88.6 Allergy status to analgesic agent; Z88.1 Allergy status to other antibiotic agents; Z88.5 Allergy status to narcotic agent; Z91.013 Allergy to seafood; Z66 Do not resuscitate; Z20.822 Contact with and (suspected) exposure to COVID-19
CPT/HCPCS: 0241U; 36415; 70450; 71045; 80053; 81001; 82140; 82947; 83605; 85025; 93005; 93010; A9270; G0480; J0696; J7030

== ENCOUNTER 2022-03-09 02:12 | Inpatient (IN) | payer OTHER ==
[~2022-03-09] VITALS: Ht 170.2 cm; Wt 70.8 kg
[~2022-03-09 02:12] MED LIST changes: +NITR100CA PO
[2022-03-09 02:32] LABS: BASOPHILS ABSOLUTE AUTO 0.01 K/mm3 (0.00-0.23); BASOPHILS PERCENT AUTO 0 % (0-2); EOSINOPHILS ABSOLUTE AUTO 0.07 K/mm3 (0.00-0.68); EOSINOPHILS PERCENT AUTO 3 % (0-6); Hematocrit 22.9 % (33.0-51.0); Hemoglobin 7.4 g/dL (11.5-16.0); IMMATURE GRAN ABSOLUTE AUTO 0.01 K/mm3 (0.00-0.10); IMMATURE GRAN PERCENT AUTO 0 % (0-1); LYMPHOCYTES ABSOLUTE AUTO 0.79 K/mm3 (0.84-5.20); LYMPHOCYTES PERCENT AUTO 29 % (21-46); MONOCYTES ABSOLUTE AUTO 0.26 K/mm3 (0.16-1.47); MONOCYTES PERCENT AUTO 10 % (4-13); Mean Corpuscular HGB 30.1 pg (26.0-34.0); Mean Corpuscular HGB Conc 32.3 g/dL (31.5-36.5); Mean Corpuscular Volume 93 fL (80-100); Mean Platelet Volume 10.3 fL (9.1-12.4); NEUTROPHILS ABSOLUTE AUTO 1.55 K/mm3 (1.96-9.15); NEUTROPHILS PERCENT AUTO 58 % (41-73); Platelet Count 117 K/mm3 (150-400); RDW Coefficient Variation 13.7 % (11.7-14.2); RDW Standard Deviation 46.5 fL (35.1-46.3); Red Blood Cell Count 2.46 M/mm3 (3.80-5.20); White Blood Cell Count 2.69 K/mm3 (4.00-11.30)
[2022-03-09 02:50] LABS: Albumin, Blood 2.6 g/dL (3.4-5.0); Albumin/Globulin Ratio 0.7 (0.8-1.8); Bilirubin, Total 0.9 mg/dL (0.1-1.0); Bun/Creatinine Ratio 31.8 (12.0-20.0); Calcium, Blood 8.5 mg/dL (8.5-10.1); Creatinine, Blood 1.07 mg/dL (0.40-1.00); Globulin, Blood 3.5 g/dL (2.2-4.0); Potassium, Blood 4.3 mmol/L (3.5-5.5); Total Protein, Blood 6.1 g/dL (6.4-8.2)
[2022-03-09 03:10] LABS: Source, Urine Straight Cath
[2022-03-09 03:12] LABS: Influenza A, PCR NEGATIVE (NEGATIVE); Influenza B, PCR NEGATIVE (NEGATIVE); Resp Syncytial Virus, PCR NEGATIVE (NEGATIVE); SARS-Cov-2 (COVID-19) PCR, MMC NEGATIVE (NEGATIVE)
[2022-03-09 03:12] LABS: Bilirubin, Urine Neg (Neg); Blood, Urine 2+ (Neg); Glucose Qualitative, Urine Neg (Neg); Ketones, Urine Neg (Neg); Leukocyte Esterase, Urine 3+ (Neg); Nitrite, Urine Neg (Neg); Protein, Urine 1+ (Neg); Specific Gravity, Urine 1.015 (1.003-1.022); Urobilinogen, Urine NORM (Normal)
[2022-03-09 03:20] LABS: Appearance, Urine Hazy (Clear); Bacteria Many /hpf; Color, Urine Yellow (P-Yellow); Red Blood Cells, Urine 0-2 /hpf (0-2); Squamous Epithelial Cells Rare /hpf (Few); White Blood Cells, Urine TNTC /hpf (0-5)
[2022-03-09 05:19] LABS: Percent Saturation 5.8 % (15.0-50.0)
[2022-03-09 09:06] LABS: Hematocrit 21.9 % (33.0-51.0); Hemoglobin 6.9 g/dL (11.5-16.0)
--- NOTE | 2022-03-09 10:07 | NUR ---
PT ADMITTED TO ICU AT 0745 FROM ER FOR HEPATIC ENCEPHALOPATHY. PT SLEEPING, AWAKENS TO VOICE/TOUCH, OPENS EYES. MOANS, DOES NOT FOLLOW COMMANDS, APPEARED TO ASK FOR "YARI" SEVERAL TIMES. PT INCONTINENT OF STOOL AND URINE; CLEANED. PUREWICK REMOVED IT WAS COVERED IN STOOL. BRUSING NOTED TO LEFT FOREARM; DAUGHTER STATES IT WAS FROM EMS TRANSFER. PT WARM AND FLUSHED, TEMP 99.0.
[2022-03-09 12:39] LABS: Source, Urine Foley catheter
--- NOTE | 2022-03-09 12:40 | NUR ---
SANTIAGO TEMP PROBE 16F PLACED, PT OBDULIA WELL. RECTAL TUBE PLACED FOR LACTULOSE ENEMA, PT WAS NOT RETAINING LACTULOSE PRIOR. PT'S DAUGHTER WAS EDUCATED ABOUT RECTAL TUBE THIS AM. PT REMAINS CONFUSED, NON VERBAL OTHER THAN MOANS.
[2022-03-09 12:51] LABS: Appearance, Urine Cloudy (Clear); Bilirubin, Urine Neg (Neg); Blood, Urine 1+ (Neg); Color, Urine Yellow (P-Yellow); Glucose Qualitative, Urine Neg (Neg); Ketones, Urine Neg (Neg); Leukocyte Esterase, Urine 3+ (Neg); Nitrite, Urine Neg (Neg); Protein, Urine 1+ (Neg); Specific Gravity, Urine 1.015 (1.003-1.022); Urobilinogen, Urine NORM (Normal)
[2022-03-09 13:24] LABS: White Blood Cells, Urine TNTC /hpf (0-5)
[2022-03-09 13:25] LABS: Bacteria Many /hpf; Squamous Epithelial Cells Not Seen /hpf (Few); Transitional Epithelial Cells Rare /hpf (0-Rare)
[2022-03-09 14:49] LABS: Hematocrit 23.4 % (33.0-51.0); Hemoglobin 7.1 g/dL (11.5-16.0)
--- NOTE | 2022-03-09 18:31 | NUR ---
PT MORE AWAKE, SMILES, ANSWERS SOME SIMPLE QUESTIONS VERY SLOWLY, REMAINS CONFUSED, ABLE TO FOLLOW SIMPLE COMMANDS, ABLE TO SWALLOW LIQUIDS SAFELY. LACTULOSE CHANGED TO PO. DAUGHTER AT BEDSIDE.
--- NOTE | 2022-03-09 19:58 | NUR ---
ASSUMPTION OF CARE PT IS ALERT AND ABLE TO FOLLOW SIMPLE COMMANDS. SHE DOES NOT ANSWER ALL OF MY QUESTIONS VERBALLY AND CAN NOT TELL ME WHERE SHE IS AT THIS TIME. I REORIENTED THE PATIENT APPROPRIATE. SHE IS NSR ON THE MONITOR, BP WNL. SHE HAS A SANTIAGO CATHETER AND RECTAL TUBE IN PLACE. NO S/S OF ACUTE DISTRESS NOTED AT TIME OF ASSUMPTION OF CARE.
--- NOTE | 2022-03-09 22:36 | NUR ---
SPOKE TO PT DAUGHTER AND GAVE HER AN UPDATE ON PT CONDITION. DAUGHTER VOICED APPRECIATION FOR CARE PROVIDED.
[2022-03-10 04:37] LABS: BASOPHILS ABSOLUTE AUTO 0.01 K/mm3 (0.00-0.23); BASOPHILS PERCENT AUTO 0 % (0-2); EOSINOPHILS ABSOLUTE AUTO 0.07 K/mm3 (0.00-0.68); EOSINOPHILS PERCENT AUTO 2 % (0-6); Hematocrit 22.1 % (33.0-51.0); IMMATURE GRAN ABSOLUTE AUTO 0.01 K/mm3 (0.00-0.10); IMMATURE GRAN PERCENT AUTO 0 % (0-1); LYMPHOCYTES ABSOLUTE AUTO 0.72 K/mm3 (0.84-5.20); LYMPHOCYTES PERCENT AUTO 20 % (21-46); MONOCYTES ABSOLUTE AUTO 0.33 K/mm3 (0.16-1.47); MONOCYTES PERCENT AUTO 9 % (4-13); Mean Corpuscular HGB 29.3 pg (26.0-34.0); Mean Corpuscular HGB Conc 31.7 g/dL (31.5-36.5); Mean Corpuscular Volume 93 fL (80-100); Mean Platelet Volume 10.1 fL (9.1-12.4); NEUTROPHILS ABSOLUTE AUTO 2.42 K/mm3 (1.96-9.15); NEUTROPHILS PERCENT AUTO 68 % (41-73); Platelet Count 110 K/mm3 (150-400); RDW Coefficient Variation 13.6 % (11.7-14.2); RDW Standard Deviation 46.4 fL (35.1-46.3); Red Blood Cell Count 2.39 M/mm3 (3.80-5.20); White Blood Cell Count 3.56 K/mm3 (4.00-11.30)
[2022-03-10 04:57] LABS: Albumin, Blood 2.6 g/dL (3.4-5.0); Albumin/Globulin Ratio 0.8 (0.8-1.8); Bilirubin, Total 1.5 mg/dL (0.1-1.0); Bun/Creatinine Ratio 27.1 (12.0-20.0); Calcium, Blood 8.4 mg/dL (8.5-10.1); Creatinine, Blood 1.07 mg/dL (0.40-1.00); Globulin, Blood 3.2 g/dL (2.2-4.0); Magnesium, Blood 1.8 mg/dL (1.6-2.4); Phosphorus, Blood 2.8 mg/dL (2.5-4.9); Total Protein, Blood 5.8 g/dL (6.4-8.2)
--- NOTE | 2022-03-10 05:22 | NUR ---
SHIFT SUMMERY PT HAS BECOME MORE ALERT THROUGHOUT THE NIGHT. SHE IS ABLE TO FOLLOW COMMANDS AND CARRY ON A CONVERSATION. SHE IS CONFUSED BUT PLEASANT. SHE IS ORIENTED TO HERSELF ONLY AND RESTLESS AT TIMES. SHE WAS ABLE TO TELL ME SHE WAS IN THE HOSPITAL WELL. SHE IS EASILY REDIRECTABLE. HR HAS BEEN SR ON THE MONITOR. BP WNL. OXYGEN SAT >95% ON ROOM AIR. SANTIAGO CATH INTACT AND DRAINING CLOUDY YELLOW URINE. SKIN IS BRUISED BUT OTHERWISE INTACT. SHE DID PULL OUT ONE OF HER IV'S PICKING AT THINGS. SHE HAS HAD NO ACUTE DISTRESS OVERNIGHT. SHE WAS ABLE TO TAKE PO LACTULOSE WITHOUT DIFFICULTY.
--- NOTE | 2022-03-10 09:56 | NUR ---
Pt. is sitting up in a chair and welcomes my visit. Pt. is pleasant but displays evidence of confusion. Attempted to establish rapport, but conversation is pretty one sided. Pt. welcomed prayer with a smile. Prayed with Pt. Pt. verbalized gratitude for the spiritual care visit.
--- NOTE | 2022-03-10 10:08 | NUR ---
PT UP TO CHAIR WITH OT THIS AM. A/O TO PERSON AND PLACE, KNOWS SHE IS IN A HOSPITAL NOT SURE WHICH ONE. FOLLOWS COMMANDS WELL. NO SIGN OF DISTRESS.
--- NOTE | 2022-03-10 17:40 | NUR ---
SUMMARY PT A/O TO PERSON, FAMILY, AND KNOWS SHE IS IN A HOSPITAL. PT GOT OOB TO CHAIR AND AMBULATED WITH PHYSICAL THERAPY TODAY. TOLERATED WELL WITH GAIT BELT AND FWW. OTHERWISE UNEVENTFUL DAY.
--- NOTE | 2022-03-10 19:15 | NUR ---
ASSUMED CARE OF PT, SHE IS RESTING IN BED WITH CALL LIGHT NEAR. NO C/O PAIN CURRENTLY. ALERT TO PERSON AND PLACE, KNOWS THAT TOMMY JUST PASSED BUT UNABLE TO GIVE ME THE MONTH AND YEAR. PT IS CURRENTLY PCU STATUS.
[2022-03-11 03:37] LABS: BASOPHILS ABSOLUTE AUTO 0.01 K/mm3 (0.00-0.23); BASOPHILS PERCENT AUTO 0 % (0-2); EOSINOPHILS ABSOLUTE AUTO 0.07 K/mm3 (0.00-0.68); EOSINOPHILS PERCENT AUTO 3 % (0-6); Hematocrit 20.5 % (33.0-51.0); Hemoglobin 6.5 g/dL (11.5-16.0); IMMATURE GRAN PERCENT AUTO 0 % (0-1); LYMPHOCYTES ABSOLUTE AUTO 0.51 K/mm3 (0.84-5.20); LYMPHOCYTES PERCENT AUTO 22 % (21-46); MONOCYTES ABSOLUTE AUTO 0.25 K/mm3 (0.16-1.47); MONOCYTES PERCENT AUTO 11 % (4-13); Mean Corpuscular HGB 29.5 pg (26.0-34.0); Mean Corpuscular HGB Conc 31.7 g/dL (31.5-36.5); Mean Corpuscular Volume 93 fL (80-100); Mean Platelet Volume 9.7 fL (9.1-12.4); NEUTROPHILS ABSOLUTE AUTO 1.47 K/mm3 (1.96-9.15); NEUTROPHILS PERCENT AUTO 64 % (41-73); Platelet Count 79 K/mm3 (150-400); RDW Coefficient Variation 13.6 % (11.7-14.2); RDW Standard Deviation 46.4 fL (35.1-46.3); White Blood Cell Count 2.31 K/mm3 (4.00-11.30)
[2022-03-11 03:59] LABS: Albumin, Blood 2.4 g/dL (3.4-5.0); Albumin/Globulin Ratio 0.8 (0.8-1.8); Bilirubin, Total 1.4 mg/dL (0.1-1.0); Bun/Creatinine Ratio 28.3 (12.0-20.0); Calcium, Blood 8.2 mg/dL (8.5-10.1); Creatinine, Blood 0.92 mg/dL (0.40-1.00); Globulin, Blood 3.1 g/dL (2.2-4.0); Phosphorus, Blood 2.1 mg/dL (2.5-4.9); Potassium, Blood 3.5 mmol/L (3.5-5.5); Total Protein, Blood 5.5 g/dL (6.4-8.2)
--- NOTE | 2022-03-11 05:59 | NUR ---
Shift summary: This morning pt's labs were: Hgb 6.5, phos 2.1 and K 3.5. 1 unit PRBC ordered. Neuro: A&O 2-3. She knows that it was just jessica but was unable to tell me the month. When in the room she asks simliar questions multiple times. Pt able to get up to BSC with 1 person assist, gait belt and FWW. Cardiac: SR with HR 70-90. BP WNL. Resp: No C/O SOB, lung sounds clear/diminished. O2 sats 98% on RA GI/: Clear liquid diet tolerating well. Pt was up to BSC x3 with dark liquid stool. Baptiste still intact draining clear yellow urine.
--- NOTE | 2022-03-11 08:00 | NUR ---
Assumed care of pt at 0700. Plan is for pt to receive 1 unit PRBCs and K-Phos from pharmacy. Pt on RA and resting comfortably in bed, A&Ox2 which appears to be at baseline mental status.
--- NOTE | 2022-03-11 09:10 | NUR ---
1 unit of PRBC started. Supriya VILLA verified that consent was on the chart and that the proper unit was admin, initial rate started at 50 ml/hr.
--- NOTE | 2022-03-11 09:50 | NUR ---
Pt tolerated 1 unit PRBC infusion, titrated up to 125 ml/hr.
--- NOTE | 2022-03-11 15:30 | NUR ---
PATIENT TRANSFERED FROM ICU- 6 THIS AFTERNOON. SHE WAS ADMITTED ON Feb FOR HEPATIC ENCEPHALOPATHY. SHE BECAME ANEMIC AND WAS GIVEN ONE UNIT OF PRC TODAY. LAB JUST CAME TO DRAW FOR RECHECK OF HGB. SHE HAS A HISTROY OF DEMENTIA, GI BLD. REPORTED HX OF CVA, BUT DAUGHTER BELIEVES THAT IS FROM THIS ADMISSION-BEFORE THEY KNEW THE ACTUAL DX. SHE DOES NOT REMEMBER ANY OTHER CVA EVER IN MEDICAL PAST. PATIENT IS ALERT- ORIENTATED X 2-3, PLEASANTLY CONFUSED. SHE IS AN ASSIST X 1 WITH FWW. WILL USE BSC. HAS SANTIAGO CATH IN PLACE FROM ICU- PROBABLY FOR I & O. PATIENT IN INCONTINENT. 2 IV'S ARE PRESENT, 20 G IN L FA, 18 G IN RIGHT FA. DAUGHTER IS PRESENT WITH PATIENT AT BEDSIDE.(LIVES WITH DAUGHTER) PATIENT DENIES PAIN. BS ACTIVE AND LOUD. HEART TONES QUIET. EDEMA PRESENT IN EXTREMITIES -NON PITTING.
[2022-03-11 15:42] LABS: Hematocrit 25.6 % (33.0-51.0); Hemoglobin 8.3 g/dL (11.5-16.0)
--- NOTE | 2022-03-11 18:41 | NUR ---
SEE NURSING NOTE- FOR SCOPE OF INFO. PATIENT ONLY RECENTLY CAME UP TO THE FLOOR FROM ICU-6. CHANGES SINCE TRANSFER: SANTIAGO IS DC'D AND A STRAIGHT CATH X 1 IS ORDERED TO COLLECT URINE FOR C & S. DENISE IS SALINE LOCKED. SHE HAD BM X 2.
[2022-03-12 05:09] LABS: BASOPHILS ABSOLUTE AUTO 0.01 K/mm3 (0.00-0.23); BASOPHILS PERCENT AUTO 1 % (0-2); EOSINOPHILS PERCENT AUTO 5 % (0-6); Hematocrit 22.4 % (33.0-51.0); Hemoglobin 7.1 g/dL (11.5-16.0); IMMATURE GRAN ABSOLUTE AUTO 0.01 K/mm3 (0.00-0.10); IMMATURE GRAN PERCENT AUTO 1 % (0-1); LYMPHOCYTES ABSOLUTE AUTO 0.53 K/mm3 (0.84-5.20); LYMPHOCYTES PERCENT AUTO 27 % (21-46); MONOCYTES ABSOLUTE AUTO 0.18 K/mm3 (0.16-1.47); MONOCYTES PERCENT AUTO 9 % (4-13); Mean Corpuscular HGB 29.3 pg (26.0-34.0); Mean Corpuscular HGB Conc 31.7 g/dL (31.5-36.5); Mean Corpuscular Volume 93 fL (80-100); Mean Platelet Volume 10.5 fL (9.1-12.4); NEUTROPHILS ABSOLUTE AUTO 1.13 K/mm3 (1.96-9.15); NEUTROPHILS PERCENT AUTO 58 % (41-73); Platelet Count 83 K/mm3 (150-400); RDW Coefficient Variation 13.5 % (11.7-14.2); RDW Standard Deviation 45.8 fL (35.1-46.3); Red Blood Cell Count 2.42 M/mm3 (3.80-5.20); White Blood Cell Count 1.96 K/mm3 (4.00-11.30)
[2022-03-12 05:33] LABS: Albumin, Blood 2.4 g/dL (3.4-5.0); Anion Gap 6 mmol/L (6-16); Blood Urea Nitrogen 21 mg/dL (8-24); Bun/Creatinine Ratio 20.8 (12.0-20.0); CO2, Blood 21 mmol/L (21-32); Chloride, Blood 117 mmol/L (98-108); Creatinine, Blood 1.01 mg/dL (0.40-1.00); Glomerular Filtration Rate 57 (60-); Glucose, Blood 89 mg/dL (70-99); Phosphorus, Blood 2.5 mg/dL (2.5-4.9); Potassium, Blood 3.6 mmol/L (3.5-5.5); Sodium, Blood 144 mmol/L (136-145)
[2022-03-12 06:47] LABS: Source, Urine Straight Cath
[2022-03-12 07:00] LABS: Bilirubin, Urine Neg (Neg); Blood, Urine 3+ (Neg); Glucose Qualitative, Urine Neg (Neg); Ketones, Urine Neg (Neg); Leukocyte Esterase, Urine 3+ (Neg); Nitrite, Urine Neg (Neg); Protein, Urine 2+ (Neg); Urobilinogen, Urine NORM (Normal)
[2022-03-12 07:07] LABS: Appearance, Urine Hazy (Clear); Color, Urine Yellow (P-Yellow)
[2022-03-12 07:09] LABS: White Blood Cells, Urine TNTC /hpf (0-5)
[2022-03-12 07:11] LABS: Bacteria Many /hpf; Red Blood Cells, Urine 0-2 /hpf (0-2); Squamous Epithelial Cells Many /hpf (Few)
--- NOTE | 2022-03-12 15:24 | NUR ---
Met with pt and daughter ROSY Kessler. Victoria has admittedly had some edyta experiences with Home Health in the past; remembers feeling "invaded" by multiple disciplines coming to see pt frequently with no set schedule. She stopped accepting assistance from HH several hospitalizations ago. However, after both Dr. Alicea and this RN talked with Victoria about the differences between the HH and Hospice philosophies. She is agreeable to this, and she chose [facility] after receiving "pt choice" letter.
--- NOTE | 2022-03-12 17:45 | NUR ---
SHIFT SUMMARY: PT A/O X 3, STANDBY ASSIST WITH WALKER AND GB. PT TOLERATING PO FULL LIQUID DIET. PT HAS HAD 2 LIQUID BM'S BUT MIXED WITH URINE. UNABLE TO OBTAIN GUAIC. STOOL HAS HAD NO VISIBLE BLOOD. STOOL IS GREENISH BROWN COLORED. PT DENIES ABD PAIN. SHE HAS HAD NO COMPLAINTS TODAY EXCEPT WHEN WANTING DIET CHANGED FROM CLEAR LIQUIDS THIS AM AND WHEN SHE HAS TO TAKE LACTULOSE. SHE HAS BEEN COMPLIANT WITH TAKING LACTULOSE. SHE HAS BEEN VERY PLEASANT AND COOPERATIVE WITH CARE.
--- NOTE | 2022-03-13 04:22 | NUR ---
SHIFT SUMMARY PATIENT HAD NO ACUTE CHANGES. AXOX 3 AND FORGETFUL AT TIMES REPEATING QUESTIONS ALREADY ANSWERED. ONE ASSIST FWW TO BSC. PIV REMAINS INTACT. DENIES PAIN, SOB, AND N/V. VSS/AFEBRILE. ON LACTULOSE. COOPERATIVE WITH CARE. CALL LIGHT IN REACH. BED IN LOWEST POSITION. WILL CONTINUE TO MONITOR UNTIL DAY SHIFT NURSE ASSUMES CARE.
[2022-03-13 06:18] LABS: BASOPHILS ABSOLUTE AUTO 0.01 K/mm3 (0.00-0.23); BASOPHILS PERCENT AUTO 1 % (0-2); EOSINOPHILS ABSOLUTE AUTO 0.07 K/mm3 (0.00-0.68); EOSINOPHILS PERCENT AUTO 4 % (0-6); Hematocrit 21.7 % (33.0-51.0); IMMATURE GRAN PERCENT AUTO 0 % (0-1); LYMPHOCYTES ABSOLUTE AUTO 0.57 K/mm3 (0.84-5.20); LYMPHOCYTES PERCENT AUTO 31 % (21-46); MONOCYTES ABSOLUTE AUTO 0.23 K/mm3 (0.16-1.47); MONOCYTES PERCENT AUTO 12 % (4-13); Mean Corpuscular HGB 29.5 pg (26.0-34.0); Mean Corpuscular HGB Conc 32.3 g/dL (31.5-36.5); Mean Corpuscular Volume 92 fL (80-100); Mean Platelet Volume 9.8 fL (9.1-12.4); NEUTROPHILS ABSOLUTE AUTO 0.97 K/mm3 (1.96-9.15); NEUTROPHILS PERCENT AUTO 53 % (41-73); Platelet Count 85 K/mm3 (150-400); RDW Coefficient Variation 13.3 % (11.7-14.2); RDW Standard Deviation 45.1 fL (35.1-46.3); Red Blood Cell Count 2.37 M/mm3 (3.80-5.20); White Blood Cell Count 1.85 K/mm3 (4.00-11.30)
[2022-03-13 06:33] LABS: Albumin, Blood 2.3 g/dL (3.4-5.0); Anion Gap 5 mmol/L (6-16); Blood Urea Nitrogen 23 mg/dL (8-24); Bun/Creatinine Ratio 24.1 (12.0-20.0); CO2, Blood 20 mmol/L (21-32); Calcium, Blood 8.1 mg/dL (8.5-10.1); Chloride, Blood 116 mmol/L (98-108); Creatinine, Blood 0.95 mg/dL (0.40-1.00); Glomerular Filtration Rate 61 (60-); Glucose, Blood 85 mg/dL (70-99); Phosphorus, Blood 2.5 mg/dL (2.5-4.9); Potassium, Blood 4.1 mmol/L (3.5-5.5); Sodium, Blood 141 mmol/L (136-145)
--- NOTE | 2022-03-13 18:29 | NUR ---
SHIFT SUMMARY: PT A/O X 3, STANDBY ASSIST TO BSC. PT CURRENTLY RECEIVING 1 UNIT PRBC'S AND TOLERATING WELL. PT HAS HAD NO REPORTS OF PAIN OR NAUSEA TODAY. NO SIGNS OF BLOOD IN BM. PLAN IS TO DC TOMORROW IN THE AM [facility] WEDN[facility]. FAMILY AWARE AND AGREE WITH PLAN. PT WAS TEARFUL AT TIMES TODAY BUT APPEARED TO BE COPING WELL. PT SMILING WITH INTERACTION AND WHEN DAUGHTER PRESENT.
--- NOTE | 2022-03-14 06:34 | NUR ---
Shift Summary Pt AOx2-3, very forgetful and frequently asking the same questions. Rcvd 1 unit PRBC successfully and they were tolerated well. Pt took PO lactulose, 30 mg. RFA IV started slightly leaking early in the shift. Pt was able to rcv IV Rocephin and 80% of their IV protonix. During protonix administration her IV leaked and became sensitive and was removed. Plan is for pt to go home today so I did not replace her IV. Pt pivots to BSC, calls appropriatly. Pt had one soft BP with systolic less than 90, took BP one hour later on other arm and systolic was 109. No acute events, pleasant and cooperative with care.
[2022-03-14] MEDS ORDERED: LEVO750 PO (11:56)
--- NOTE | 2022-03-14 16:10 | NUR ---
PT DISCHARGED HOME WITH HOSPICE. DC INSTRUCTIONS AND EDUCATION MATERIAL EXPLAINED TO PT AND TONYA. NO NEW QUESTIONS OR CONCERNS. PT'S IV REMOVED BY PORTER BATH NURSE AT THE END OF SHIFT. PT HELPED TO GET DRESSED AND ALL BELONGINGS SENT HOME WITH PT. PT TAKEN BY WHEELCHAIR TO WAITING VEHICLE.
== END 2022-03-14 15:08 | disposition hospice, home (50) | DRG 441 ==
LOC: ER 02:12 → ERHOLD 04:50 → ICUE 07:45 → MEDS 03-11 15:13
PROVIDERS: Family Medicine; Student in an Organized Health Care Education/Training Program; ADMIT Family Medicine
PROC: 3E02340 Introduction of Influenza Vaccine into Muscle, Percutaneous Approach (ICD-10-PCS; 2022-03-09)
PROC: 3E03329 Introduction of Other Anti-infective into Peripheral Vein, Percutaneous Approach (ICD-10-PCS; 2022-03-09)
PROC: 30233N1 Transfusion of Nonautologous Red Blood Cells into Peripheral Vein, Percutaneous Approach (ICD-10-PCS; principal; 2022-03-11)
DX: K76.82 Hepatic encephalopathy (principal); A41.9 Sepsis, unspecified organism; R65.20 Severe sepsis without septic shock; D61.818 Other pancytopenia; E72.20 Disorder of urea cycle metabolism, unspecified; N39.0 Urinary tract infection, site not specified; K76.6 Portal hypertension; E87.0 Hyperosmolality and hypernatremia; K74.69 Other cirrhosis of liver; Z66 Do not resuscitate; Z51.5 Encounter for palliative care; E78.5 Hyperlipidemia, unspecified; K21.9 Gastro-esophageal reflux disease without esophagitis; F41.9 Anxiety disorder, unspecified; F32.A Depression, unspecified; M06.9 Rheumatoid arthritis, unspecified; F03.90 Unspecified dementia, unspecified severity, without behavioral disturbance, psychotic disturbance, mood disturbance, and anxiety; I27.20 Pulmonary hypertension, unspecified; K31.819 Angiodysplasia of stomach and duodenum without bleeding; D72.819 Decreased white blood cell count, unspecified; I12.9 Hypertensive chronic kidney disease with stage 1 through stage 4 chronic kidney disease, or unspecified chronic kidney disease; M19.90 Unspecified osteoarthritis, unspecified site; N18.30 Chronic kidney disease, stage 3 unspecified; D63.1 Anemia in chronic kidney disease; R94.5 Abnormal results of liver function studies; M79.7 Fibromyalgia; I35.0 Nonrheumatic aortic (valve) stenosis; B95.2 Enterococcus as the cause of diseases classified elsewhere; Z20.822 Contact with and (suspected) exposure to COVID-19; Z88.0 Allergy status to penicillin; Z88.2 Allergy status to sulfonamides; Z88.5 Allergy status to narcotic agent; Z88.1 Allergy status to other antibiotic agents; Z88.8 Allergy status to other drugs, medicaments and biological substances; Z91.013 Allergy to seafood; Z79.899 Other long term (current) drug therapy; Z87.19 Personal history of other diseases of the digestive system; Z23 Encounter for immunization; Z98.890 Other specified postprocedural states; Z90.710 Acquired absence of both cervix and uterus; Z86.73 Personal history of transient ischemic attack (TIA), and cerebral infarction without residual deficits
CPT/HCPCS: 0241U; 36415; 36430; 51701; 70450; 71045; 80053; 80069; 81001; 82140; 82607; 82728; 82746; 83540; 83550; 83605; 83735; 84100; 85014; 85018; 85025; 86850; 86900; 86901; 86923; 87040; 87077; 87086; 87186; 90686; 92610; 93005; 93010; 96374-59; 96375-59; 97110; 97116; 97162; 97166; 97530; 97535; 99285-25; A9270; C9113; J0696; J2765; J3475; J7030; J7050; J7060; P9016

== ENCOUNTER 2022-07-03 16:04 | Emergency (ER) | payer OTHER ==
[~2022-07-03] VITALS: Ht 165.1 cm; Wt 54.4 kg
[~2022-07-03 16:04] MED LIST changes: +LEVO750 PO
[2022-07-03 16:56] LABS: BASOPHILS ABSOLUTE AUTO 0.02 K/mm3 (0.00-0.23); BASOPHILS PERCENT AUTO 1 % (0-2); EOSINOPHILS ABSOLUTE AUTO 0.09 K/mm3 (0.00-0.68); EOSINOPHILS PERCENT AUTO 2 % (0-6); Hematocrit 26.6 % (33.0-51.0); Hemoglobin 8.4 g/dL (11.5-16.0); IMMATURE GRAN ABSOLUTE AUTO 0.01 K/mm3 (0.00-0.10); IMMATURE GRAN PERCENT AUTO 0 % (0-1); LYMPHOCYTES ABSOLUTE AUTO 0.66 K/mm3 (0.84-5.20); LYMPHOCYTES PERCENT AUTO 17 % (21-46); MONOCYTES ABSOLUTE AUTO 0.38 K/mm3 (0.16-1.47); MONOCYTES PERCENT AUTO 10 % (4-13); Mean Corpuscular HGB 29.3 pg (26.0-34.0); Mean Corpuscular HGB Conc 31.6 g/dL (31.5-36.5); Mean Corpuscular Volume 93 fL (80-100); NEUTROPHILS ABSOLUTE AUTO 2.75 K/mm3 (1.96-9.15); NEUTROPHILS PERCENT AUTO 70 % (41-73); Platelet Count 124 K/mm3 (150-400); RDW Coefficient Variation 14.6 % (11.7-14.2); RDW Standard Deviation 49.1 fL (35.1-46.3); Red Blood Cell Count 2.87 M/mm3 (3.80-5.20); White Blood Cell Count 3.91 K/mm3 (4.00-11.30)
[2022-07-03 17:14] LABS: Albumin/Globulin Ratio 0.8 (0.8-1.8); Bilirubin, Direct 0.5 mg/dL (0.0-0.3); Bilirubin, Indirect 0.7 mg/dL (0.1-0.7); Bilirubin, Total 1.2 mg/dL (0.1-1.0); Bun/Creatinine Ratio 41.3 (12.0-20.0); Calcium, Blood 9.5 mg/dL (8.5-10.1); Creatinine, Blood 0.97 mg/dL (0.40-1.00); Globulin, Blood 3.9 g/dL (2.2-4.0); Potassium, Blood 4.5 mmol/L (3.5-5.5); Total Protein, Blood 6.9 g/dL (6.4-8.2)
[2022-07-03] MEDS ORDERED: Reglan10 MG PO ×2 (18:46→18:47)
[2022-07-03 19:45] LABS: Source, Urine Straight Cath
[2022-07-03 19:48] LABS: Appearance, Urine Clear (Clear); Bilirubin, Urine Neg (Neg); Blood, Urine 1+ (Neg); Color, Urine Yellow (P-Yellow); Glucose Qualitative, Urine Neg (Neg); Ketones, Urine Neg (Neg); Leukocyte Esterase, Urine Neg (Neg); Nitrite, Urine Neg (Neg); Protein, Urine Neg (Neg); Specific Gravity, Urine 1.025 (1.003-1.022); Urobilinogen, Urine NORM (Normal)
[2022-07-03 20:00] VITALS: BP 127/56
[2022-07-03 20:39] LABS: Bacteria Not Seen /hpf; Red Blood Cells, Urine 0-2 /hpf (0-2); Squamous Epithelial Cells Rare /hpf (Few); White Blood Cells, Urine Not Seen /hpf (0-5)
== END 2022-07-03 21:32 | disposition home or self-care (01) ==
LOC: ER 16:04
PROVIDERS: Physician Assistant; Student in an Organized Health Care Education/Training Program
DX: N39.0 Urinary tract infection, site not specified (principal); F03.90 Unspecified dementia, unspecified severity, without behavioral disturbance, psychotic disturbance, mood disturbance, and anxiety; I27.20 Pulmonary hypertension, unspecified; K21.9 Gastro-esophageal reflux disease without esophagitis; M79.7 Fibromyalgia; E78.5 Hyperlipidemia, unspecified; Z88.0 Allergy status to penicillin; Z91.013 Allergy to seafood; Z88.2 Allergy status to sulfonamides; Z88.5 Allergy status to narcotic agent; Z88.1 Allergy status to other antibiotic agents; Z88.8 Allergy status to other drugs, medicaments and biological substances; Z79.899 Other long term (current) drug therapy
CPT/HCPCS: 36415; 80048; 80076; 81001; 81003; 82140; 85025; 99283

== ENCOUNTER → 2022-07-08 | Outpatient (CLI) | payer OTHER ==
[~2022-07-08] MED LIST changes: +Reglan10 MG PO
[2022-07-08 15:04] LABS: Source, Urine Voided
[2022-07-08 16:38] LABS: Appearance, Urine Clear (Clear); Bilirubin, Urine Neg (Neg); Blood, Urine Neg (Neg); Color, Urine Yellow (P-Yellow); Glucose Qualitative, Urine Neg (Neg); Ketones, Urine Neg (Neg); Leukocyte Esterase, Urine Neg (Neg); Nitrite, Urine Neg (Neg); Protein, Urine Neg (Neg); Urobilinogen, Urine NORM (Normal)
== END | disposition home or self-care (01) ==
LOC: LAB 12:00 → LAB SHORT 12:00
PROVIDERS: Physician Assistant
DX: F44.89 Other dissociative and conversion disorders (principal); N39.0 Urinary tract infection, site not specified; R82.90 Unspecified abnormal findings in urine
CPT/HCPCS: 81003

== ENCOUNTER 2023-03-11 21:50 | Emergency (ER) | payer OTHER ==
[~2023-03-11] VITALS: Ht 160 cm; Wt 64.4 kg
[2023-03-11 22:47] LABS: BASOPHILS ABSOLUTE AUTO 0.01 K/mm3 (0.00-0.23); BASOPHILS PERCENT AUTO 0 % (0-2); EOSINOPHILS ABSOLUTE AUTO 0.07 K/mm3 (0.00-0.68); EOSINOPHILS PERCENT AUTO 2 % (0-6); Hematocrit 28.4 % (33.0-51.0); Hemoglobin 8.9 g/dL (11.5-16.0); IMMATURE GRAN ABSOLUTE AUTO 0.01 K/mm3 (0.00-0.10); IMMATURE GRAN PERCENT AUTO 0 % (0-1); LYMPHOCYTES ABSOLUTE AUTO 0.81 K/mm3 (0.84-5.20); LYMPHOCYTES PERCENT AUTO 25 % (21-46); MONOCYTES PERCENT AUTO 9 % (4-13); Mean Corpuscular HGB 29.3 pg (26.0-34.0); Mean Corpuscular HGB Conc 31.3 g/dL (31.5-36.5); Mean Corpuscular Volume 93 fL (80-100); Mean Platelet Volume 10.6 fL (9.1-12.4); NEUTROPHILS ABSOLUTE AUTO 2.01 K/mm3 (1.96-9.15); NEUTROPHILS PERCENT AUTO 63 % (41-73); Platelet Count 120 K/mm3 (150-400); RDW Coefficient Variation 14.6 % (11.7-14.2); RDW Standard Deviation 49.8 fL (35.1-46.3); Red Blood Cell Count 3.04 M/mm3 (3.80-5.20); White Blood Cell Count 3.21 K/mm3 (4.00-11.30)
[2023-03-11 23:07] LABS: Albumin, Blood 2.8 g/dL (3.4-5.0); Albumin/Globulin Ratio 0.8 (0.8-1.8); Bilirubin, Total 1.1 mg/dL (0.1-1.0); Bun/Creatinine Ratio 34.1 (12.0-20.0); Calcium, Blood 9.2 mg/dL (8.5-10.1); Creatinine, Blood 0.85 mg/dL (0.40-1.00); Globulin, Blood 3.7 g/dL (2.2-4.0); Potassium, Blood 4.4 mmol/L (3.5-5.5); Total Protein, Blood 6.5 g/dL (6.4-8.2)
[2023-03-11 23:19] LABS: Source, Urine Clean Catch
[2023-03-11 23:22] LABS: Bilirubin, Urine Neg (Neg); Blood, Urine 3+ (Neg); Glucose Qualitative, Urine Neg (Neg); Ketones, Urine Neg (Neg); Leukocyte Esterase, Urine 3+ (Neg); Nitrite, Urine Neg (Neg); Protein, Urine 1+ (Neg); Specific Gravity, Urine 1.025 (1.003-1.022); Urobilinogen, Urine NORM (Normal)
[2023-03-11 23:36] LABS: Appearance, Urine Hazy (Clear); Color, Urine Yellow (P-Yellow)
[2023-03-11 23:38] LABS: Bacteria Many /hpf; Squamous Epithelial Cells Few /hpf (Few); White Blood Cells, Urine TNTC /hpf (0-5)
[2023-03-12] MEDS ORDERED: CEPH250A PO (00:17)
[2023-03-12] MEDS ORDERED: CEPH500 PO (05:57)
[2023-03-12] MEDS ORDERED: LEVO750 PO (05:57)
[2023-03-12 06:00] VITALS: BP 112/47
== END 2023-03-12 06:05 | disposition home or self-care (01) ==
LOC: ER 21:50
PROVIDERS: Emergency Medicine
DX: K52.9 Noninfective gastroenteritis and colitis, unspecified (principal); N39.0 Urinary tract infection, site not specified; K80.20 Calculus of gallbladder without cholecystitis without obstruction; F03.90 Unspecified dementia, unspecified severity, without behavioral disturbance, psychotic disturbance, mood disturbance, and anxiety; K74.60 Unspecified cirrhosis of liver; K21.9 Gastro-esophageal reflux disease without esophagitis; M06.9 Rheumatoid arthritis, unspecified; I27.20 Pulmonary hypertension, unspecified; M79.7 Fibromyalgia; E78.5 Hyperlipidemia, unspecified; F32.A Depression, unspecified; F41.9 Anxiety disorder, unspecified; Z86.73 Personal history of transient ischemic attack (TIA), and cerebral infarction without residual deficits; Z88.0 Allergy status to penicillin; Z88.5 Allergy status to narcotic agent; Z88.2 Allergy status to sulfonamides; Z88.8 Allergy status to other drugs, medicaments and biological substances; Z91.041 Radiographic dye allergy status; Z79.899 Other long term (current) drug therapy
CPT/HCPCS: 74176; 80053; 81001; 83690; 84484; 85025; 87077; 87086; 87186; 93005; 93010; 99284-25; A9270; J0696

== ENCOUNTER 2023-09-02 16:23 | Emergency (ER) | payer OTHER ==
[~2023-09-02] VITALS: Ht 162.6 cm; Wt 54.4 kg
[~2023-09-02 16:23] MED LIST changes: +CEPH500 PO; +VANCOMYCIN HCL1 G1 IV
[2023-09-02 18:01] LABS: Source, Urine Straight Cath
[2023-09-02 18:06] LABS: Appearance, Urine Hazy (Clear); Bilirubin, Urine Neg (Neg); Blood, Urine Neg (Neg); Color, Urine Yellow (P-Yellow); Glucose Qualitative, Urine Neg (Neg); Ketones, Urine Neg (Neg); Leukocyte Esterase, Urine 3+ (Neg); Nitrite, Urine Neg (Neg); Protein, Urine Neg (Neg); Urobilinogen, Urine NORM (Normal)
[2023-09-02] MEDS ORDERED: Acetaminophen650 M1 PO (18:16)
[2023-09-02 18:18] LABS: International Normalized Ratio 1.23
[2023-09-02] MEDS ORDERED: MULTI-VITAMIN1 EAC2 PO (18:18)
[2023-09-02] MEDS ORDERED: ONDA4 PO (18:18)
[2023-09-02 18:19] LABS: BASOPHILS ABSOLUTE AUTO 0.02 K/mm3 (0.00-0.23); BASOPHILS PERCENT AUTO 1 % (0-2); EOSINOPHILS ABSOLUTE AUTO 0.16 K/mm3 (0.00-0.68); EOSINOPHILS PERCENT AUTO 4 % (0-6); Hematocrit 30.6 % (33.0-51.0); Hemoglobin 9.7 g/dL (11.5-16.0); IMMATURE GRAN ABSOLUTE AUTO 0.01 K/mm3 (0.00-0.10); IMMATURE GRAN PERCENT AUTO 0 % (0-1); LYMPHOCYTES ABSOLUTE AUTO 0.82 K/mm3 (0.84-5.20); LYMPHOCYTES PERCENT AUTO 21 % (21-46); MONOCYTES ABSOLUTE AUTO 0.48 K/mm3 (0.16-1.47); MONOCYTES PERCENT AUTO 12 % (4-13); Mean Corpuscular HGB 27.3 pg (26.0-34.0); Mean Corpuscular HGB Conc 31.7 g/dL (31.5-36.5); Mean Corpuscular Volume 86 fL (80-100); Mean Platelet Volume 9.7 fL (9.1-12.4); NEUTROPHILS ABSOLUTE AUTO 2.51 K/mm3 (1.96-9.15); NEUTROPHILS PERCENT AUTO 63 % (41-73); Platelet Count 198 K/mm3 (150-400); RDW Standard Deviation 65.1 fL (35.1-46.3); Red Blood Cell Count 3.55 M/mm3 (3.80-5.20)
[2023-09-02 18:24] LABS: Albumin/Globulin Ratio 0.7 (0.8-1.8); Bilirubin, Total 2.2 mg/dL (0.1-1.0); Bun/Creatinine Ratio 33.1 (12.0-20.0); Calcium, Blood 9.4 mg/dL (8.5-10.1); Creatinine, Blood 1.33 mg/dL (0.40-1.00); Globulin, Blood 4.5 g/dL (2.2-4.0); Magnesium, Blood 2.2 mg/dL (1.6-2.4); Potassium, Blood 3.9 mmol/L (3.5-5.5); Total Protein, Blood 7.5 g/dL (6.4-8.2)
[2023-09-02] MEDS ORDERED: Lactulose 20 GM/30 ML UDC PO ONE (18:35)
[2023-09-02] MEDS ORDERED: NS 1,000 ML IV ONE (18:35)
[2023-09-02 18:38] LABS: Bacteria Many /hpf; Mucus Light (0-Heavy); Red Blood Cells, Urine 0-2 /hpf (0-2); Squamous Epithelial Cells Rare /hpf (Few); Transitional Epithelial Cells Rare /hpf (0-Rare); White Blood Cells, Urine 25-50 /hpf (0-5)
[2023-09-02 19:00] VITALS: BP 133/52
[2023-09-02] MEDS ORDERED: Keflex500 MG PO (19:49)
[2023-09-02] MEDS ORDERED: Cephalexin Monohydrate 500 MG Cap PO ONE (19:50)
== END 2023-09-02 20:31 | disposition home or self-care (01) ==
LOC: ER 16:23
PROVIDERS: Emergency Medicine
DX: N39.0 Urinary tract infection, site not specified (principal); E86.0 Dehydration; K76.82 Hepatic encephalopathy; F03.90 Unspecified dementia, unspecified severity, without behavioral disturbance, psychotic disturbance, mood disturbance, and anxiety; E72.20 Disorder of urea cycle metabolism, unspecified; Z91.041 Radiographic dye allergy status; Z88.0 Allergy status to penicillin; Z91.013 Allergy to seafood; Z88.2 Allergy status to sulfonamides; Z88.5 Allergy status to narcotic agent; Z88.1 Allergy status to other antibiotic agents; Z79.899 Other long term (current) drug therapy; K21.9 Gastro-esophageal reflux disease without esophagitis; I12.9 Hypertensive chronic kidney disease with stage 1 through stage 4 chronic kidney disease, or unspecified chronic kidney disease; E78.5 Hyperlipidemia, unspecified; N18.2 Chronic kidney disease, stage 2 (mild); N18.30 Chronic kidney disease, stage 3 unspecified; M19.90 Unspecified osteoarthritis, unspecified site
CPT/HCPCS: 51701; 80053; 81001; 82140; 83690; 83735; 84145; 85025; 85610; 87077; 87086; 87186; 96360-59; 99285-25; A9270; J7030